=== PATIENT | male | born 1935 ===

== ENCOUNTER 2017-02-15 13:06 | Observation (INO) | payer MEDICARE ==
[2017-02-15 13:06] VITALS: BMI 29.0
[2017-02-15 14:29] LABS: BASO % 0.4 % (0.0-2.0); EOS # 0.1 K/uL (0.0-0.7); EOS % 2.2 % (0.0-4.0); HEMATOCRIT 45.7 % (35.0-51.0); LYMPH % 18.3 % (20.0-40.0); MEAN CELL VOLUME 88.8 fL (80.0-94.0); MEAN CORPUSCULAR HEMOGLOBIN 29.4 pg (27.0-31.0); MEAN CORPUSCULAR HGB CONC 33.2 g/dL (33.0-37.0); MEAN PLATELET VOLUME 8.6 fL (7.2-11.7); MONO # 0.5 K/uL (0.0-0.8); MONO % 8.5 % (0.0-10.0); NRBC % 0.1 % (0.0-2.0); RED CELL DISTRIBUTION WIDTH 14.6 % (11.5-14.5); WHITE BLOOD COUNT 5.7 K/uL (4.8-10.8)
[2017-02-15 14:33] LABS: INR 2.3
[2017-02-15 14:38] LABS: ALB/GLOB RATIO 1.5 (1.0-2.1); ALKALINE PHOSPHATASE 57 U/L (38-126); ALT/SGPT 34 U/L (21-72); AST/SGOT 26 U/L (17-59); BLOOD UREA NITROGEN 21 mg/dL (9-20); CALCIUM 8.6 mg/dl (8.6-10.4); CARBON DIOXIDE 25 mmol/L (22-30); CHLORIDE 105 mmol/L (98-107); GFR AFRICAN-AMERICAN > 60; GLUCOSE,RANDOM 101 mg/dL (75-110); POTASSIUM 4.6 mmol/L (3.6-5.2); SODIUM 138 mmol/L (132-148); TOTAL PROTEIN 7.1 g/dL (6.3-8.3)
--- NOTE | 2017-02-15 15:09 | RAD ---
PROCEDURE: CHEST RADIOGRAPH, 1 VIEW HISTORY: SOB COMPARISON: CT scan of the head chest, abdomen and pelvis dated 09/09/2015 FINDINGS: LUNGS: Clear. PLEURA: No pneumothorax or pleural fluid seen. CARDIOVASCULAR: Atherosclerotic aortic calcifications. OSSEOUS STRUCTURES: Unchanged. VISUALIZED UPPER ABDOMEN: Normal. OTHER FINDINGS: None. IMPRESSION: No active disease.
--- NOTE | 2017-02-15 15:20 | RAD ---
PROCEDURE: Radiographs of the right calcaneus/hindfoot. HISTORY: right heel pain after injury COMPARISON: None available. TECHNIQUE: Frontal and lateral radiographs of the calcaneus. FINDINGS: No fracture or joint dislocation. No focal lesion. There is a small plantar calcaneal spur. IMPRESSION: No acute fracture. Plantar calcaneal spur noted.
--- NOTE | 2017-02-15 16:55 | C.PDOC ---
History Of Present Illness 81 y/o male presents to ED with c/o right lower leg and heel pain for 9 days. Patient reports history of DVT and notes compliance with Coumadin. Patient states heel pain started on gi after the area was struck by a door. Patient also c/o intermittent chest pain since yeseterday, non-radiating, associated with exertional SOB. Denies fever, abdominal pain, nausea, vomiting, or diarrhea. Time Seen by Provider: 02/15/17 13:21 Chief Complaint (Nursing): Lower Extremity Problem/Injury History Per: Patient History/Exam Limitations: no limitations Onset/Duration Of Symptoms: Days Current Symptoms Are (Timing): Still Present Recent travel outside of the [place]: No Past Medical History Reviewed: Historical Data, Nursing Documentation, Vital Signs Vital Signs: Last Vital Signs Temp 98.2 F 02/15/17 17:14 Pulse 61 02/15/17 17:14 Resp 18 02/15/17 17:14 BP 127/53 L 02/15/17 17:14 Pulse Ox 98 02/15/17 17:14 - Medical History PMH: Arthritis, Deep Vein Thrombosis, Gall Bladder Disease, HTN, Hypercholesterolemia, Peripheral Edema Surgical History: Cholecystectomy, Endoscopy - [facility] Procedures DILATION OF INFERIOR VENA CAVA, PERCUTANEOUS APPROACH (09/08/15) DILATION OF LEFT COMMON ILIAC VEIN, PERCUTANEOUS APPROACH (09/08/15) FLUOROSCOPY BI LOW EXTREM VEIN W OTH CONTRAST, GUIDANCE (09/08/15) INTRODUCE OTH THROMBOLYTIC IN PERIPH VEIN, PERC (09/08/15) REMOVAL OF INFUSION DEVICE FROM LOWER VEIN, PERC APPROACH (09/08/15) ULTRASONOGRAPHY OF BI LOW EXTREM VEIN, INTRAVASC (09/08/15) Family History: States: Unknown Family Hx - Social History Hx Alcohol Use: Yes (SOCIALLY) Hx Substance Use: No - Immunization History Hx Tetanus Toxoid Vaccination: No Hx Influenza Vaccination: Yes Hx Pneumococcal Vaccination: Yes Review Of Systems Except As Marked, All Systems Reviewed And Found Negative. Constitutional: Negative for: Fever, Chills Cardiovascular: Positive for: Chest Pain Respiratory: Positive for: SOB with Excertion. Negative for: Cough Gastrointestinal: Negative for: Nausea, Vomiting, Abdominal Pain Musculoskeletal: Positive for: Foot Pain (R heel, R lower leg) Skin: Negative for: Rash Neurological: Negative for: Weakness, Numbness, Headache, Dizziness Physical Exam - Physical Exam Appears: Non-toxic, Other (comfortable, exertional dyspnea - sob when speaking) Skin: Normal Color, Warm, Dry Head: Atraumatic, Normacephalic Oral Mucosa: Moist Chest: Symmetrical Cardiovascular: Rhythm Regular, No Murmur Respiratory: No Accessory Muscle Use, Rales (faint), No Wheezing Gastrointestinal/Abdominal: Soft, No Tenderness Extremity: Tenderness (R heel tenderness w/o obvious swelling or deformity), Calf Tenderness (R), Capillary Refill (< 2 sec.), Other (chronic skin changes bilateral lower extremities) Extremity: Bilateral: Normal Color And Temperature Pulses: Left Dorsalis Pedis: Normal, Right Dorsalis Pedis: Normal Neurological/Psych: Oriented x3, Normal Speech, Normal Cognition ED Course And Treatment - Laboratory Results Result Diagrams: 02/15/17 14:17 02/15/17 14:17 ECG: Interpreted By Me ECG Rhythm: Sinus Rhythm Interpretation Of ECG: normal axis, Right BBB, no acute ST/T wave changes Rate From EC (bpm) O2 Sat by Pulse Oximetry: 98 (RA) Pulse Ox Interpretation: Normal - Radiology CXR: Read By Radiologist CXR Interpretation: Yes: No Acute Disease - Other Rad Right Heel XR X-Ray: Viewed By Me, Read By Radiologist Interpretation: FINDINGS: No fracture or joint dislocation. No focal lesion. There is a small plantar calcaneal spur. IMPRESSION: No acute fracture. Plantar calcaneal spur noted. Progress Note: EKG, CXR, bloodwork, venous duplex scan lower extremity, R heel x -ray ordered and reviewed. Aspirin 324mg PO given. As per vascular neurologist, chronic DVT R side. - Physician Consult Information Physician Contacted: Raman Stringer Outcome Of Conversation: Spoke with radiologist because CTA chest report not crossing over. As per him, suboptimal study, no central PE, (+) IVC filter, unable to evaluate peripheral pulm arteries. Disposition - Disposition Forms: [employer] (Pashto)
[2017-02-15] MEDS ORDERED: Iodixanol 320 MG/ML 100 ML BOTTLE IV ONE (17:49)
--- NOTE | 2017-02-15 20:12 | CT ---
PROCEDURE: CT Chest with contrast (Pulmonary Angiogram) HISTORY: DVT, R/O PE COMPARISON: None available. TECHNIQUE: Axial computed tomography images were obtained of the chest in the pulmonary arterial phase of enhancement. Coronal and sagittal reformatted images were created and reviewed. Intravenous contrast dose: Visipaque 320, 100 cc Radiation dose: Total exam DLP = 656.51 mGy-cm. This CT exam was performed using one or more of the following dose reduction techniques: Automated exposure control, adjustment of the mA and/or kV according to patient size, and/or use of iterative reconstruction technique. FINDINGS: PULMONARY ARTERIES: Intravenous contrast opacification is quite limited in this patient, in part due to what apparently is of very slow circulation time in this patient. No large pulmonary embolus is identified within the main pulmonary artery or the main right or left branches however secondary tertiary branches cannot be effectively evaluated for thrombosis unfortunately. AORTA: No thoracic aortic aneurysm appreciable. LUNGS: Linear atelectasis or fibrosis in the bilateral lower lobe somewhat. Restrained motion degrades quality examination. No central airway or parenchymal pulmonary mass is appreciated. PLEURAL SPACES: Unremarkable. No effusion or pneuomothorax. HEART: Unremarkable. No cardiomegaly. No significant pericardial effusion. LYMPH NODES: No lymphadenopathy. BONES, CHEST WALL: Unremarkable. No fracture or destructive lesion. 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 OTHER FINDINGS: Prior cholecystectomy. Inferior vena cava filter placement noted as well. IMPRESSION: Supple CT examination with no definite pattern of embolus within the main pulmonary artery or its left or right main branches. At branching distal to these central pulmonary arteries cannot be evaluated due to poor contrast opacification. No definite infiltrate pneumothorax pleural or pericardial effusion. Linear atelectasis or fibrosis in the bilateral lower lobes with no definitive mass evident. Prior cholecystectomy and inferior vena cava filter placement incidentally noted. Also, potential ankylosing spondylosis.
--- NOTE | 2017-02-15 21:50 | CP.PCM.HP ---
<StephenieEsme - Last Filed: 02/16/17 00:06> History of Present Illness - History of Present Illness History of Present Illness: History and Physical for Dr. Garcia 81M presents for shortness of breath. Patient states the shortness of breath has occurred for the last three weeks. Patient states he can't walk for more than 2 blocks because of his lower back, but is able to walk up stairs without difficulty. Patient lives in a one story home. Patient states he's never had this before. Patient states he has lower back pain, which is painful when he walks more than two blocks. 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 Patient states his most recent cath was negative one year ago. Patient denies fever, chills, nausea, vomiting, chest pain at the moment. PMH: recurrent DVTs with IVC filter 2015, HTN, Hypertension, peripheral vascular disease/insufficiency, kyphosis, ankylosing spondylitis PSH: cholecystectomy, IVC filter 2012, IVC filter 2015 Social history: former smoker 4 cig/day for twenty years. Patient quit "many years ago." Patient Denies ETOH and illicit drug use. Meds: none Famhx: denies Present on Admission - Present on Admission Any Indicators Present on Admission: Yes History of DVT/PE: Yes History of Uncontrolled Diabetes: No Urinary Catheter: No Decubitus Ulcer Present: No Past Patient History - Infectious Disease Hx of Infectious Diseases: None - Past Medical History & Family History Past Medical History?: Yes - Past Social History Smoking Status: Never Smoked - CARDIAC Hx Hypercholesterolemia: Yes Hx Hypertension: Yes Hx Peripheral Edema: Yes - MUSCULOSKELETAL/RHEUMATOLOGICAL Hx Arthritis: Yes - GASTROINTESTINAL Hx Gall Bladder Disease: Yes - GENITOURINARY/GYNECOLOGICAL Hx Genitourinary Disorders: Yes Hx Urinary Tract Infection: Yes - PSYCHIATRIC Hx Substance Use: No - SURGICAL HISTORY Hx Cholecystectomy: Yes - ANESTHESIA Hx Anesthesia: Yes Hx Anesthesia Reactions: No Hx Malignant Hyperthermia: No Meds Allergies/Adverse Reactions: Allergies Allergy/AdvReac Type Severity Reaction Status Date / Time No Known Allergies Allergy Verified 01/08/16 14:20 Physical Exam - Constitutional Appears: Non-toxic - Head Exam Head Exam: NORMAL INSPECTION - Eye Exam Eye Exam: EOMI, Normal appearance - ENT Exam ENT Exam: Mucous Membranes Moist - Respiratory Exam Respiratory Exam: NORMAL BREATHING PATTERN. absent: Accessory Muscle Use, Respiratory Distress - Cardiovascular Exam Cardiovascular Exam: REGULAR RHYTHM, +S1, +S2. absent: Bradycardia, Tachycardia - GI/Abdominal Exam GI & Abdominal Exam: Soft. absent: Tenderness - Extremities Exam Extremities exam: Positive for: full ROM, pedal edema Additional comments: 2+ pitting edema of lower extremities peripheral vascular insufficiency noted bilaterally lower extremities mottled in appearance below the knee capillary refill <2seconds bilaterally DP, PT, and AT pulses palpated bilaterally with the right pulses weaker than left - Back Exam Additional comments: patient has kyphosis, but has good rotational motion - Neurological Exam Neurological exam: Alert, Oriented x3 - Psychiatric Exam Psychiatric exam: Normal Affect, Normal Mood - Skin Skin Exam: Dry, Warm Results - Vital Signs Recent Vital Signs: Last Vital Signs Temp 98.1 F 02/15/17 21:26 Pulse 57 L 02/15/17 21:26 Resp 20 02/15/17 21:26 BP 160/69 H 02/15/17 21:26 Pulse Ox 96 02/15/17 21:26 - Labs Result Diagrams: 02/15/17 14:17 02/15/17 14:17 Labs: Laboratory Results - last 24 hr 02/15/17 02/15/17 02/15/17 14:17 14:17 14:17 WBC 5.7 RBC 5.14 Hgb 15.1 Hct 45.7 MCV 88.8 D MCH 29.4 MCHC 33.2 RDW 14.6 H Plt Count 185 MPV 8.6 Neut % (Auto) 70.6 Lymph % (Auto) 18.3 L Harris % (Auto) 8.5 Eos % (Auto) 2.2 Baso % (Auto) 0.4 Neut # 4.0 Lymph # 1.0 Harris # 0.5 Eos # 0.1 Baso # 0.0 PT 26.1 H INR 2.3 APTT 42 H Sodium 138 Potassium 4.6 Chloride 105 Carbon Dioxide 25 Anion Gap 13 BUN 21 H Creatinine 1.1 Est GFR ( Amer) > 60 Est GFR (Non-Af Amer) > 60 Random Glucose 101 Calcium 8.6 Total Bilirubin 1.0 AST 26 ALT 34 Alkaline Phosphatase 57 Total Creatine Kinase 205 H CK-MB (Mass) 1.31 Troponin I < 0.0120 NT-Pro-B Natriuret Pep 266 Total Protein 7.1 Albumin 4.3 Globulin 2.9 Albumin/Globulin Ratio 1.5 Assessment & Plan - Assessment and Plan (Free Text) Assessment: SOB with exertion for past month, with anginal symptoms f/u 02/17 ECHO outpatient stress test Ativan 2mg POQHS HTN history home medication Norvasc 5mg POQD hydralazine PRN, hold systolic BP<140 IVC filter hx DVT Warfarin 5mg POQD coag panel daily Prophylaxis: DVT: patient is on warfarin GI: Protonix fever and pain: tylenol 650mg POQ6H Diet: Heart Healthy diet discussed with Dr. Jose Casiano DO PGY1 - Date & Time Date: 02/16/17 Time: 00:03 <Chao Garcia - Last Filed: 02/16/17 00:47> Results - Vital Signs Recent Vital Signs: Last Vital Signs Temp 98.0 F 02/15/17 22:59 Pulse 55 L 02/15/17 22:59 Resp 16 02/15/17 22:59 BP 180/66 H 02/15/17 22:59 Pulse Ox 95 02/15/17 22:59 - Labs Result Diagrams: 02/15/17 14:17 02/15/17 14:17 Labs: Laboratory Results - last 24 hr 02/15/17 02/15/17 02/15/17 14:17 14:17 14:17 WBC 5.7 RBC 5.14 Hgb 15.1 Hct 45.7 MCV 88.8 D MCH 29.4 MCHC 33.2 RDW 14.6 H Plt Count 185 MPV 8.6 Neut % (Auto) 70.6 Lymph % (Auto) 18.3 L Harris % (Auto) 8.5 Eos % (Auto) 2.2 Baso % (Auto) 0.4 Neut # 4.0 Lymph # 1.0 Harris # 0.5 Eos # 0.1 Baso # 0.0 PT 26.1 H INR 2.3 APTT 42 H Sodium 138 Potassium 4.6 Chloride 105 Carbon Dioxide 25 Anion Gap 13 BUN 21 H Creatinine 1.1 Est GFR ( Amer) > 60 Est GFR (Non-Af Amer) > 60 Random Glucose 101 Calcium 8.6 Total Bilirubin 1.0 AST 26 ALT 34 Alkaline Phosphatase 57 Total Creatine Kinase 205 H CK-MB (Mass) 1.31 Troponin I < 0.0120 NT-Pro-B Natriuret Pep 266 Total Protein 7.1 Albumin 4.3 Globulin 2.9 Albumin/Globulin Ratio 1.5 Attending/Attestation - Attestation I have personally seen and examined this patient.: Yes I have fully participated in the care of the patient.: Yes I have reviewed all pertinent clinical information: Yes Notes (Text): Assessment * SOB for 1 month with house hold work, walking limited by back pain, not progressive and not symptomatic at time of exam, h/o pe, therapeutic anticoagulation, negative proximal PE on CTA, 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
[2017-02-16 08:14] LABS: BASO % 0.5 % (0.0-2.0); EOS # 0.2 K/uL (0.0-0.7); EOS % 4.3 % (0.0-4.0); HEMATOCRIT 44.6 % (35.0-51.0); LYMPH # 0.9 K/uL (1.0-4.3); MEAN CELL VOLUME 87.9 fL (80.0-94.0); MEAN CORPUSCULAR HEMOGLOBIN 29.6 pg (27.0-31.0); MEAN CORPUSCULAR HGB CONC 33.7 g/dL (33.0-37.0); MEAN PLATELET VOLUME 8.2 fL (7.2-11.7); MONO # 0.5 K/uL (0.0-0.8); MONO % 10.9 % (0.0-10.0); NRBC % 0.2 % (0.0-2.0); RED CELL DISTRIBUTION WIDTH 14.7 % (11.5-14.5); WHITE BLOOD COUNT 4.7 K/uL (4.8-10.8)
[2017-02-16 08:56] LABS: ALB/GLOB RATIO 1.5 (1.0-2.1); ALKALINE PHOSPHATASE 58 U/L (38-126); ALT/SGPT 35 U/L (21-72); AST/SGOT 21 U/L (17-59); BILIRUBIN,TOTAL 1.1 mg/dL (0.2-1.3); BLOOD UREA NITROGEN 16 mg/dL (9-20); CALCIUM 8.5 mg/dl (8.6-10.4); CARBON DIOXIDE 26 mmol/L (22-30); CHLORIDE 105 mmol/L (98-107); CHOLESTEROL 202 mg/dL (0-199); GFR AFRICAN-AMERICAN > 60; GLUCOSE,RANDOM 113 mg/dL (75-110); SODIUM 138 mmol/L (132-148); TOTAL PROTEIN 6.5 g/dL (6.3-8.3)
--- NOTE | 2017-02-16 09:49 | CARD ---
APPROVED REPORT EXAM: Two-dimensional and M-mode echocardiogram with Doppler and color Doppler. Other Information Quality : AverageRhythm : NSR INDICATION Dyspnea Chest Pain M-Mode DIMENSIONS RVDd1.02 (2.1-3.2cm)Left Atrium (MM)4.84 (2.5-4.0cm) IVSd0.78 (0.7-1.1cm)Aortic Root3.51 (2.2-3.7cm) LVDd6.72 (4.0-5.6cm)Aortic Cusp Exc.1.95 (1.5-2.0cm) PWd0.78 (0.7-1.1cm)FS (%) 30 % LVDs4.69 (2.0-3.8cm)LVEF (%)56 (>50%) Aortic Valve AoV Peak Rrssimqb572.0cm/Maria Eugenia Peak GR.9mmHg Mitral Valve MV E Ykfhkbpa83.3cm/sMV A Rcxtrino44.4cm/sE/A ratio0.8 TDI E/Lateral E'0.0E/Medial E'0.0 Tricuspid Valve TR Peak Klmgbepp542cy/sTR Peak Gr.[id number] LEFT VENTRICLE The left ventricle is normal size. There is normal left ventricular wall thickness. The left ventricular function is normal. The left ventricular ejection fraction is within the normal range. There is normal LV segmental wall motion. Transmitral Doppler flow pattern is Grade I-abnormal relaxation pattern. RIGHT VENTRICLE The right ventricle is normal size. There is normal right ventricular wall thickness. The right ventricular systolic function is normal. ATRIA The left atrium is mildly dilated. The right atrium size is normal. AORTIC VALVE The aortic valve is normal in structure. There is trace aortic regurgitation. There is no aortic valvular stenosis. MITRAL VALVE The mitral valve is normal in structure. There is no evidence of mitral valve prolapse. TRICUSPID VALVE The tricuspid valve is normal in structure. GREAT VESSELS The aortic root is normal in size. The IVC was not visualized. PERICARDIAL EFFUSION There is a trace loculated anterior pericardial effusion. <Conclusion> The left ventricle is normal size. There is normal left ventricular wall thickness. The left ventricular function is normal. The left ventricular ejection fraction is within the normal range. There is normal LV segmental wall motion. Transmitral Doppler flow pattern is Grade I-abnormal relaxation pattern.
--- NOTE | 2017-02-16 13:49 | CP.PCM.PN ---
<ChaySandra - Last Filed: 02/16/17 14:45> Subjective - Date & Time of Evaluation Date of Evaluation: 02/16/17 Time of Evaluation: 13:49 - Subjective Subjective: Medicine Progress Note Patient seen and examined. Patient states that he feels better today and is no longer experiencing shortness of breath. However, the patient complains that when he ambulates he experiences cramping in his legs. Patient also states that his right leg feels cold and that this is a new symptom. Per patient, he has not seen a tail board man since his last hospital visit one year ago. He states that at that time he had a cardiac cath and was told that his heart was healthy so he did not think he needed to follow up after discharge. Patient currently denies chest pain, palpitations, cough, dyspnea, abdominal pain, and urinary symptoms. Objective - Vital Signs/Intake and Output Vital Signs (last 24 hours): Temp Pulse Resp BP Pulse Ox 97.3 F L 54 L 18 148/67 96 02/16/17 07:20 02/16/17 07:30 02/16/17 07:20 02/16/17 07:20 02/16/17 07:20 - Medications Medications: Current Medications Acetaminophen (Tylenol 325mg Tab) 650 mg PO Q6 PRN PRN Reason: Fever >100.4 F Last Admin: 02/15/17 23:14 Dose: 650 mg Amlodipine Besylate (Norvasc) 5 mg PO DAILY [facility] Last Admin: 02/16/17 09:09 Dose: 5 mg Lorazepam (Ativan) 2 mg PO HS [facility] Pantoprazole Sodium (Protonix Inj) 40 mg IVP DAILY [facility] Last Admin: 02/16/17 09:09 Dose: 40 mg Warfarin Sodium (Coumadin) 5 mg PO DAILY [facility] - Labs Labs: 02/16/17 08:05 02/16/17 08:05 PT 26.1 SECONDS (9.7-12.2) H 02/15/17 14:17 INR 2.3 02/15/17 14:17 APTT 42 SECONDS (21-34) H 02/15/17 14:17 - Constitutional Appears: Non-toxic, No Acute Distress - Head Exam Head Exam: ATRAUMATIC, NORMOCEPHALIC - Eye Exam Eye Exam: EOMI, Normal appearance - ENT Exam ENT Exam: Mucous Membranes Moist, Normal Exam - Respiratory Exam Respiratory Exam: Clear to Ausculation Bilateral, NORMAL BREATHING PATTERN. absent: Rhonchi, Wheezes, Respiratory Distress - Cardiovascular Exam Cardiovascular Exam: REGULAR RHYTHM, +S1, +S2 - GI/Abdominal Exam GI & Abdominal Exam: Soft, Normal Bowel Sounds - Extremities Exam Additional comments: Left: 1+ pitting edema of LE, skin mottled, non-blanching, warm Right: foot cool to touch, pulses not palpable, skin mottled, non-blanching - Back Exam Additional comments: thoracic kyphosis - Neurological Exam Neurological Exam: Alert, Awake, Normal Gait, Oriented x3 - Psychiatric Exam Psychiatric exam: Normal Affect, Normal Mood - Skin Skin Exam: Dry, Intact Assessment and Plan - Assessment and Plan (Free Text) Assessment: Dyspnea SpO2 98% on room air CXR- no active disease CT chest- Supple CT examination with no definite pattern of embolus within the main pulmonary artery or its left or right main branches. No definite infiltrate pneumothorax pleural or pericardial effusion. Linear atelectasis or fibrosis in the bilateral lower lobes with no definitive mass evident. Prior cholecystectomy and inferior vena cava filter placement incidentally noted. Also , potential ankylosing spondylosis. 02/17/17 ECHO- LV EF normal Consulted Pre Fabricator Dr Matos to assess if patient should have inpatient stress test. Rule out cardiac cause of SOB. May be secondary to severe thoracic kyphosis causing stress on lungs HTN Well controlled on home medication Norvasc 5mg PO QD hydralazine PRN, hold systolic BP<140 hx DVT IVC in place as seen on CT scan Warfarin 5mg PO QD Check coag panel daily Right LE doppler + DVT femoral and popliteal arteries f/u Left LE doppler Peripheral Arterial Disease f/u arterial dopplers of lower extremities pain: tylenol 650mg POQ6H Insomnia Ativan 2mg PO QHS Prophylaxis DVT: patient is on warfarin GI: Protonix SCD contraindicated due to DVT Diet: Heart Healthy diet <Chavo Domingo - Last Filed: 02/16/17 19:44> Objective - Vital Signs/Intake and Output Vital Signs (last 24 hours): Temp Pulse Resp BP Pulse Ox 98.1 F 56 L 18 142/62 96 02/16/17 17:39 02/16/17 17:39 02/16/17 17:39 02/16/17 17:39 12/02/17 17:39 - Medications Medications: Current Medications Acetaminophen (Tylenol 325mg Tab) 650 mg PO Q6 PRN PRN Reason: Fever >100.4 F Last Admin: 02/15/17 23:14 Dose: 650 mg Amlodipine Besylate (Norvasc) 5 mg PO DAILY [facility] Last Admin: 02/16/17 09:09 Dose: 5 mg Famotidine (Pepcid) 20 mg PO BID [facility] Last Admin: 02/16/17 17:23 Dose: 20 mg Lorazepam (Ativan) 2 mg PO HS MARIA LUZ Rosuvastatin Calcium (Crestor) 5 mg PO HS MARIA LUZ Warfarin Sodium (Coumadin) 5 mg PO ONCE ONE Stop: 02/17/17 18:52 - Labs Labs: 02/16/17 08:05 02/16/17 08:05 PT 26.1 SECONDS (9.7-12.2) H 02/15/17 14:17 INR 2.3 02/15/17 14:17 APTT 42 SECONDS (21-34) H 02/15/17 14:17 Attending/Attestation - Attestation I have personally seen and examined this patient.: Yes I have fully participated in the care of the patient.: Yes I have reviewed all pertinent clinical information, including history, physical exam and plan: Yes Notes (Text): 02/16/17 19:33 Patient was seen and examined at 5:15 PM 02/16/17 [id number]. Exam, assessment and plan were thoroughly gone over with the patient Assessments: 1). SOB Secondary to Kyphosis? Secondary to worsening CAD? Does he did inpatient vs outpatient persantine stress test? F/U further recommendations from Pre Fabricator Dr. Matos. Chest X Ray: no active disease CT Chest Angio: linear atelectasis/fibrosis in the bilateral lower lobes with NO definite mass evident. 2). Hx CAD S/P Cardiac Catheterization January 2016 at [facility]: LAD 40% stenosis proximal segment. Left Circumflex 30% stenosis of mid vessel and 60% stenosis of 1st obtuse marginal artery Medical management. Patient never followed up with Cardiology 3). Hx HTN Norvasc 5 mg PO 1x/day 4). Hx Recurrent DVTs IVC Filter 2015 Warfarin 5 mg PO 1x/day 5). Hx HLD Crestor 5 mg PO 1x/day 6). PVD? F/U Arterial Dopplers 7) Ankylosing Spondylitis/Kyphosis As per CT Chest Angio. 8). Prophylaxis Pepcid 20 mg PO 2x/day Patient is on Warfarin Chavo Domingo D.O.
[2017-02-17 00:30] LABS: INR 1.8
[2017-02-17 01:10] VITALS: RESP 20
--- NOTE | 2017-02-17 03:45 | CON ---
DATE: CARDIOLOGY CONSULTATION REASON FOR CONSULTATION: Chest pain, history of DVT, and IVC filter placement in the past. HISTORY OF PRESENT ILLNESS: The patient is an 81-year-old male who is a former smoker. Patient presented to the emergency room because of intermittent chest pain, nonradiating, associated with shortness of breath. The patient did report right lower leg and heel pain. Patient denies any associated diaphoresis, dizziness, or syncope. The patient underwent cardiac catheterization in January of last year, which revealed 40% stenosis of the proximal LAD, 30% stenosis of the mid circumflex artery, and 60% stenosis of the first obtuse marginal branch. SOCIAL HISTORY: The patient is a former smoker. MEDICATIONS: Ativan 2 mg at bedtime, Coumadin 5 mg daily, Crestor 5 mg once a day, Norvasc 5 mg once a day. REVIEW OF SYSTEMS: No nausea or vomiting. No fever or chills. No productive cough. PHYSICAL EXAMINATION: GENERAL: The patient is an elderly male, who does not appear to be in any acute distress. VITAL SIGNS: Blood pressure 148/67, heart rate 53, temperature 97.3, respirations 18. HEENT: Normocephalic. CHEST: Clear. HEART: S1, S2 regular. ABDOMEN: Soft. EXTREMITIES: No edema. LABORATORY DATA: SMA-7 is within normal limits except for glucose of 115. One set of troponin is negative. Total cholesterol is elevated to 102, LDL cholesterol is elevated at 132. PTT 42, INR is 2.3. Hemoglobin and hematocrit 15 and 44.6, white count 4.7, platelet count 183,000. Echocardiogram revealed normal left ventricular size, wall thickness, and ejection fraction with grade 1 abnormal relaxation pattern. EKG revealed sinus rhythm, right bundle-branch block. CT angio of the chest, no definite embolus within the main pulmonary artery or its left or right main branches. At the branching distal to the central pulmonary arteries, cannot be elevated due to poor contrast opacification. Linear atelectasis or fibrosis in the bilateral lower lobes with no definite mass. ASSESSMENT: 1. Atypical chest pain, rule out myocardial infarction. 2. Moderate disease of the first obtuse margin branch on a cardiac catheterization done last year. 3. Hyperlipidemia. 4. History of deep vein thrombosis, status post inferior vena cava filter placement. RECOMMENDATIONS: Continue Coumadin 5 mg once a day, Crestor 5 mg once a day, Norvasc 5 mg once a day. Obtain one more 12-lead EKG and repeat troponin and if both are unremarkable, the patient can be discharged to the [facility] by his primary [place] guide, Dr. Hardy, as well as Dr. Jackeline Reno. Yogi Matos MD
[2017-02-17 08:31] LABS: INR 1.7
[2017-02-17 08:40] LABS: BASO % 0.4 % (0.0-2.0); EOS # 0.1 K/uL (0.0-0.7); EOS % 2.2 % (0.0-4.0); HEMATOCRIT 46.5 % (35.0-51.0); LYMPH # 1.7 K/uL (1.0-4.3); LYMPH % 27.4 % (20.0-40.0); MEAN CELL VOLUME 88.5 fL (80.0-94.0); MEAN CORPUSCULAR HEMOGLOBIN 29.8 pg (27.0-31.0); MEAN CORPUSCULAR HGB CONC 33.7 g/dL (33.0-37.0); MEAN PLATELET VOLUME 8.2 fL (7.2-11.7); MONO # 0.5 K/uL (0.0-0.8); MONO % 8.9 % (0.0-10.0); RED CELL DISTRIBUTION WIDTH 14.8 % (11.5-14.5); WHITE BLOOD COUNT 6.1 K/uL (4.8-10.8)
[2017-02-17 09:10] LABS: ALB/GLOB RATIO 1.5 (1.0-2.1); ALKALINE PHOSPHATASE 60 U/L (38-126); ALT/SGPT 30 U/L (21-72); AST/SGOT 41 U/L (17-59); BILIRUBIN,TOTAL 1.1 mg/dL (0.2-1.3); BLOOD UREA NITROGEN 20 mg/dL (9-20); CALCIUM 8.4 mg/dl (8.6-10.4); CARBON DIOXIDE 27 mmol/L (22-30); CHLORIDE 105 mmol/L (98-107); GFR AFRICAN-AMERICAN > 60; GLUCOSE,RANDOM 124 mg/dL (75-110); POTASSIUM 4.2 mmol/L (3.6-5.2); SODIUM 140 mmol/L (132-148); TOTAL PROTEIN 6.8 g/dL (6.3-8.3)
--- NOTE | 2017-02-17 11:31 | CP.PCM.PN ---
<Madhuri Lobo - Last Filed: 02/17/17 13:40> Subjective - Date & Time of Evaluation Date of Evaluation: 02/17/17 Time of Evaluation: 08:40 - Subjective Subjective: Medicine Note (PGY-1)----> Dr. Funmilayo Domingo's service Patient was seen and examined at bedside. Patient states that he is doing well. Patient denies chest pain, SOB, palpitations, headache, dizziness. Per patient, he is tolerating diet and able to ambulate. Patient did admit to constipation and right abdominal pain. Objective - Vital Signs/Intake and Output Vital Signs (last 24 hours): Temp Pulse Resp BP Pulse Ox 97.2 F L 56 L 20 156/67 H 97 02/16/17 23:10 02/17/17 07:28 02/16/17 23:10 02/16/17 23:10 02/16/17 23:10 Intake and Output: 02/17/17 02/17/17 06:59 18:59 Intake Total 120 Balance 120 - Medications Medications: Current Medications Acetaminophen (Tylenol 325mg Tab) 650 mg PO Q6 PRN PRN Reason: Fever >100.4 F Last Admin: 02/17/17 09:11 Dose: 650 mg Amlodipine Besylate (Norvasc) 5 mg PO DAILY [facility] Last Admin: 02/17/17 09:08 Dose: 5 mg Famotidine (Pepcid) 20 mg PO BID [facility] Last Admin: 02/17/17 09:08 Dose: 20 mg Lorazepam (Ativan) [address] [facility] Last Admin: 02/16/17 21:54 Dose: 2 mg Rosuvastatin Calcium (Crestor) 5 mg PO HS [facility] Last Admin: 02/16/17 21:54 Dose: 5 mg Warfarin Sodium (Coumadin) 5 mg PO ONCE ONE Stop: 02/17/17 18:52 - Labs Labs: 02/17/17 08:20 02/17/17 08:20 PT 19.6 SECONDS (9.7-12.2) H 02/17/17 08:20 INR 1.7 02/17/17 08:20 APTT 42 SECONDS (21-34) H 02/15/17 14:17 - Constitutional Appears: No Acute Distress - Head Exam Head Exam: ATRAUMATIC, NORMAL INSPECTION - Eye Exam Eye Exam: EOMI - ENT Exam ENT Exam: Mucous Membranes Moist - Respiratory Exam Respiratory Exam: Clear to Ausculation Bilateral, NORMAL BREATHING PATTERN - Cardiovascular Exam Cardiovascular Exam: REGULAR RHYTHM, +S1, +S2 - GI/Abdominal Exam GI & Abdominal Exam: Soft, Tenderness, Normal Bowel Sounds Additional comments: Mid Right sided abdominal tenderness - Extremities Exam Extremities Exam: absent: Calf Tenderness, Pedal Edema Additional comments: Bilateral dryness with healed wounds. - Neurological Exam Neurological Exam: Alert, Awake, Oriented x3 - Psychiatric Exam Psychiatric exam: Normal Affect - Skin Skin Exam: Normal Color Assessment and Plan (1) Dyspnea Assessment & Plan: Possibly secondary to severe thoracic kyphosis Central Service Tech, Dr. Matos on board----> Help appreciated * Management as per recommendation SPO2 (97-95% on room air) Imaging: Chest X-ray (02/15/17): No active disease. Chest CT (02/15/17): No definite pattern of embolus within the main pulmonary artery or its left or right main branches. No definite infiltrate pneumothorax pleural or pericardial effusion. Linear atelectasis or fibrosis in the bilateral lower lobes with no definitive mass evident. Echocardiogram (02/16/17): LV is normal size. Normal LV wall thickness. LV function is normal. EF is within normal range. Normal LV segment wall motion. Grade I abnormal relaxation pattern Status: Acute (2) Hypertension Assessment & Plan: Controlled Medication: * Norvasc 5mg po daily Status: Acute (3) History of DVT (deep vein thrombosis) Assessment & Plan: 09/13/16: vemogram/ removal of ekos catheters. balloon venoplasty ot cava below filter and left iliac Medication/Management: * Warfarin 5mg PO QD * Daily coag panel check Right LE doppler + DVT femoral and popliteal arteries F/u Left LE doppler Status: Acute (4) History of coronary artery disease Assessment & Plan: (Cardai catherization 02/02/16, [facility]): Moderate single vessel branch CAD. Normal Left ventricular function. LAD 40% stenosis proximal segment. Left Circumflex 30% stenosis of mid vessel and 60% stenosis of 1st obtuse marginal artery Recommendation: * Aggressive medical therapy Status: Acute (5) History of hypertension Assessment & Plan: Stable * Norvasc 5mg PO daily Status: Acute (6) History of hyperlipidemia Assessment & Plan: Crestor 5mg PO HS Status: Acute (7) Peripheral arterial disease Assessment & Plan: f/u arterial dopplers of lower extremities pain: tylenol 650mg POQ6H Status: Acute (8) Hx of ankylosing spondylitis Assessment & Plan: As per Chest CT: Kyphoscoliotic cervicothoracic spine deformity with diffuse spondylosis identified suspicious for possible ankylosing spondylosis. Status: Acute (9) Insomnia Status: Acute (10) Prophylactic measure Assessment & Plan: GI: Pepcid 20mg PO BID DVT: SCD contraindicated due to RLE DVT and awaiting LLE venous doppler result. Coumadin 5mg PO daily Status: Acute <Chavo Domingo - Last Filed: 02/17/17 16:36> Objective - Vital Signs/Intake and Output Vital Signs (last 24 hours): Temp Pulse Resp BP Pulse Ox 98.1 F 56 L 20 102/58 L 95 02/17/17 07:00 02/17/17 07:28 02/17/17 07:00 02/17/17 07:00 02/17/17 07:00 Intake and Output: 02/17/17 02/17/17 06:59 18:59 Intake Total 120 Balance 120 - Medications Medications: Current Medications Acetaminophen (Tylenol 325mg Tab) 650 mg PO Q6 PRN PRN Reason: Fever >100.4 F Last Admin: 02/17/17 09:11 Dose: 650 mg Amlodipine Besylate (Norvasc) 5 mg PO DAILY [facility] Last Admin: 02/17/17 09:08 Dose: 5 mg Docusate Sodium (Colace) 100 mg PO BID [facility] Famotidine (Pepcid) 20 mg PO BID [facility] Last Admin: 02/17/17 09:08 Dose: 20 mg Lorazepam (Ativan) 2 mg PO HS [facility] Last Admin: 02/16/17 21:54 Dose: 2 mg Rosuvastatin Calcium (Crestor) 5 mg PO HS [facility] Last Admin: 02/16/17 21:54 Dose: 5 mg Sennosides (Senokot Tab) 8.6 mg PO DAILY [facility] Last Admin: 02/17/17 15:55 Dose: 8.6 mg Warfarin Sodium (Coumadin) 5 mg PO ONCE ONE Stop: 02/17/17 18:52 - Labs Labs: 02/17/17 08:20 02/17/17 08:20 PT 19.6 SECONDS (9.7-12.2) H 02/17/17 08:20 INR 1.7 02/17/17 08:20 APTT 42 SECONDS (21-34) H 02/15/17 14:17 Attending/Attestation - Attestation I have personally seen and examined this patient.: Yes I have fully participated in the care of the patient.: Yes I have reviewed all pertinent clinical information, including history, physical exam and plan: Yes Notes (Text): 02/17/17 16:18 Patient was seen and examined at 4:00 PM 02/17/17 [id number]. Exam, assessment and plan were thoroughly gone over with the patient Also on ROS: NO longer with SOB NO chest Pain NO wheezing NO abdominal pain NO n/v/d/c NO burning/pain with urination Still with some bilateral LE pain after ambulation (he has been getting up every few hours and walking the rounds on 6tower) NO other complaints upon FULL ROS Also please note on Exam: Extremities: Bilateral Lower Legs with chronic venous insufficiency skin changes. NO ulcers noted. Bilateral UE pulses are strong and equal. Bilateral LE pulses are equal but less than UE. Some mild pitting edema from ankles to mid tibia. Assessments: 1). SOB Secondary to Kyphosis? Secondary to worsening CAD? I spoke with Central Service Tech Dr. Matos (who has reviewed his EKGs, and Echo) and he is cleared from his standpoint to follow up with as an outpatient with Central Service Tech Dr. Reno (who performed Cardiac Cath in January 2016 but with whom the patient never followed up with) for further management Secondary to undiagnosed COPD as patient has a history of smoking? Started patient on Spiriva 2 PO inhalations of 1 capsule (18 mcg) once a day via [employer] inhalation device. 2D Echocardiogram shows normal LV size, normal left ventricular wall thickness, EF is estimated to be normal, Grade I abnormal relaxation pattern. Chest X Ray: no active disease CT Chest Angio: linear atelectasis/fibrosis in the bilateral lower lobes with NO definite mass evident. 2). Hx CAD S/P Cardiac Catheterization January 2016 at [facility]: LAD 40% stenosis proximal segment. Left Circumflex 30% stenosis of mid vessel and 60% stenosis of 1st obtuse marginal artery 2D Echocardiogram 02/16/17 shows normal LV size, normal left ventricular wall thickness, EF is estimated to be normal, Grade I abnormal relaxation pattern. Medical management. Patient never followed up with Cardiology Dr. Reno after Cardiac Catheterization. He was instructed to do so 3). Hx HTN Norvasc 5 mg PO 1x/day 4). Hx Recurrent DVTs IVC Filter 2016 Warfarin 5 mg PO 1x/day Venous Doppler 02/15/17 confirms DVT on Right Femoral/Popliteal 5). Hx HLD Crestor 5 mg PO 1x/day 6). PVD? F/U Arterial Dopplers which were ordered 02/16/17 but still not done as of my exam 7) Ankylosing Spondylitis/Kyphosis As per CT Chest Angio. Will need follow up with Rheumatology as an outpatient 8). Prophylaxis Pepcid 20 mg PO 2x/day Patient is on Warfarin Medicine Team: patient may be discharged on 02/18/17 after performance and report of Arterial Dopplers He will need to follow up with his PMD Dr. Fitzpatrick and through his office obtain the following: Referral for Cardiology Dr. Reno for further management/evaluation of his CAD Referral for Mortgage Advisor Dr. Galaviz for further management/evaluation of possible COPD Referral for Facilities Engineer Dr. Jett Fan for management/evaluation of Akylosing Spondylitis Chavo Domingo D.O. 02/17/17 16:33
--- NOTE | 2017-02-17 17:58 | PN ---
DATE: SUBJECTIVE: The patient denies any chest pain or shortness of breath. PHYSICAL EXAMINATION: VITAL SIGNS: Blood pressure 102/58, heart rate 61, temperature 98.1, respirations 20. HEENT: Normocephalic. CHEST: Clear. HEART: S1, S2 regular. ABDOMEN: Soft. EXTREMITIES: No edema. LABORATORY DATA: Today's SMA-7 is within normal limits except for glucose of 124. Two sets of troponins are negative. Hemoglobin, hematocrit, white count, and platelet count are within normal limits. Repeat EKG revealed sinus rhythm with right bundle branch block. No acute ischemic changes. ASSESSMENT: 1. Atypical chest pain, myocardial infarction was ruled out. 2. Consider underlying chronic obstructive lung disease. 3. Moderate coronary artery disease with 60% first obtuse marginal branch disease on a cardiac catheterization done in 01/2016. 4. History of deep venous thrombosis and inferior vena cava filter placement. 5. Hyperlipidemia. RECOMMENDATIONS: Case was discussed with Dr. Chavo Domingo. The patient can be maintained on all of his current medications including Coumadin, Crestor, Norvasc, and Pepcid. The patient can be discharged to follow up with his cartridge filler, both Dr. Hardy and Dr. Jackeline Reno. Yogi Matos MD
[2017-02-18 06:39] LABS: EOS # 0.2 K/uL (0.0-0.7); RED CELL DISTRIBUTION WIDTH 14.6 % (11.5-14.5)
[2017-02-18 06:40] LABS: INR 1.8
[2017-02-18 06:49] LABS: ALB/GLOB RATIO 1.1 (1.0-2.1); ALKALINE PHOSPHATASE 51 U/L (38-126); ALT/SGPT 34 U/L (21-72); AST/SGOT 22 U/L (17-59); BILIRUBIN,TOTAL 0.5 mg/dL (0.2-1.3); BLOOD UREA NITROGEN 23 mg/dL (9-20); CALCIUM 7.9 mg/dl (8.6-10.4); CARBON DIOXIDE 25 mmol/L (22-30); CHLORIDE 106 mmol/L (98-107); GFR AFRICAN-AMERICAN > 60; GLUCOSE,RANDOM 113 mg/dL (75-110); SODIUM 140 mmol/L (132-148); TOTAL PROTEIN 6.5 g/dL (6.3-8.3)
[2017-02-18 06:51] LABS: BASO % 0.4 % (0.0-2.0); EOS % 3.8 % (0.0-4.0); HEMATOCRIT 41.4 % (35.0-51.0); LYMPH # 1.3 K/uL (1.0-4.3); LYMPH % 26.9 % (20.0-40.0); MEAN CELL VOLUME 87.8 fL (80.0-94.0); MEAN CORPUSCULAR HEMOGLOBIN 29.7 pg (27.0-31.0); MEAN CORPUSCULAR HGB CONC 33.8 g/dL (33.0-37.0); MEAN PLATELET VOLUME 8.5 fL (7.2-11.7); MONO # 0.6 K/uL (0.0-0.8); MONO % 12.9 % (0.0-10.0); WHITE BLOOD COUNT 4.8 K/uL (4.8-10.8)
--- NOTE | 2017-02-18 07:50 | CP.PCM.PN ---
Subjective - Date & Time of Evaluation Date of Evaluation: 02/18/17 Time of Evaluation: 07:48 - Subjective Subjective: Progress Note for Dr. Elias Patient seen and examined at bedside, no acute events overnight. Patient denies fever, chills, shortness of breath, leg pain, foot pain. Patient admits to constipation. Objective - Vital Signs/Intake and Output Vital Signs (last 24 hours): Temp Pulse Resp BP Pulse Ox 97.3 F L 56 L 20 135/64 95 02/17/17 23:15 02/17/17 23:15 02/17/17 23:15 02/17/17 23:15 02/17/17 23:15 Intake and Output: 02/18/17 02/18/17 06:59 18:59 Intake Total 240 Balance 240 - Medications Medications: Current Medications Acetaminophen (Tylenol 325mg Tab) 650 mg PO Q6 PRN PRN Reason: Fever >100.4 F Last Admin: 02/17/17 09:11 Dose: 650 mg Amlodipine Besylate (Norvasc) 5 mg PO DAILY [facility] Last Admin: 02/17/17 09:08 Dose: 5 mg Docusate Sodium (Colace) 100 mg PO BID [facility] Last Admin: 02/17/17 18:00 Dose: 100 mg Famotidine (Pepcid) 20 mg PO BID [facility] Last Admin: 02/17/17 18:00 Dose: 20 mg Lorazepam (Ativan) 2 mg PO HS [facility] Last Admin: 02/17/17 21:28 Dose: 2 mg Rosuvastatin Calcium (Crestor) 5 mg PO HS [facility] Last Admin: 02/17/17 21:27 Dose: 5 mg Sennosides (Senokot Tab) 8.6 mg PO DAILY [facility] Last Admin: 02/17/17 15:55 Dose: 8.6 mg Tiotropium [place] (Spiriva) 18 mcg INH RQ24 [facility] - Labs Labs: 02/18/17 06:24 02/18/17 06:24 PT 21.1 SECONDS (9.7-12.2) H 02/18/17 06:24 INR 1.8 02/18/17 06:24 APTT 42 SECONDS (21-34) H 02/15/17 14:17 - Constitutional Appears: Non-toxic - Head Exam Head Exam: NORMAL INSPECTION - Eye Exam Eye Exam: EOMI, Normal appearance - ENT Exam ENT Exam: Mucous Membranes Moist - Respiratory Exam Respiratory Exam: Chest Wall Tenderness, NORMAL BREATHING PATTERN - Cardiovascular Exam Cardiovascular Exam: REGULAR RHYTHM, +S1, +S2 - GI/Abdominal Exam GI & Abdominal Exam: Soft, Normal Bowel Sounds - Extremities Exam Extremities Exam: Full ROM - Back Exam Back Exam: Full ROM - Neurological Exam Neurological Exam: Alert, Awake - Skin Skin Exam: Warm Additional comments: lower extremity edema with peripheral vascular insufficiency. 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 Matos * Management as per recommendation SPO2 (97-95% on room air) Imaging: Chest X-ray (02/15/17): No active disease. Chest CT (02/15/17): No definite pattern of embolus within the main pulmonary artery or its left or right main branches. No definite infiltrate pneumothorax pleural or pericardial effusion. Linear atelectasis or fibrosis in the bilateral lower lobes with no definitive mass evident. Echocardiogram (02/16/17): LV is normal size. Normal LV wall thickness. LV function is normal. EF is within normal range. Normal LV segment wall motion. Grade I abnormal relaxation pattern Status: Acute (2) Hypertension Assessment & Plan: Controlled Medication: * Norvasc 5mg po daily Status: Acute (3) History of DVT (deep vein thrombosis) Assessment & Plan: 09/13/16: vemogram/ removal of ekos catheters. balloon venoplasty ot cava below filter and left iliac Medication/Management: * Warfarin 5mg PO QD * Daily coag panel check Right LE doppler + DVT femoral and popliteal arteries F/u arterial doppler of lower extremities Status: Acute (4) History of coronary artery disease Assessment & Plan: (Cardaic catherization 02/02/16, [facility]): Moderate single vessel branch CAD. Normal Left ventricular function. LAD 40% stenosis proximal segment. Left Circumflex 30% stenosis of mid vessel and 60% stenosis of 1st obtuse marginal artery Recommendation: * Aggressive medical therapy Status: Acute (5) History of hypertension Assessment & Plan: Stable * Norvasc 5mg PO daily Status: Acute (6) History of hyperlipidemia Assessment & Plan: Crestor 5mg PO HS Status: Acute (7) Peripheral arterial disease Assessment & Plan: f/u arterial dopplers of lower extremities pain: tylenol 650mg POQ6H Status: Acute (8) Hx of ankylosing spondylitis Assessment & Plan: As per Chest CT: Kyphoscoliotic cervicothoracic spine deformity with diffuse spondylosis identified suspicious for possible ankylosing spondylosis. Status: Acute (9) Insomnia Status: Acute 10) constipation colace 100mg increased to TID dulcolax 5mg once (11) Prophylaxis Assessment & Plan: GI: Pepcid 20mg PO BID DVT: SCD contraindicated due to RLE DVT and awaiting LLE venous doppler result. Coumadin 5mg PO daily Status: Acute
[2017-02-18] MEDS ORDERED: Tiotropium 18 mcg Cap For Inhalation INH SCH (08:00)
[2017-02-18 08:14] VITALS: BP 122/62; TEMP 98.3; O2SAT 97
[2017-02-18] MEDS ORDERED: Bisacodyl 5mg EC Tab PO ONE (08:45)
[2017-02-18 09:19] VITALS: PULSE 51
--- NOTE | 2017-02-18 13:03 | VASCLAB ---
PROCEDURE: Right Lower Extremity Venous Duplex Exam. HISTORY: RIGHT LEG PAIN R/O DVT PRIORS: None. TECHNIQUE: Right common femoral, femoral, popliteal and posterior tibial, peroneal and great saphenous veins were evaluated. Flow was assessed with color Doppler, compressibility, assessment of phasic flow and augmentation response. Report prepared by PAT López, RVT FINDINGS: RIGHT: 1. Common Femoral Vein: 1.1. Compressibility - Fully compressible: Thrombus - None: Flow - Phasic: Augmentation -Normal: Reflux - None. 2. Femoral Vein: 2.1. Compressibility - Partial: Thrombus - Chronic: Flow - Absent : Augmentation -None: Reflux - None. 3. Popliteal Vein: 3.1. Compressibility - Partial: Thrombus - Chronic: Flow - Absent : Augmentation -None: Reflux - None. 4. Posterior Tibial Vein: 4.1. Compressibility - Fully compressible: Thrombus - None: Flow - Phasic: Augmentation -Normal: Reflux - None. 5. Peroneal Vein: 5.1. Compressibility - Fully compressible: Thrombus - None: Flow - Phasic: Augmentation -Normal: Reflux - None. 6. Great Saphenous Vein: 6.1. Compressibility - Fully compressible: Thrombus -None: Flow - Phasic: Augmentation - Normal: Reflux - None. OTHER FINDINGS: Dr. Otto notified about the findings. 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 Normal venous flow noted in the left common femoral vein.
--- NOTE | 2017-02-18 13:09 | VASCLAB ---
PROCEDURE: Left Lower Extremity Venous Duplex Exam. HISTORY: swelling, Hx DVT PRIORS: None. TECHNIQUE: Left common femoral, femoral, popliteal and posterior tibial, peroneal and great saphenous veins were evaluated. Flow was assessed with color Doppler, compressibility, assessment of phasic flow and augmentation response. Report prepared by PAT López, RVT FINDINGS: LEFT: 1. Common Femoral Vein: 1.1. Compressibility - Fully compressible: Thrombus - None : Flow - Phasic: Augmentation -Normal: Reflux - None. 2. Femoral Vein: 2.1. Compressibility - Fully compressible: Thrombus - None: Flow - Phasic: Augmentation -Normal: Reflux - Severe. 3. Popliteal Vein: 3.1. Compressibility - Partial: Thrombus - Chronic: Flow - Reduced : Augmentation -Reduced: Reflux - None. 4. Posterior Tibial Vein: 4.1. Compressibility - Fully compressible: Thrombus - None: Flow - Phasic: Augmentation -Normal: Reflux - Severe. 5. Peroneal Vein: 5.1. Compressibility - Fully compressible: Thrombus - None: Flow - Phasic: Augmentation -Normal: Reflux - Severe. 6. Great Saphenous Vein: 6.1. Compressibility - Fully compressible: Thrombus - None: Flow - Phasic: Augmentation - Normal: Reflux - None. OTHER FINDINGS: Intima wall thickening of the left femoral vein. 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 Severe valvular incompetence of the left femoral, posterior tibial and peroneal veins. Normal venous flow noted in the right common femoral vein.
--- NOTE | 2017-02-18 13:10 | VASCLAB ---
STUDY DESCRIPTION: HISTORY: cold extremities, assess for PAD PRIORS: None. TECHNIQUE: Pulse volume recording waveforms and segmental pressures of bilateral lower extremities at multiple levels were obtained. Ankle Brachial Indices (ABIs) were calculated. Report prepared by PAT López, RVT RIGHT LOWER EXTREMITY: * Brachial artery: Pressure - 143 mmHg. * High thigh: Pressure - mmHg: Ratio - : PVR waveform - Pulsatile * Low thigh: Pressure - mmHg: Ratio - PVR waveform: Pulsatile * Calf: Pressure - mmHg: Ratio - PVR waveform: Pulsatile * Posterior tibial Artery: Pressure - 180 mmHg: Ratio - 1.22 PVR waveform: Pulsatile * Dorsalis pedis Artery: Pressure - 193 mmHg: Ratio - 1.31 PVR waveform: Pulsatile * Great toe: Pressure - mmHg: Ratio - PVR waveform: Ankle brachial index (JANICE): 1.31 LEFT LOWER EXTREMITY: * Brachial artery: Pressure - 147 mmHg. * High thigh: Pressure - mmHg: Ratio - : PVR waveform - Pulsatile * Low thigh: Pressure - mmHg: Ratio - PVR waveform: Pulsatile * Calf: Pressure - mmHg: Ratio - PVR waveform: Pulsatile * Posterior tibial Artery: Pressure - 220 mmHg: Ratio - NC PVR waveform: Pulsatile * Dorsalis pedis Artery: Pressure - 220 mmHg: Ratio - NC PVR waveform: Pulsatile * Great toe: Pressure - mmHg: Ratio - PVR waveform: Ankle brachial index (JANICE): NC OTHER FINDINGS: Right: Left: IMPRESSION: Right: The ankle pressure index of the right lower extremity is non-diagnostic due to possible arterial wall calcifications. Waveforms are pulsatile. Left: The ankle pressure index of the left lower extremity is non-diagnostic due to possible arterial wall calcifications. Waveforms are pulsatile. Recommend CT angiogram.
--- NOTE | 2017-02-18 14:20 | CP.PCM.DIS ---
<Esme Casiano - Last Filed: 02/18/17 19:06> Provider - Provider Date of Admission: 02/15/17 19:48 Attending physician: Kirstin Elias DO Consults: Cardiology Consult: Dr. Matos Time Spent in preparation of Discharge (in minutes): 35 Hospital Course - Lab Results Lab Results: Most Recent Lab Values WBC 4.8 K/uL (4.8-10.8) 02/18/17 06:24 RBC 4.71 Mil/uL (4.40-5.90) 02/18/17 06:24 Hgb 14.0 g/dL (12.0-18.0) 02/18/17 06:24 Hct 41.4 % (35.0-51.0) 02/18/17 06:24 MCV 87.8 fL (80.0-94.0) 02/18/17 06:24 MCH 29.7 pg (27.0-31.0) 02/18/17 06:24 MCHC 33.8 g/dL (33.0-37.0) 02/18/17 06:24 RDW 14.6 % (11.5-14.5) H 02/18/17 06:24 Plt Count 185 K/uL (130-400) 02/18/17 06:24 MPV 8.5 fL (7.2-11.7) 02/18/17 06:24 Neut % (Auto) 56.0 % (50.0-75.0) 02/18/17 06:24 Lymph % (Auto) 26.9 % (20.0-40.0) 02/18/17 06:24 [place] % (Auto) 12.9 % (0.0-10.0) H 02/18/17 06:24 Eos % (Auto) 3.8 % (0.0-4.0) 02/18/17 06:24 Baso % (Auto) 0.4 % (0.0-2.0) 02/18/17 06:24 Neut # 2.7 K/uL (1.8-7.0) 02/18/17 06:24 Lymph # 1.3 K/uL (1.0-4.3) 02/18/17 06:24 [place] # 0.6 K/uL (0.0-0.8) 02/18/17 06:24 Eos # 0.2 K/uL (0.0-0.7) 02/18/17 06:24 Baso # 0.0 K/uL (0.0-0.2) 02/18/17 06:24 PT 21.1 SECONDS (9.7-12.2) H 02/18/17 06:24 INR 1.8 02/18/17 06:24 APTT 42 SECONDS (21-34) H 02/15/17 14:17 Sodium 140 mmol/L (132-148) 02/18/17 06:24 Potassium 4.0 mmol/L (3.6-5.2) 02/18/17 06:24 Chloride 106 mmol/L (98-107) 02/18/17 06:24 Carbon Dioxide 25 mmol/L (22-30) 02/18/17 06:24 Anion Gap 13 (10-20) 02/18/17 06:24 BUN 23 mg/dL (9-20) H 02/18/17 06:24 Creatinine 1.1 mg/dL (0.8-1.5) 02/18/17 06:24 Est GFR ( Amer) > 60 02/18/17 06:24 Est GFR (Non-Af Amer) > 60 02/18/17 06:24 Random Glucose 113 mg/dL (75-110) H 02/18/17 06:24 Calcium 7.9 mg/dl (8.6-10.4) L 02/18/17 06:24 Total Bilirubin 0.5 mg/dL (0.2-1.3) 02/18/17 06:24 AST 22 U/L (17-59) 02/18/17 06:24 ALT 34 U/L (21-72) 02/18/17 06:24 Alkaline Phosphatase 51 U/L (38-126) 02/18/17 06:24 Ammonia 21 umol/L (9-33) 02/16/17 11:52 Total Creatine Kinase 205 U/L (55-170) H 02/15/17 14:17 CK-MB (Mass) 1.31 ng/mL (0.0-3.38) 02/15/17 14:17 Troponin I < 0.0120 ng/mL (0.00-0.120) 02/16/17 16:49 NT-Pro-B Natriuret Pep 266 pg/mL (0-900) 02/15/17 14:17 Total Protein 6.5 g/dL (6.3-8.3) 02/18/17 06:24 Albumin 3.4 g/dL (3.5-5.0) L 02/18/17 06:24 Globulin 3.1 gm/dL (2.2-3.9) 02/18/17 06:24 Albumin/Globulin Ratio 1.1 (1.0-2.1) 02/18/17 06:24 Triglycerides 112 mg/dL (0-149) 02/16/17 08:05 Cholesterol 202 mg/dL (0-199) H 02/16/17 08:05 LDL Cholesterol Direct 132 mg/dL (0-129) H 02/16/17 08:05 HDL Cholesterol 40 mg/dL (30-70) 02/16/17 08:05 Vancomycin Trough < 5.0 ug/mL (5.0-10.0) L 02/16/17 11:52 - Hospital Course Hospital Course: HPI 81M presents for shortness of breath. Patient states the shortness of breath has occurred for the last three weeks. Patient states he can't walk for more than 2 blocks because of his lower back, but is able to walk up stairs without difficulty. Patient lives in a one story home. Patient states he's never had this before. Patient states he has lower back pain, which is painful when he walks more than two blocks. 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 Patient states his most recent cath was negative one year ago. Patient denies fever, chills, nausea, vomiting, chest pain at the moment. Hospital Course Patient admitted and In the emergency room, patient had a chest xray which showed no acute disease. EKG normal sinus rhythm at 62bpm with right bundle branch block. 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 normal venous flow noted in left common femoral vein. Heel xray showed no acute fracture. noted to have plantar calcaneal spur Due to history of shortness of breath and right DVT in lower extremity, patient had a chest CT done which showed no evidence of PE in main pulmonary artery or left or right main branches. No pericardial effusion or infiltrate pneumothorax. potential ankylosing spondylosis BNP was ordered in Emergency room showing 266. Due to leg swelling and shortness of breath, patient had an echo ordered to evaluate leg edema and shortness of breath: Grade I abnormal relaxation pattern for transmitral doppler flow. Left ventricle is normal, normal left ventricular wall thickness. Patient also had a lower extremity arterial duplex showing right ankle pressure index of right lower extremity: non-diagnostic due to possible arterial wall calcifications. Left ankle pressure index is non-diagnostic due to possible arterial wall calcifications. CTA angiogram recommended Dr. Matos Cardiology Consult saw patient and said there was moderate disease of first obtuse margin branch on a cardiac catheterization done last year (Moderate single vessel branch CAD. Normal Left ventricular function. LAD 40% stenosis proximal segment. Left Circumflex 30% stenosis of mid vessel and 60 % stenosis of 1st obtuse marginal artery). Recommendations are to continue coumadin 5mg POQD, crestor 5mg POQD, Norvasc 5mg POQD. Patient can be discharged to follow up with primary machine zipper trimmer DR. Hardy and Dr. Jackeline Reno with one more 12 lead EKG and repeat troponin. 02/16 EKG normal sinus rhythm at 62bpm with right bundle branch block, EF 56% Troponin ordered was negative. Patient is to be discharged to follow up with Dr. Fitzpatrick as well as Deputy Assessor for stress test and cardiology follow up, rheumatology to work up ankylosing spondlyosis, and lathe mechanic to reassess pulmonary function. Discharge Orders Coumadin 5mg POQD crestor 5mg POQD Norvasc 5mg POQD ASA 81mg POQD #30 Crestor 5mg POQHS#14 Albuterol HFA IH Q6H PRN #1 puff PRN shortness of breath Tiotropium 18mcg IH daily #30 cap Tiotropium [place] inhaler 1 inhaler INH Daily Discharge Medications: Discharge Orders: follow up with Dr. Fitzpatrick for HLD management (high cholesterol found on admission), and referrals: Referral for Cardiology Dr. Reno for further management/evaluation of his CAD Referral for Cigarette Stamper Dr. Galaviz for further management/evaluation of possible COPD Referral for Agricultural Equipment Operator Dr. Jett Fan for management/evaluation of Akylosing Spondylitis - Date & Time of H&P Date of H&P: 02/18/17 Time of H&P: 14:20 Discharge Exam - Head Exam Head Exam: NORMAL INSPECTION - Eye Exam Eye Exam: EOMI, Normal appearance - ENT Exam ENT Exam: Mucous Membranes Moist - Neck Exam Additional comments: patient has kyphosis. decreased range of motion - Respiratory Exam Respiratory Exam: NORMAL BREATHING PATTERN. absent: Respiratory Distress - Cardiovascular Exam Cardiovascular Exam: REGULAR RHYTHM, +S1, +S2 - GI/Abdominal Exam GI & Abdominal Exam: Soft. absent: Tenderness - Extremities Exam Extremities exam: full ROM, pedal edema Additional comments: DP, PT, AT pulses palpable bilaterally - Neurological Exam Neurological exam: Alert, Oriented x3 - Psychiatric Exam Psychiatric exam: Normal Affect, Normal Mood - Skin Skin Exam: Dry, Intact Discharge Plan - Discharge Medications Prescriptions: RX: Albuterol HFA [Ventolin HFA 90 mcg/actuation (8 g)] 1 puff IH Q6 PRN #1 puff PRN Reason: Shortness Of Breath RX: Aspirin 81 mg PO DAILY #30 tab.chew RX: Rosuvastatin Calcium [Crestor] 5 mg PO HS #14 tab Tiotropium [Spiriva] 18 mcg IH DAILY #30 cap Tiotropium [place] Inhaler [Spiriva Inhalation Handihaler Device] 1 inhaler INH DAILY #1 inhaler - Follow Up Plan Condition: FAIR Disposition: HOME/ ROUTINE Instructions: Albuterol (By breathing), Warfarin (By mouth), Aspirin (By mouth) , Rosuvastatin (By mouth), Tiotropium (By breathing), Chest Pain (DC), Heart Healthy Diet (DC), Deep Venous Thrombosis (DC) Additional Instructions: He will need to follow up with his PMD Dr. Fitzpatrick and through his office obtain the following: Referral for Cardiology Dr. Reno for further management/evaluation of his CAD Referral for Cigarette Stamper Dr. Galaviz for further management/evaluation of possible COPD Referral for Agricultural Equipment Operator Dr. Jett Fan for management/evaluation of Akylosing Spondylitis Referral for Vascular Surgery Dr. Parker for CTangiogram abdomen for ileofemoral runoff to evaluate blood flow of lower extremities. 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 Discharge medications Coumadin 5mg POQD crestor 5mg POQD Norvasc 5mg POQD ASA 81mg POQD #30 Crestor 5mg POQHS#14 Albuterol HFA IH Q6H PRN #1 puff PRN shortness of breath Tiotropium 18mcg IH daily #30 cap Tiotropium [place] inhaler 1 inhaler INH Daily Referrals: aSlty Galaviz MD [Staff Provider] - Mohit Parker Jr., MD [Staff Provider] - Maximino Fitzpatrick MD [Staff Provider] - Jackeline Reno MD [Staff Provider] - <Kirstin Elias V - Last Filed: 02/18/17 20:06> Provider - Provider Date of Admission: 02/15/17 19:48 Attending physician: Kirstin Elias, Hospital Course - Lab Results Lab Results: Most Recent Lab Values WBC 4.8 K/uL (4.8-10.8) 02/18/17 06:24 RBC 4.71 Mil/uL (4.40-5.90) 02/18/17 06:24 Hgb 14.0 g/dL (12.0-18.0) 02/18/17 06:24 Hct 41.4 % (35.0-51.0) 02/18/17 06:24 MCV 87.8 fL (80.0-94.0) 02/18/17 06:24 MCH 29.7 pg (27.0-31.0) 02/18/17 06:24 MCHC 33.8 g/dL (33.0-37.0) 02/18/17 06:24 RDW 14.6 % (11.5-14.5) H 02/18/17 06:24 Plt Count 185 K/uL (130-400) 02/18/17 06:24 MPV 8.5 fL (7.2-11.7) 02/18/17 06:24 Neut % (Auto) 56.0 % (50.0-75.0) 02/18/17 06:24 Lymph % (Auto) 26.9 % (20.0-40.0) 02/18/17 06:24 [place] % (Auto) 12.9 % (0.0-10.0) H 02/18/17 06:24 Eos % (Auto) 3.8 % (0.0-4.0) 02/18/17 06:24 Baso % (Auto) 0.4 % (0.0-2.0) 02/18/17 06:24 Neut # 2.7 K/uL (1.8-7.0) 02/18/17 06:24 Lymph # 1.3 K/uL (1.0-4.3) 02/18/17 06:24 [place] # 0.6 K/uL (0.0-0.8) 02/18/17 06:24 Eos # 0.2 K/uL (0.0-0.7) 02/18/17 06:24 Baso # 0.0 K/uL (0.0-0.2) 02/18/17 06:24 PT 21.1 SECONDS (9.7-12.2) H 02/18/17 06:24 INR 1.8 02/18/17 06:24 APTT 42 SECONDS (21-34) H 02/15/17 14:17 Sodium 140 mmol/L (132-148) 02/18/17 06:24 Potassium 4.0 mmol/L (3.6-5.2) 02/18/17 06:24 Chloride 106 mmol/L (98-107) 02/18/17 06:24 Carbon Dioxide 25 mmol/L (22-30) 02/18/17 06:24 Anion Gap 13 (10-20) 02/18/17 06:24 BUN 23 mg/dL (9-20) H 02/18/17 06:24 Creatinine 1.1 mg/dL (0.8-1.5) 02/18/17 06:24 Est GFR ( Amer) > 60 02/18/17 06:24 Est GFR (Non-Af Amer) > 60 02/18/17 06:24 Random Glucose 113 mg/dL (75-110) H 02/18/17 06:24 Calcium 7.9 mg/dl (8.6-10.4) L 02/18/17 06:24 Total Bilirubin 0.5 mg/dL (0.2-1.3) 02/18/17 06:24 AST 22 U/L (17-59) 02/18/17 06:24 ALT 34 U/L (21-72) 02/18/17 06:24 Alkaline Phosphatase 51 U/L (38-126) 02/18/17 06:24 Ammonia 21 umol/L (9-33) 02/16/17 11:52 Total Creatine Kinase 205 U/L (55-170) H 02/15/17 14:17 CK-MB (Mass) 1.31 ng/mL (0.0-3.38) 02/15/17 14:17 Troponin I < 0.0120 ng/mL (0.00-0.120) 02/16/17 16:49 NT-Pro-B Natriuret Pep 266 pg/mL (0-900) 02/15/17 14:17 Total Protein 6.5 g/dL (6.3-8.3) 02/18/17 06:24 Albumin 3.4 g/dL (3.5-5.0) L 02/18/17 06:24 Globulin 3.1 gm/dL (2.2-3.9) 02/18/17 06:24 Albumin/Globulin Ratio 1.1 (1.0-2.1) 02/18/17 06:24 Triglycerides 112 mg/dL (0-149) 02/16/17 08:05 Cholesterol 202 mg/dL (0-199) H 02/16/17 08:05 LDL Cholesterol Direct 132 mg/dL (0-129) H 02/16/17 08:05 HDL Cholesterol 40 mg/dL (30-70) 02/16/17 08:05 Vancomycin Trough < 5.0 ug/mL (5.0-10.0) L 02/16/17 11:52 Attending/Attestation - Attestation I have personally seen and examined this patient.: Yes I have fully participated in the care of the patient.: Yes I have reviewed all pertinent clinical information, including history, physical exam and plan: Yes Notes (Text): Patient seen, examined, and case discussed with day-time resident. Patient seen this afternoon. Patient denies acute complaints. Patient is a former smoker. Patient has chronic history of bilateral DVTS, on Coumadin and s/ p IVC filter. Patient understands he will need to follow-up with Dr. Reno, since last visit was one year ago. Per cardiology seasonal customer service associate, patient stable per cardio standpoint to follow-up. Patient is not in acute exacerbation. Patient is articulate, speaking full sentences has no accessory muscle use, no in distress. Patient saturating oxygen at 95-97% on room air. Patient recommended to follow-up with his PMD, Dr Fitzpatrick and will need referrals for cardiology, pulmonary, vascular surgery and rheumatology for his chronic conditions. New prescriptions: 1) Aspirin 81mg PO daily 2) Spiriva 18mcg inhaled q daily with handinhaler Discontinued Ativan on discharge. Unable to start beta sari secondary to bradycardia. Blood pressure controlled on Norvasc. Patient is on statin. This is a summary of patient's hospitalization. Please see EMR for further details. Discharge Diagnoses: 1). Shortness of Breathe-Chronic * Secondary to worsening CAD? My Colleague spoke with Deputy Assessor Dr. Matos (who has reviewed his EKGs, and Echo) and he is cleared from his standpoint to follow up with as an outpatient with Deputy Assessor Dr. Reno ( who performed Cardiac Cath in January 2016 but with whom the patient never followed up with) for further management. Patient affirms he needs to follow-up with Dr. Reno. * Secondary to undiagnosed COPD as patient has a history of smoking. Patient does not appear in acute exacerbation. In Hospital, patient started patient on Spiriva 2 PO inhalations of 1 capsule (18 mcg) once a day via HandiHaler inhalation device. Patient does not smoke currently, but is a former smoker. * 2D Echocardiogram shows normal LV size, normal left ventricular wall thickness , EF is estimated to be normal, Grade I abnormal relaxation pattern. * Chest X Ray: no active disease * CT Chest Angio: linear atelectasis/fibrosis in the bilateral lower lobes with NO definite mass evident. * Recommended to follow-up with cardiology and lathe mechanic as outpatient * Patient is articulate, speaking full sentences has no accessory muscle use, no in distress. Patient saturating oxygen at 95-97% on room air. 2). Hx CAD * S/P Cardiac Catheterization January 2016 at [facility]: LAD 40% stenosis proximal segment. Left Circumflex 30% stenosis of mid vessel and 60% stenosis of 1st obtuse marginal artery * 2D Echocardiogram 02/16/17 shows normal LV size, normal left ventricular wall thickness, EF is estimated to be normal, Grade I abnormal relaxation pattern. * My Colleague spoke with Deputy Assessor Dr. Matos (who has reviewed his EKGs , and Echo) and he is cleared from his standpoint to follow up with as an outpatient with Deputy Assessor Dr. Reno (who performed Cardiac Cath in January 2016 but with whom the patient never followed up with) for further management. Patient affirms he needs to follow-up with Dr. Reno. * Patient never followed up with Cardiology Dr. Reno after Cardiac Catheterization. He was instructed to do so 3). Hx HTN * Norvasc 5 mg PO 1x/day 4). Hx Recurrent DVTs * IVC Filter 2015 * Warfarin 5 mg PO 1x/day * Venous Doppler 02/15/17 confirms DVT on Righ Femoral/Popliteal * Venous doppler: Left lower extremity DVT+ 5). Hx HLD * Crestor 5 mg PO 1x/day 6). PVD * Arterial dopplers completed; Noncompressible. Patient also has noted DVTs b/l * Will need to follow-up with vascular surgery or cardiology for further workup * Patient recommended to take Aspirin and continue his Coumadin 7) Ankylosing Spondylitis/Kyphosis * As per CT Chest Angio. * Recommended Rheumatology as an outpatient 8). Prophylaxis * Pepcid 20 mg PO 2x/day * Patient is on Warfarin * s/p IVC filter
--- NOTE | 2017-02-18 17:58 | CARD ---
APPROVED REPORT EKG Measurement Heart [id number] [id number] <Conclusion> Normal sinus rhythm Right bundle branch block Abnormal ECG
--- NOTE | 2017-02-18 20:07 | PN ---
SUBJECTIVE: The patient denies any chest pain. PHYSICAL EXAMINATION: VITAL SIGNS: Blood pressure 122/62, heart rate 80, earlier was 66, temperature 98.3, respiration 20. HEENT: Normocephalic. CHEST: Clear. HEART: S1, S2, regular. ABDOMEN: Soft. EXTREMITIES: No edema. LABORATORY DATA: Today INR is 1.8. Hemoglobin, hematocrit, white count and platelet count are within normal limits. Today's SMA-7 is within normal limits except for glucose of 113 and BUN of 23. ASSESSMENT: 1. Chest pain, myocardial infarction is ruled out. 2. Moderate branch coronary artery disease with 60% stenosis of the first obtuse marginal branch. 3. Chronic deep venous thrombosis over the left popliteal vein with mild reduction in venous return. Severe valvular incompetence of the left femoral, posterior tibial and peroneal vein. RECOMMENDATIONS: Continue current Coumadin 5 mg daily, Crestor 5 mg once a day, amlodipine at 5 mg once a day, Spiriva 18 mcg inhalation daily. Yogi Matos MD
--- NOTE | 2017-02-18 23:21 | CARD ---
APPROVED REPORT EKG Measurement Heart [id number] <Conclusion> Normal sinus rhythm Right bundle branch block Abnormal ECG
== END 2017-02-18 16:45 | disposition home or self-care (01) ==
LOC: C.ER 13:06 → C.9E 19:48 → C.6T 21:20
PROVIDERS: ADMIT Hospitalist; ATTEND Hospitalist
DX: R06.02 Shortness of breath (principal); R07.89 Other chest pain; I25.10 Atherosclerotic heart disease of native coronary artery without angina pectoris; I82.532 Chronic embolism and thrombosis of left popliteal vein; Z79.01 Long term (current) use of anticoagulants; M45.9 Ankylosing spondylitis of unspecified sites in spine; M40.209 Unspecified kyphosis, site unspecified; R60.0 Localized edema; Z87.891 Personal history of nicotine dependence; Z86.711 Personal history of pulmonary embolism; E78.5 Hyperlipidemia, unspecified; K59.00 Constipation, unspecified; R10.9 Unspecified abdominal pain; M79.671 Pain in right foot
CPT/HCPCS: 36415; 71010; 71275; 73650; 80053; 80061; 80202; 82140; 82550; 82553; 83880; 84484; 85025; 85610; 85730; 93005; 93306; 93923; 93971; 94640; 96374; 97116; 97161; 99285; C9113; G0378; G8978; G8979; G8980; J0360; Q9967

== ENCOUNTER 2017-03-28 09:07 | Emergency (ER) | payer MEDICARE ==
[2017-03-28 09:07] VITALS: BMI 29.0
--- NOTE | 2017-03-28 09:29 | C.PDOC ---
History Of Present Illness FEVER, R UPPER BACK PAIN, NVD X SEV WEEKS. DC 02/2017, NEG HOLGUIN FOR PE. 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 EKG normal sinus rhythm at 62bpm with right bundle branch block. 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 normal venous flow noted in left common femoral vein. chest CT done which showed no evidence of PE in main pulmonary artery or left or right main branches. No pericardial effusion or infiltrate pneumothorax. potential ankylosing spondylosis echo ordered to evaluate leg edema and shortness of breath: Grade I abnormal relaxation pattern for transmitral doppler flow. Left ventricle is normal, normal left ventricular wall thickness. Patient also had a lower extremity arterial duplex showing right ankle pressure index of right lower extremity: non -diagnostic due to possible arterial wall calcifications. Left ankle pressure index is non-diagnostic due to possible arterial wall calcifications. Dr. Matos Cardiology Consult saw patient and said there was moderate disease of first obtuse margin branch on a cardiac catheterization done last year (Moderate single vessel branch CAD. Normal Left ventricular function. LAD 40% stenosis proximal segment. Left Circumflex 30% stenosis of mid vessel and 60 % stenosis of 1st obtuse marginal artery). Recommendations are to continue coumadin 5mg POQD, crestor 5mg POQD, Norvasc 5mg POQD. primary family law specialist DR. Hardy and Dr. Jackeline Fitzpatrick as well as Circular Clerk for stress test and cardiology follow up, rheumatology to work up ankylosing spondlyosis, and corporate driver to reassess pulmonary function. Chief Complaint (Nursing): Shortness Of Breath History Per: Patient History/Exam Limitations: no limitations Onset/Duration Of Symptoms: Hrs Current Symptoms Are (Timing): Still Present Associated Symptoms: Fever, Nausea, Vomiting, Diarrhea. denies: Cough Severity: Moderate Past Medical History Reviewed: Historical Data, Nursing Documentation, Vital Signs Vital Signs: Last Vital Signs Temp 99.3 F 03/28/17 13:34 Pulse 57 L 03/28/17 13:34 Resp 16 03/28/17 13:34 BP 104/58 L 03/28/17 13:34 Pulse Ox 97 03/28/17 13:34 - Medical History PMH: Arthritis, Deep Vein Thrombosis, Gall Bladder Disease, HTN, Hypercholesterolemia, Peripheral Edema Surgical History: Cholecystectomy, Endoscopy - [facility] Procedures DILATION OF INFERIOR VENA CAVA, PERCUTANEOUS APPROACH (09/08/15) DILATION OF LEFT COMMON ILIAC VEIN, PERCUTANEOUS APPROACH (09/08/15) FLUOROSCOPY BI LOW EXTREM VEIN W OTH CONTRAST, GUIDANCE (09/08/15) INTRODUCE OTH THROMBOLYTIC IN PERIPH VEIN, PERC (09/08/15) REMOVAL OF INFUSION DEVICE FROM LOWER VEIN, PERC APPROACH (09/08/15) ULTRASONOGRAPHY OF BI LOW EXTREM VEIN, INTRAVASC (09/08/15) Family History: States: No Known Family Hx - Social History Hx Alcohol Use: Yes (SOCIALLY) Hx Substance Use: No - Immunization History Hx Tetanus Toxoid Vaccination: No Hx Influenza Vaccination: Yes Hx Pneumococcal Vaccination: Yes Review Of Systems Except As Marked, All Systems Reviewed And Found Negative. Constitutional: Positive for: Fever. Negative for: Chills Respiratory: Negative for: Cough Gastrointestinal: Positive for: Nausea, Vomiting, Diarrhea. Negative for: Abdominal Pain Musculoskeletal: Positive for: Back Pain Physical Exam - Physical Exam Appears: Non-toxic, Other (mild distress) Skin: Normal Color, Warm Head: Atraumatic, Normacephalic Eye(s): bilateral: Normal Inspection, PERRL Cardiovascular: Rhythm Regular (regular rate and rhythm) Respiratory: Normal Breath Sounds, No Accessory Muscle Use, No Rales, No Rhonchi , No Wheezing, Other (No tachypnea, no retraction) Gastrointestinal/Abdominal: Normal Exam, Soft, Tenderness (B/L LQ Tenderness), No Guarding, No Rebound, Other (no edema) Neurological/Psych: Oriented x3, Normal Speech, Normal Cognition, Normal Motor, Normal Sensation ED Course And Treatment - Laboratory Results Result Diagrams: 03/28/17 10:31 03/28/17 10:31 ECG: Interpreted By Me, Viewed By Me, Discussed With Circular Clerk ECG Rhythm: Sinus Rhythm Rate From EC O2 Sat by Pulse Oximetry: 95 (RA") Pulse Ox Interpretation: Normal Progress - Re-Evaluation Re-evaluation Note: 03/28/17 13:51 APPEARS COMFORTABLE NAD. PAIN RESOLVED. VSS. - Data Reviewed Data Reviewed: Lab, Diagnostic imaging, EKG, Old records Medical Decision Making Medical Decision Making: Plan: --CXR --ECG --Labs Disposition Counseled Patient/Family Regarding: Studies Performed, Diagnosis, Need For Followup, Rx Given - Disposition Referrals: YOUR,PMD [Other] Disposition: HOME/ ROUTINE Disposition Time: 13:51 Condition: IMPROVED Prescriptions: Azithromycin 1 tab PO DAILY #4 tab Benzonatate [Tessalon Perles] 200 mg PO TID PRN #15 sgl PRN Reason: Cough Ibuprofen [Motrin] 400 mg PO QID #30 tab Oseltamivir [Tamiflu] 75 mg PO BID #10 cap Instructions: Influenza (ED), Upper Respiratory Infection (ED) Forms: [facility] (French) - Clinical Impression Clinical Impression: Influenza-like illness, Upper respiratory infection - Scribe Statement The provider has reviewed the documentation as recorded by the Radha Roblero Provider Attestation: All medical record entries made by the Ikeribedison were at my direction and personally dictated by me. I have reviewed the chart and agree that the record accurately reflects my personal performance of the history, physical exam, medical decision making, and the department course for this patient. I have also personally directed, reviewed, and agree with the discharge instructions and disposition.
[2017-03-28 10:35] LABS: BASO % 0.4 % (0.0-2.0); EOS % 0.4 % (0.0-4.0); HEMOGLOBIN 14.3 g/dL (12.0-18.0); LYMPH # 0.8 K/uL (1.0-4.3); LYMPH % 8.8 % (20.0-40.0); MEAN CELL VOLUME 87.5 fL (80.0-94.0); MEAN CORPUSCULAR HEMOGLOBIN 29.1 pg (27.0-31.0); MEAN CORPUSCULAR HGB CONC 33.3 g/dL (33.0-37.0); MEAN PLATELET VOLUME 7.9 fL (7.2-11.7); MONO # 0.6 K/uL (0.0-0.8); MONO % 6.6 % (0.0-10.0); NEUT # 7.9 K/uL (1.8-7.0); NEUT % 83.8 % (50.0-75.0); PLATELET COUNT 150 K/uL (130-400); RED CELL DISTRIBUTION WIDTH 14.7 % (11.5-14.5); WHITE BLOOD COUNT 9.4 K/uL (4.8-10.8)
[2017-03-28 10:43] LABS: INR 2.7
--- NOTE | 2017-03-28 10:43 | RAD ---
HISTORY: Sepsis Patient COMPARISON: Chest x-ray performed 02/15/17 TECHNIQUE: Chest, one view. FINDINGS: LUNGS: No focal consolidation. Please note that chest x-ray has limited sensitivity for the detection of pulmonary masses. PLEURA: No significant pleural effusion identified. No definite pneumothorax . CARDIOVASCULAR: Cardiomegaly. Atherosclerotic calcifications of the aorta. OSSEOUS STRUCTURES: Degenerative changes. VISUALIZED UPPER ABDOMEN: Unremarkable. OTHER FINDINGS: None. IMPRESSION: No acute findings. See above.
[2017-03-28 10:49] LABS: ALB/GLOB RATIO 1.2 (1.0-2.1); ALBUMIN 3.9 g/dL (3.5-5.0); CALCIUM 7.9 mg/dl (8.6-10.4); MAGNESIUM 1.5 mg/dL (1.6-2.3)
[2017-03-28 10:50] LABS: PROTHROMBIN TIME 32.1 SECONDS (9.7-12.2)
[2017-03-28 11:04] LABS: BANDS 1 % (0-2); LYMPHOCYTE 3 % (20-40); MONOCYTE 5 % (0-10); NEUTROPHIL 91 % (50-75); TOTAL CELLS COUNTED 100
[2017-03-28 11:05] LABS: PLATELET ESTIMATE NORMAL (NORMAL)
[2017-03-28 11:11] LABS: VENOUS BLOOD GAS BASE EXCESS -2.7 mmol/L (0.0-2.0); VENOUS BLOOD GAS PCO2 31 mmHg (40-60); VENOUS BLOOD GAS PO2 60 mm/Hg (30-55); VENOUS BLOOD PH 7.43 (7.32-7.43)
[2017-03-28 11:42] LABS: URINE BILIRUBIN NEGATIVE (NEGATIVE); URINE BLOOD 1+ (NEGATIVE); URINE CLARITY Clear (Clear); URINE COLOR Yellow (YELLOW); URINE GLUCOSE (UA) NORMAL (Normal); URINE LEUKOCYTE ESTERASE NEG Leu/uL (Negative); URINE NITRATE NEGATIVE (NEGATIVE); URINE PROTEIN 1+ mg/dL (NEGATIVE); URINE UROBILINOGEN NORMAL mg/dL (0.2-1.0)
[2017-03-28 13:35] VITALS: RESP 16; TEMP 99.3
[2017-03-28 14:13] VITALS: BP 103/48; PULSE 70; O2SAT 96
== END 2017-03-28 14:20 | disposition home or self-care (01) ==
LOC: C.ER 09:07
DX: J11.1 Influenza due to unidentified influenza virus with other respiratory manifestations (principal)

== ENCOUNTER 2017-09-23 13:46 | Emergency (ER) | payer MEDICARE, OTHER ==
[2017-09-23 13:46] VITALS: BMI 29.0
[2017-09-23 14:20] VITALS: TEMP 98.2; O2SAT 96
[2017-09-23] MEDS ORDERED: Sodium Chloride 0.9% 500 ML IV ONE (15:48)
[2017-09-23 16:01] LABS: BASO % 0.5 % (0.0-2.0); EOS # 0.2 K/uL (0.0-0.7); EOS % 3.6 % (0.0-4.0); HEMOGLOBIN 14.6 g/dL (12.0-18.0); LYMPH # 1.2 K/uL (1.0-4.3); LYMPH % 23.7 % (20.0-40.0); MEAN CELL VOLUME 87.9 fL (80.0-94.0); MEAN CORPUSCULAR HEMOGLOBIN 29.7 pg (27.0-31.0); MEAN CORPUSCULAR HGB CONC 33.8 g/dL (33.0-37.0); MEAN PLATELET VOLUME 8.3 fL (7.2-11.7); MONO # 0.6 K/uL (0.0-0.8); MONO % 11.2 % (0.0-10.0); NEUT # 3.2 K/uL (1.8-7.0); RBC 4.91 Mil/uL (4.40-5.90); RED CELL DISTRIBUTION WIDTH 14.8 % (11.5-14.5); WHITE BLOOD COUNT 5.2 K/uL (4.8-10.8)
[2017-09-23] MEDS ORDERED: Sodium Chloride 0.9% 1,000 ML ONE (16:02)
[2017-09-23 16:17] LABS: ALB/GLOB RATIO 1.7 (1.0-2.1); ALBUMIN 4.3 g/dL (3.5-5.0); ALT/SGPT 18 U/L (21-72); AST/SGOT 21 U/L (17-59); BLOOD UREA NITROGEN 23 mg/dL (9-20); CALCIUM 9.2 mg/dl (8.6-10.4); GFR AFRICAN-AMERICAN > 60; GFR NON-AFRICAN AMERICAN > 60; LIPASE 84 U/L (23-300)
[2017-09-23 16:18] LABS: URINE BACTERIA RARE (<OCC); URINE BILIRUBIN NEGATIVE (NEGATIVE); URINE BLOOD 1+ (NEGATIVE); URINE CLARITY Clear (Clear); URINE COLOR Yellow (YELLOW); URINE GLUCOSE (UA) 1+ mg/dL (Normal); URINE LEUKOCYTE ESTERASE NEG Leu/uL (Negative); URINE PROTEIN NEGATIVE (NEGATIVE)
[2017-09-23 16:19] LABS: INR 3.4
[2017-09-23 16:28] LABS: PROTHROMBIN TIME 36.9 SECONDS (9.7-12.2)
--- NOTE | 2017-09-23 16:38 | C.PDOC ---
History Of Present Illness 81 y/o male presents to the ER complaining of abdominal pain which has been present for the past 5 days. Patient states that the pain is worse in the epigastric region and he has "too much acid." Patient reports that he saw his PMD and he took Omeprazole without relief. Denies having fever, chills, and other complaints at this time. Of note, patient has remote history of cholecystectomy. Time Seen by Provider: 09/23/17 15:36 Chief Complaint (Nursing): Abdominal Pain History Per: Patient History/Exam Limitations: no limitations Onset/Duration Of Symptoms: Days Current Symptoms Are (Timing): Still Present Severity: Moderate Past Medical History Reviewed: Historical Data, Nursing Documentation, Vital Signs Vital Signs: Last Vital Signs Temp 98.2 F 09/23/17 18:36 Pulse 86 09/23/17 18:36 Resp 18 09/23/17 18:36 BP 139/69 09/23/17 18:36 Pulse Ox 96 09/23/17 18:53 - Medical History PMH: Arthritis, Deep Vein Thrombosis, Gall Bladder Disease, HTN, Hypercholesterolemia, Peripheral Edema Surgical History: Cholecystectomy, Endoscopy - [facility] Procedures DILATION OF INFERIOR VENA CAVA, PERCUTANEOUS APPROACH (09/08/15) DILATION OF LEFT COMMON ILIAC VEIN, PERCUTANEOUS APPROACH (09/08/15) FLUOROSCOPY BI LOW EXTREM VEIN W OTH CONTRAST, GUIDANCE (09/08/15) INTRODUCE OTH THROMBOLYTIC IN PERIPH VEIN, PERC (09/08/15) REMOVAL OF INFUSION DEVICE FROM LOWER VEIN, PERC APPROACH (09/08/15) ULTRASONOGRAPHY OF BI LOW EXTREM VEIN, INTRAVASC (09/08/15) Family History: States: No Known Family Hx - Social History Hx Alcohol Use: Yes (SOCIALLY) Hx Substance Use: No - Immunization History Hx Tetanus Toxoid Vaccination: No Hx Influenza Vaccination: Yes Hx Pneumococcal Vaccination: Yes Review Of Systems Except As Marked, All Systems Reviewed And Found Negative. Constitutional: Negative for: Fever, Chills Gastrointestinal: Positive for: Abdominal Pain. Negative for: Nausea, Vomiting , Diarrhea Physical Exam - Physical Exam Appears: Non-toxic, No Acute Distress Skin: Normal Color, Warm, Dry Head: Atraumatic, Normacephalic Eye(s): bilateral: Normal Inspection Nose: Normal Oral Mucosa: Moist Neck: Supple Chest: Symmetrical Cardiovascular: Rhythm Regular Respiratory: Normal Breath Sounds, No Rales, No Rhonchi, No Wheezing Gastrointestinal/Abdominal: Soft, Tenderness (epigastric tenderness), No Guarding, No Rebound Neurological/Psych: Oriented x3, Normal Speech ED Course And Treatment - Laboratory Results Result Diagrams: 09/23/17 15:55 09/23/17 15:55 O2 Sat by Pulse Oximetry: 96 (RA) Pulse Ox Interpretation: Normal - CT Scan/US CT- Abd & Pelv. Other Rad Studies (CT/US): Read By Radiologist, Radiology Report Reviewed CT/US Interpretation: Date of service: 09/23/2017. PROCEDURE: CT Abdomen and Pelvis with contrast. HISTORY: Upper abdominal pain. COMPARISON: None. TECHNIQUE: Contrast dose: 100 cc Visipaque 320. Radiation dose: Total exam DLP = 732.61 mGy-cm. This CT exam was performed using one or more of the following dose reduction techniques: Automated exposure control, adjustment of the mA and/or kV according to patient size, and/or use of iterative reconstruction technique. FINDINGS: LOWER THORAX: Unremarkable. LIVER: Unremarkable. No gross lesion or ductal dilatation. GALLBLADDER AND BILE DUCTS : Status post cholecystectomy. No abnormality is seen in the gallbladder fossa. PANCREAS: Unremarkable. No gross lesion or ductal dilatation. SPLEEN: Unremarkable. ADRENALS: Unremarkable. No mass. KIDNEYS AND URETERS: Unremarkable. No hydronephrosis. No solid mass. VASCULATURE: Unremarkable. No aortic aneurysm. IVC filter identified. BOWEL: The stomach is collapsed accentuating mucosal fold thickness. The findings are nonspecific but can be seen in diffuse gastritis. No focal gastric abnormalities identified. She. APPENDIX: Normal appendix. PERITONEUM: Unremarkable. No free fluid. No free air. LYMPH NODES: Unremarkable. No enlarged lymph nodes. BLADDER: Unremarkable. REPRODUCTIVE: Enlarged prostate, variable attenuation features which are nonspecific, can be seen with intra prostatic hemorrhage. Surgical clips interposed between the prostate and anterior wall of the rectum including at least 1 clip in the rectum likely from prior biopsy. BONES: No acute fracture. Non marginal osteophyte formation and findings in the sacroiliac joints consistent with ankylosing spondylitis. Grade 1 anterolisthesis L5-S1 with associated pars defects. Canal stenosis also identified at this level. OTHER FINDINGS: None. IMPRESSION: Gastric wall thickening most likely due to nondistended gastric state. However gastritis can assume this appearance. There are no focal gastric abnormalities. The small and large bowel are unremarkable. Additional benign and/or incidental findings described above. Medical Decision Making Medical Decision Making: suspect gastritis vs pancreatits vs pud. Plan: --Labs --UA --CT - Abd & Pelv. --Protonix IV --Zofran IV --IV Fluids labs neg. ct neg. pain resolved. advise output fu. notified of inr with section housekeeper advise to hold one dose and discuss with pmd. Disposition - Disposition Disposition: HOME/ ROUTINE Disposition Time: 06:00 Condition: STABLE Additional Instructions: please follow up with your doctor. return to er with worsening symptoms or concerns. Prescriptions: Famotidine [Pepcid] 20 mg PO DAILY #20 tab Instructions: Acute Abdomen (Belly Pain) Forms: [employer] (Finnish) - Clinical Impression Clinical Impression: Abdominal pain, Supratherapeutic INR - Scribe Statement The provider has reviewed the documentation as recorded by the Radha Roblero Provider Attestation: All medical record entries made by the Ikeribedison were at my direction and personally dictated by me. I have reviewed the chart and agree that the record accurately reflects my personal performance of the history, physical exam, medical decision making, and the department course for this patient. I have also personally directed, reviewed, and agree with the discharge instructions and disposition.
[2017-09-23] MEDS ORDERED: Iodixanol 320 MG/ML 100 ML BOTTLE IV ONE (16:51)
--- NOTE | 2017-09-23 17:34 | CT ---
Date of service: 09/23/2017 PROCEDURE: CT Abdomen and Pelvis with contrast HISTORY: Upper abdominal pain. COMPARISON: None. TECHNIQUE: Contrast dose: 100 cc Visipaque 320. Radiation dose: Total exam DLP = 732.61 mGy-cm. This CT exam was performed using one or more of the following dose reduction techniques: Automated exposure control, adjustment of the mA and/or kV according to patient size, and/or use of iterative reconstruction technique. FINDINGS: LOWER THORAX: Unremarkable. LIVER: Unremarkable. No gross lesion or ductal dilatation. GALLBLADDER AND BILE DUCTS: Status post cholecystectomy. No abnormality is seen in the gallbladder fossa. PANCREAS: Unremarkable. No gross lesion or ductal dilatation. SPLEEN: Unremarkable. ADRENALS: Unremarkable. No mass. KIDNEYS AND URETERS: Unremarkable. No hydronephrosis. No solid mass. VASCULATURE: Unremarkable. No aortic aneurysm. IVC filter identified. BOWEL: The stomach is collapsed accentuating mucosal fold thickness. The findings are nonspecific but can be seen in diffuse gastritis. No focal gastric abnormalities identified. She APPENDIX: Normal appendix. PERITONEUM: Unremarkable. No free fluid. No free air. LYMPH NODES: Unremarkable. No enlarged lymph nodes. BLADDER: Unremarkable. REPRODUCTIVE: Enlarged prostate, variable attenuation features which are nonspecific, can be seen with intra prostatic hemorrhage. Surgical clips interposed between the prostate and anterior wall of the rectum including at least 1 clip in the rectum likely from prior biopsy. BONES: No acute fracture. Non marginal osteophyte formation and findings in the sacroiliac joints consistent with ankylosing spondylitis. Grade 1 anterolisthesis L5-S1 with associated pars defects. Canal stenosis also identified at this level. OTHER FINDINGS: None. IMPRESSION: Gastric wall thickening most likely due to nondistended gastric state. However gastritis can assume this appearance. There are no focal gastric abnormalities. The small and large bowel are unremarkable. Additional benign and/or incidental findings described above.
[2017-09-23 18:41] VITALS: BP 139/69; PULSE 86; RESP 18
== END 2017-09-23 18:41 | disposition home or self-care (01) ==
LOC: C.ER 13:46
DX: R10.9 Unspecified abdominal pain (principal); R79.1 Abnormal coagulation profile; I10 Essential (primary) hypertension; E78.00 Pure hypercholesterolemia, unspecified; Z86.718 Personal history of other venous thrombosis and embolism
CPT/HCPCS: 74177; 80053; 81001; 83690; 84484; 85025; 85610; 85730; 96374; 96375; 99284; C9113; J2405; J7040; Q9967

== ENCOUNTER 2017-11-13 11:51 | Emergency (ER) | payer MEDICARE, OTHER ==
[2017-11-13 11:51] VITALS: BMI 29.0
[2017-11-13 12:03] VITALS: O2SAT 97
--- NOTE | 2017-11-13 12:31 | C.PDOC ---
History Of Present Illness 82 year old male presents to the ED complaining of right lower extremity pain and swelling. Patient states he was his PMD Dr. Fitzpatrick for similar complaint, who did nothing. Swelling has been present for 3 weeks, and the pain developed this week. Otherwise he denies any chest pain, SOB, fevers, or chills. Time Seen by Provider: 11/13/17 11:57 Chief Complaint (Nursing): Lower Extremity Problem/Injury History Per: Patient History/Exam Limitations: no limitations Onset/Duration Of Symptoms: Days Current Symptoms Are (Timing): Still Present Past Medical History Reviewed: Historical Data, Nursing Documentation, Vital Signs Vital Signs: Last Vital Signs Temp 98.8 F 11/13/17 14:18 Pulse 64 11/13/17 14:18 Resp 16 11/13/17 14:18 BP 116/58 L 11/13/17 14:18 Pulse Ox 97 11/13/17 14:18 - Medical History PMH: Arthritis, Deep Vein Thrombosis, Gall Bladder Disease, HTN, Hypercholesterolemia, Peripheral Edema Surgical History: Cholecystectomy, Endoscopy - [facility] Procedures DILATION OF INFERIOR VENA CAVA, PERCUTANEOUS APPROACH (09/08/15) DILATION OF LEFT COMMON ILIAC VEIN, PERCUTANEOUS APPROACH (09/08/15) FLUOROSCOPY BI LOW EXTREM VEIN W OTH CONTRAST, GUIDANCE (09/08/15) INTRODUCE OTH THROMBOLYTIC IN PERIPH VEIN, PERC (09/08/15) REMOVAL OF INFUSION DEVICE FROM LOWER VEIN, PERC APPROACH (09/08/15) ULTRASONOGRAPHY OF BI LOW EXTREM VEIN, INTRAVASC (09/08/15) Family History: States: Unknown Family Hx - Social History Hx Alcohol Use: Yes (SOCIALLY) Hx Substance Use: No - Immunization History Hx Tetanus Toxoid Vaccination: No Hx Influenza Vaccination: Yes Hx Pneumococcal Vaccination: Yes Review Of Systems Except As Marked, All Systems Reviewed And Found Negative. Constitutional: Negative for: Fever, Chills Cardiovascular: Negative for: Chest Pain Respiratory: Negative for: Shortness of Breath Musculoskeletal: Positive for: Leg Pain (and swelling) Neurological: Negative for: Weakness, Numbness, Incoordination Physical Exam - Physical Exam Appears: Non-toxic, No Acute Distress Skin: Warm, Dry Head: Atraumatic, Normacephalic Eye(s): bilateral: Normal Inspection, PERRL, EOMI Nose: Normal Oral Mucosa: Moist Neck: Supple Chest: Symmetrical Cardiovascular: Rhythm Regular, No Murmur Respiratory: Normal Breath Sounds, No Rales, No Rhonchi, No Wheezing Gastrointestinal/Abdominal: Soft, No Tenderness, No Distention Extremity: Normal ROM, Capillary Refill (less than 2 sec), Swelling (Slight edema to bilateral lower legs, right > left), Other (Venous stasis dermatitis to bilateral lower extremities) Pulses: Left Dorsalis Pedis: Normal, Right Dorsalis Pedis: Normal Neurological/Psych: Oriented x3, Normal Speech, Normal Motor, Normal Sensation ED Course And Treatment - Laboratory Results Result Diagrams: 11/13/17 13:19 11/13/17 13:19 O2 Sat by Pulse Oximetry: 97 (RA) Pulse Ox Interpretation: Normal Medical Decision Making Medical Decision Making: Impression: Bilateral LE swelling Initial Plan: --Blood work --Doppler US of bilateral lower extremity veins Labs reviewed. Doppler ultrasound reviewed, negative for DVT bilaterally. Disposition Counseled Patient/Family Regarding: Studies Performed, Diagnosis, Need For Followup - Disposition Referrals: Maximino Fitzpatrick MD [Staff Provider] - Disposition: HOME/ ROUTINE Disposition Time: 15:00 Condition: STABLE Additional Instructions: Follow up with PMD for further evaluation Instructions: Nocturnal (Nighttime) Leg Cramps Forms: [employer] (Dominican) Print Language: TAJIK - POA Present On Arrival: None - Clinical Impression Clinical Impression: History of DVT (deep vein thrombosis) - PA / HISTORIC SITE ADMINISTRATOR / Resident Statement MD/DO has reviewed & agrees with the documentation as recorded. - Scribe Statement The provider has reviewed the documentation as recorded by the Scribe (Rose Isaac) All medical record entries made by the Scribe were at my direction and personally dictated by me. I have reviewed the chart and agree that the record accurately reflects my personal performance of the history, physical exam, medical decision making, and the department course for this patient. I have also personally directed, reviewed, and agree with the discharge instructions and disposition.
[2017-11-13 13:41] LABS: BASO % 0.6 % (0.0-2.0); EOS % 0.1 % (0.0-4.0); LYMPH # 0.6 K/uL (1.0-4.3); LYMPH % 21.5 % (20.0-40.0); MEAN CORPUSCULAR HEMOGLOBIN 28.7 pg (27.0-31.0); MEAN CORPUSCULAR HGB CONC 33.6 g/dL (33.0-37.0); MEAN PLATELET VOLUME 8.2 fL (7.2-11.7); MONO # 0.3 K/uL (0.0-0.8); MONO % 11.8 % (0.0-10.0); NEUT # 1.8 K/uL (1.8-7.0); NRBC % 0.2 % (0.0-2.0); RBC 4.87 Mil/uL (4.40-5.90); RED CELL DISTRIBUTION WIDTH 14.9 % (11.5-14.5)
[2017-11-13 13:43] LABS: WHITE BLOOD COUNT 2.8 K/uL (4.8-10.8)
[2017-11-13 13:44] LABS: ALB/GLOB RATIO 1.3 (1.0-2.1); ALBUMIN 3.8 g/dL (3.5-5.0); ALT/SGPT 36 U/L (21-72); AST/SGOT 50 U/L (17-59); BLOOD UREA NITROGEN 21 mg/dL (9-20); CALCIUM 8.6 mg/dl (8.6-10.4); GFR NON-AFRICAN AMERICAN 53; MEAN CELL VOLUME 85.5 fL (80.0-94.0)
[2017-11-13 14:18] VITALS: BP 116/58; PULSE 64; RESP 16; TEMP 98.8
--- NOTE | 2017-11-13 14:36 | VASCLAB ---
Date of service: 11/13/2017 PROCEDURE: Lower Extremity Venous Duplex Exam. HISTORY: Edema PRIORS: 02/16/2017. TECHNIQUE: Bilateral common femoral, femoral, popliteal and posterior tibial, peroneal and great saphenous veins were evaluated. Flow was assessed with color Doppler, compressibility, assessment of phasic flow and augmentation response. Report prepared by MANUELA Castro FINDINGS: RIGHT: 1. Common Femoral Vein: 1.1. Compressibility - Fully compressible: Thrombus - None : Flow - Phasic: Augmentation -Normal: Reflux - None. 2. Femoral Vein: 2.1. Compressibility - Partial: Thrombus - Chronic : Flow - Reduced : Augmentation -Normal: Reflux - None. 3. Popliteal Vein: 3.1. Compressibility - Partial: Thrombus - Chronic : Flow - Phasic: Augmentation -Normal: Reflux - Moderate >3.60s 4. Posterior Tibial Vein: 4.1. Compressibility - Fully compressible: Thrombus - None: Flow - Phasic: Augmentation -Normal: Reflux - None. 5. Peroneal Vein: 5.1. Compressibility - Fully compressible: Thrombus - None: Flow - Phasic: Augmentation -Normal: Reflux - None. 6. Great Saphenous Vein: 6.1. Compressibility - Fully compressible: Thrombus - None: Flow - Phasic: Augmentation - Normal: Reflux - Mild 1.90s LEFT: 1. Common Femoral Vein: 1.1. Compressibility - Fully compressible: Thrombus - None: Flow - Phasic: Augmentation -Normal: Reflux - None. 2. Femoral Vein: 2.1. Compressibility - Fully compressible: Thrombus - None: Flow - Phasic: Augmentation -Normal: Reflux - Moderate 3.45s 3. Popliteal Vein: 3.1. Compressibility - Partial: Thrombus - Chronic : Flow - Phasic: Augmentation -Normal: Reflux - Moderate 3.42s 4. Posterior Tibial Vein: 4.1. Compressibility - Fully compressible: Thrombus - None: Flow - Phasic: Augmentation -Normal: Reflux - Severe >4.04s 5. Peroneal Vein: 5.1. Compressibility - Fully compressible: Thrombus - None: Flow - Phasic: Augmentation -Normal: Reflux - Severe. 6. Great Saphenous Vein: 6.1. Compressibility - Fully compressible: Thrombus - None: Flow - Phasic: Augmentation - Normal: Reflux - Mild 1.30s OTHER FINDINGS: Incidental findings: Distal posterior tibial, peroneal, anterior tibial and dorsalis pedis arteries, appeared patent bilaterally. IMPRESSION: Right: Partial chronic thrombus formation noted in the right femoral and popliteal veins. 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 Left: Wall thickening noted of the left femoral vein. Partial chronic thrombus formation noted of the left popliteal vein. Valvular incompetence noted of the left femoral, popliteal, posterior tibial, peroneal and great saphenous veins.
== END 2017-11-13 15:25 | disposition home or self-care (01) ==
LOC: C.ER 11:51
DX: I82.401 Acute embolism and thrombosis of unspecified deep veins of right lower extremity (principal)

== ENCOUNTER 2018-06-20 15:27 | Emergency (ER) | payer MEDICARE, OTHER ==
[2018-06-20 15:28] VITALS: BMI 29.0
[2018-06-20 17:19] LABS: BASO # 0.1 K/uL (0.0-0.2); BASO % 0.9 % (0.0-2.0); EOS # 0.2 K/uL (0.0-0.7); EOS % 3.3 % (0.0-4.0); HEMOGLOBIN 14.6 g/dL (12.0-18.0); LYMPH # 1.5 K/uL (1.0-4.3); LYMPH % 24.5 % (20.0-40.0); MEAN CORPUSCULAR HEMOGLOBIN 29.5 pg (27.0-31.0); MEAN CORPUSCULAR HGB CONC 32.8 g/dL (33.0-37.0); MEAN PLATELET VOLUME 8.2 fL (7.2-11.7); MONO # 0.5 K/uL (0.0-0.8); MONO % 7.9 % (0.0-10.0); NEUT # 3.9 K/uL (1.8-7.0); NEUT % 63.4 % (50.0-75.0); NRBC % 0.1 % (0.0-2.0); RBC 4.94 Mil/uL (4.40-5.90); RED CELL DISTRIBUTION WIDTH 15.5 % (11.5-14.5); WHITE BLOOD COUNT 6.2 K/uL (4.8-10.8)
[2018-06-20 17:21] LABS: MEAN CELL VOLUME 89.8 fL (80.0-94.0)
[2018-06-20 17:25] LABS: SQUAMOUS EPITHIAL < 1 /hpf (0-5); URINE BILIRUBIN NEGATIVE (NEGATIVE); URINE BLOOD 2+ (NEGATIVE); URINE CLARITY Hazy (Clear); URINE COLOR Yellow (YELLOW); URINE GLUCOSE (UA) NORMAL (Normal); URINE LEUKOCYTE ESTERASE NEG Leu/uL (Negative); URINE PROTEIN 2+ mg/dL (NEGATIVE); URINE UROBILINOGEN NORMAL mg/dL (0.2-1.0)
[2018-06-20 17:37] LABS: ALB/GLOB RATIO 1.6 (1.0-2.1); ALBUMIN 4.1 g/dL (3.5-5.0); ALT/SGPT 16 U/L (21-72); AST/SGOT 24 U/L (17-59); BLOOD UREA NITROGEN 15 mg/dL (9-20); CALCIUM 8.8 mg/dl (8.6-10.4); GFR NON-AFRICAN AMERICAN > 60; LIPASE 42 U/L (23-300)
[2018-06-20] MEDS ORDERED: Iohexol 240 (50 ml) PO STA (17:49)
[2018-06-20] MEDS ORDERED: Iohexol 240 (50 ml) ONE (18:10)
--- NOTE | 2018-06-20 18:26 | C.PDOC ---
History Of Present Illness 82 year old male presents to the ED for evauation of abdominal pain which began approx 6 days ago. Patient reports experiencing some constipation initially. He states he then took some "stomach pills," and began experiencing diarrhea yesterday and today. Patient describes his pain as constant, diffuse and non- radiating. Patient denies similar symptoms in the past. Patient reports surgical history of cholecystectomy and hernia repair (umbilical vs ventral?). He denies fever, chills, nausea, vomiting, chest pain, SOB, dysuria. Time Seen by Provider: 06/20/18 16:26 Chief Complaint (Nursing): Abdominal Pain History Per: Patient History/Exam Limitations: no limitations Onset/Duration Of Symptoms: Days (6) Current Symptoms Are (Timing): Better Severity: Mild Location Of Pain/Discomfort: Diffuse Radiation Of Pain To:: None Quality Of Discomfort: "Pain" Associated Symptoms: Diarrhea, Constipation. denies: Fever, Chills, Nausea, Vomiting Last Bowel Movement: Today Additional History Per: Patient Past Medical History Reviewed: Historical Data, Nursing Documentation, Vital Signs Vital Signs: Last Vital Signs Temp 98.2 F 06/20/18 15:35 Pulse 57 L 06/20/18 15:35 Resp 17 06/20/18 15:35 BP 171/79 H 06/20/18 15:35 Pulse Ox 98 06/20/18 15:35 - Medical History PMH: Arthritis, Deep Vein Thrombosis, Gall Bladder Disease, HTN, Hypercholesterolemia, Peripheral Edema Surgical History: Cholecystectomy, Endoscopy - [facility] Procedures DILATION OF INFERIOR VENA CAVA, PERCUTANEOUS APPROACH (09/08/15) DILATION OF LEFT COMMON ILIAC VEIN, PERCUTANEOUS APPROACH (09/08/15) FLUOROSCOPY BI LOW EXTREM VEIN W OTH CONTRAST, GUIDANCE (09/08/15) INTRODUCE OTH THROMBOLYTIC IN PERIPH VEIN, PERC (09/08/15) REMOVAL OF INFUSION DEVICE FROM LOWER VEIN, PERC APPROACH (09/08/15) ULTRASONOGRAPHY OF BI LOW EXTREM VEIN, INTRAVASC (09/08/15) Family History: States: No Known Family Hx - Social History Hx Alcohol Use: No Hx Substance Use: No - Immunization History Hx Tetanus Toxoid Vaccination: Yes Hx Influenza Vaccination: Yes Hx Pneumococcal Vaccination: Yes Review Of Systems Constitutional: Negative for: Fever, Chills Cardiovascular: Negative for: Chest Pain, Palpitations Respiratory: Negative for: Cough, Shortness of Breath Gastrointestinal: Positive for: Abdominal Pain, Diarrhea, Constipation (initially ). Negative for: Nausea, Vomiting Genitourinary: Negative for: Dysuria, Hematuria Skin: Negative for: Rash Neurological: Negative for: Headache, Dizziness Physical Exam - Physical Exam Appears: Well, Non-toxic, No Acute Distress Skin: Normal Color, Warm, Dry, No Rash Head: Atraumatic, Normacephalic Eye(s): bilateral: Normal Inspection Oral Mucosa: Moist Neck: Supple Cardiovascular: Rhythm Regular Respiratory: Normal Breath Sounds, No Rales, No Rhonchi, No Wheezing Gastrointestinal/Abdominal: Soft, Tenderness (mild, diffuse ), Distention (mild), No Guarding, No Rebound, Other (well-healed surgical scars to right upper quadrant and umbilical areas) Back: No CVA Tenderness Extremity: Normal ROM Neurological/Psych: Oriented x3 ED Course And Treatment - Laboratory Results Result Diagrams: 06/20/18 17:13 06/20/18 17:13 Lab Results: Total Bilirubin 0.6 mg/dL (0.2-1.3) 06/20/18 17:13 AST 24 U/L (17-59) 06/20/18 17:13 ALT 16 U/L (21-72) L D 06/20/18 17:13 Alkaline Phosphatase 67 U/L (38-126) 06/20/18 17:13 Total Protein 6.8 g/dL (6.3-8.3) 06/20/18 17:13 Albumin 4.1 g/dL (3.5-5.0) 06/20/18 17:13 Globulin 2.6 gm/dL (2.2-3.9) 06/20/18 17:13 Albumin/Globulin Ratio 1.6 (1.0-2.1) 06/20/18 17:13 Lipase 42 U/L (23-300) 06/20/18 17:13 Urine Color Yellow (YELLOW) 06/20/18 17:13 Urine Clarity Hazy (Clear) 06/20/18 17:13 Urine pH 5.0 (5.0-8.0) 06/20/18 17:13 Ur Specific [place] 1.018 (1.003-1.030) 06/20/18 17:13 Urine Protein 2+ mg/dL (NEGATIVE) H 06/20/18 17:13 Urine Glucose (UA) Normal mg/dL (Normal) 06/20/18 17:13 Urine Ketones Negative mg/dL (NEGATIVE) 06/20/18 17:13 Urine Blood 2+ (NEGATIVE) H 06/20/18 17:13 Urine Nitrate Negative (NEGATIVE) 06/20/18 17:13 Urine Bilirubin Negative (NEGATIVE) 06/20/18 17:13 Urine Urobilinogen Normal mg/dL (0.2-1.0) 06/20/18 17:13 Ur Leukocyte Esterase Neg Bruce/uL (Negative) 06/20/18 17:13 Urine WBC (Auto) 3 /hpf (0-5) 06/20/18 17:13 Urine RBC (Auto) 1 /hpf (0-3) 06/20/18 17:13 Ur Squamous Epith Cells < 1 /hpf (0-5) 06/20/18 17:13 Hyaline Casts 11-20 /lpf (0-2) H 06/20/18 17:13 O2 Sat by Pulse Oximetry: 98 (on RA) Pulse Ox Interpretation: Normal Progress Note: Blood work, UA, CT scan abd/pelvis ordered and reviewed. Disposition - Disposition Disposition Time: 19:00 Condition: STABLE Forms: [employer] (Estonian) - Clinical Impression Clinical Impression: Abdominal pain - Scribe Statement The provider has reviewed the documentation as recorded by the Scribe (Moraima Domingo) Provider Attestation: All medical record entries made by the Scribe were at my direction and personally dictated by me. I have reviewed the chart and agree that the record accurately reflects my personal performance of the history, physical exam, medical decision making, and the department course for this patient. I have also personally directed, reviewed, and agree with the discharge instructions and disposition. Physician Patient Turnover Patient Signed Over To: Nam Pedersen Handoff Comments: pending CT abd/pelvis
[2018-06-20 19:51] VITALS: TEMP 97.9
[2018-06-20] MEDS ORDERED: Iodixanol 320 MG/ML 100 ML BOTTLE IV ONE (20:27)
[2018-06-20 22:20] VITALS: BP 191/75; PULSE 84; RESP 16; O2SAT 100
--- NOTE | 2018-06-20 23:29 | CT ---
Date of service: 06/20/2018 PROCEDURE: CT Abdomen and Pelvis with contrast HISTORY: ABDOMINAL PAIN, CONSTIPATION, S/P TANJA COMPARISON: Comparison is made with 09/23/2017 TECHNIQUE: Contrast dose: 100 mL of Visipaque 320 intravenously. Radiation dose: Total exam DLP = 1110.33 mGy-cm. This CT exam was performed using one or more of the following dose reduction techniques: Automated exposure control, adjustment of the mA and/or kV according to patient size, and/or use of iterative reconstruction technique. FINDINGS: LOWER THORAX: No evidence of acute pathology LIVER: Hepatic steatosis is again noted. Mild central intrahepatic biliary ductal dilatation is again noted. GALLBLADDER AND BILE DUCTS: Status post cholecystectomy. The common bile duct is slightly prominent. PANCREAS: Unremarkable. No gross lesion or ductal dilatation. SPLEEN: Unremarkable. ADRENALS: Unremarkable. No mass. KIDNEYS AND URETERS: Unremarkable. No hydronephrosis. No solid mass. VASCULATURE: Unremarkable. No aortic aneurysm. Diffuse atherosclerotic calcification is noted. There is IVC filter in place. BOWEL: Diffuse thickening of the stomach and duodenum is noted suggestive of gastroduodenitis. No evidence of high-grade bowel obstruction. Colonic diverticulosis seen without evidence of diverticulitis. APPENDIX: No evidence of appendicitis. PERITONEUM: Unremarkable. No free fluid. No free air. LYMPH NODES: Unremarkable. No enlarged lymph nodes. BLADDER: Diffuse urinary bladder wall thickening is noted. REPRODUCTIVE: Moderately to markedly enlarged prostate is again noted. BONES: Again noted is sclerotic bony changes in the left posterior iliac bone adjacent to the sacroiliac joint. There is severe degenerative changes and grade 1 anterior spondylolisthesis of L5 relative to S1 again noted. OTHER FINDINGS: None. IMPRESSION: Gastric and duodenal wall thickening suspicious for gastroenteritis. Otherwise no significant interval changes noted compared to the prior study dated 09/23/2017 Preliminary report was submitted by [facility] contains concordant findings.
== END 2018-06-20 23:10 | disposition home or self-care (01) ==
LOC: C.ER 15:27
DX: K29.80 Duodenitis without bleeding (principal)
CPT/HCPCS: 74177; 80053; 81001; 83690; 85025; 99284; Q9966; Q9967

== ENCOUNTER 2018-06-21 10:49 | Emergency (ER) | payer MEDICARE ==
[2018-06-21 10:50] VITALS: BMI 29.0
== END 2018-06-21 11:05 | disposition left against medical advice (07) ==
LOC: C.ER 10:49
DX: Z02.89 Encounter for other administrative examinations (principal)

== ENCOUNTER 2018-06-30 12:39 | Observation (INO) | payer MEDICARE ==
[2018-06-30 12:39] VITALS: BMI 29.0
--- NOTE | 2018-06-30 13:41 | C.PDOC ---
History Of Present Illness Patient is an 82 year old male with pmhx of HTN, DM2 to presents to ED with complaints of abdominal pain and 3-4 episodes of loose watery stools daily for 10+ days. Patient reports he initially presented to the ED with similar comp laints on 06/20(dx with gastroenteritis on CT) and was discharged home with antibiotics with which he reports compliance. Patient reports abdominal discomfort, distension and diarrhea have not improved since his initial visit. Patient followed up with his PMD who instructed he return to ED. Patient reports dizziness from excessive fluid loss, worsening RLE edema/pain~2 months, nausea and failure to pass flatus; denies syncopal episode, cough, vomiting, hematochezia/melena, urinary changes. <Salena Barker - Last Filed: 06/30/18 16:51> <Zakia Vega - Last Filed: 06/30/18 16:20> History Per: Patient History/Exam Limitations: no limitations Onset/Duration Of Symptoms: Days Current Symptoms Are (Timing): Still Present Seizure Or Post-ictal Symptoms: None Possible Causative Factor(s): Other (frequent watery BMs) Fall Associated With With Symptoms: No - Symptoms Of CVA Current Coumadin Use?: Yes <Salena Barker - Last Filed: 06/30/18 16:51> Chief Complaint (Nursing): Dizziness/Lightheaded Past Medical History Vital Signs: Last Vital Signs Temp 98.2 F 06/30/18 13:01 Pulse 78 06/30/18 13:01 Resp 17 06/30/18 13:01 BP 168/70 H 06/30/18 13:01 Pulse Ox 98 06/30/18 13:54 - [facility] Procedures DILATION OF INFERIOR VENA CAVA, PERCUTANEOUS APPROACH (09/08/15) DILATION OF LEFT COMMON ILIAC VEIN, PERCUTANEOUS APPROACH (09/08/15) FLUOROSCOPY BI LOW EXTREM VEIN W OTH CONTRAST, GUIDANCE (09/08/15) INTRODUCE OTH THROMBOLYTIC IN PERIPH VEIN, PERC (09/08/15) REMOVAL OF INFUSION DEVICE FROM LOWER VEIN, PERC APPROACH (09/08/15) ULTRASONOGRAPHY OF BI LOW EXTREM VEIN, INTRAVASC (09/08/15) <Zakia Vega - Last Filed: 06/30/18 16:20> Reviewed: Historical Data, Nursing Documentation, Vital Signs Vital Signs: Last Vital Signs Temp 98.2 F 06/30/18 13:01 Pulse 78 06/30/18 13:01 Resp 17 06/30/18 13:01 BP 168/70 H 06/30/18 13:01 Pulse Ox 98 06/30/18 13:01 - Medical History PMH: Arthritis, Deep Vein Thrombosis, Gall Bladder Disease, HTN, Hypercholesterolemia, Peripheral Edema Surgical History: Cholecystectomy, Endoscopy - [facility] Procedures DILATION OF INFERIOR VENA CAVA, PERCUTANEOUS APPROACH (09/08/15) DILATION OF LEFT COMMON ILIAC VEIN, PERCUTANEOUS APPROACH (09/08/15) FLUOROSCOPY BI LOW EXTREM VEIN W OTH CONTRAST, GUIDANCE (09/08/15) INTRODUCE OTH THROMBOLYTIC IN PERIPH VEIN, PERC (09/08/15) REMOVAL OF INFUSION DEVICE FROM LOWER VEIN, PERC APPROACH (09/08/15) ULTRASONOGRAPHY OF BI LOW EXTREM VEIN, INTRAVASC (09/08/15) Family History: States: Unknown Family Hx - Social History Hx Tobacco Use: Yes (former) Hx Alcohol Use: No Hx Substance Use: No - Immunization History Hx Tetanus Toxoid Vaccination: Yes Hx Influenza Vaccination: Yes (2019) Hx Pneumococcal Vaccination: Yes <Salena Barker - Last Filed: 06/30/18 16:51> Review Of Systems Constitutional: Positive for: Sweats Eyes: Negative for: Vision Change Cardiovascular: Negative for: Chest Pain Respiratory: Negative for: Cough, Shortness of Breath Gastrointestinal: Positive for: Nausea, Abdominal Pain, Diarrhea. Negative for: Vomiting, Melena, Hematochezia Genitourinary: Negative for: Dysuria Musculoskeletal: Positive for: Leg Pain (right) <Salena Barker - Last Filed: 06/30/18 16:51> Physical Exam - Physical Exam Appears: Non-toxic, No Acute Distress Skin: Warm, Dry Head: Atraumatic, Normacephalic Eye(s): bilateral: Normal Inspection, EOMI Oral Mucosa: Moist Neck: Normal Cardiovascular: Rhythm Regular, No Murmur Respiratory: Normal Breath Sounds, No Rales, No Rhonchi Gastrointestinal/Abdominal: Normal Exam, Bowel Sounds, Soft, No Tenderness, No Mass, Distention, No Rebound Extremity: Tenderness (right lateral malleolus), No Calf Tenderness, Swelling (3+), Other (stasis dermatitis) Pulses: Left Dorsalis Pedis: Normal, Right Dorsalis Pedis: Normal Neurological/Psych: Oriented x3 <Salena Barker - Last Filed: 06/30/18 16:51> ED Course And Treatment - Laboratory Results Result Diagrams: 06/30/18 14:43 06/30/18 14:43 <Zakia Vega - Last Filed: 06/30/18 16:20> - Laboratory Results Result Diagrams: 06/30/18 14:43 06/30/18 14:43 Lab Interpretation: No Changes Compared To Prior Results O2 Sat by Pulse Oximetry: 98 Pulse Ox Interpretation: Normal <Salena Barker - Last Filed: 06/30/18 16:51> Supervising Attending Note - Supervising Attending Note Comment: RESIDENT - Attestation: I have personally seen and examined this patient.: Yes I have fully participated in the care of the patient.: Yes I have reviewed all pertinent clinical information, including history, physical exam and plan: Yes - Notes: Notes:: PERSIST WATERY DIARRHEA X 10 DAYS. SEEN 4/5 FOR SAME, CT AND LABS REVIEWED. NO IMPROVE CIPRO FLAGYL. NEW ONSET ASSOC LIGHTHEADED WORSE W DIARRHEA. ALSO CO LEG EDEMA R X 2-3MONTHS. STATES HO CHRONIC B/L LEG EDEMA. PT POOR HISTORIAN DOESNT KNOW CHRONIC MEDS. HO DVT ON COUMADIN AND +IVC. NO SOB/CP. STATES SAW PMD FOR SAME, CURRENTLY USING COMPRESSION STOCKINGS. PAIN WORSE X 1 MO. NO TRAUMA. <Zakia Vega - Last Filed: 06/30/18 16:20> Progress - Re-Evaluation Re-evaluation Note: 06/30/18 16:20 D/W DR BEGUM ACCEPT FOR ADMISISON. REQUESTING CT A/P W PO AND IVC, TROPONIN. AW ARE OF RECENT CT REPORT, NO CO CP. WILL FU RESULTS - Data Reviewed Data Reviewed: Lab, Diagnostic imaging, EKG, Old records <Zakia Vega - Last Filed: 06/30/18 16:20> Medical Decision Making Medical Decision Makin82 year old male, pmhx of DVT, presenting w diarrhea refractory to outpatient an tibiotic tx CBC CMP PT/INR RLE duplex Orthostatics positive CT A/P w/ PO contrast requested <Salena Barker - Last Filed: 06/30/18 16:51> Disposition <Zakia Vega - Last Filed: 06/30/18 16:20> Discussed With DrCarmelita: Mahamed Concepcion Comment: Discussed with Dr. Concepcion who accepts pt to service Doctor Will See Patient In The: ED Counseled Patient/Family Regarding: Studies Performed, Diagnosis, Need For Followup - Disposition Disposition Time: 16:10 - POA Present On Arrival: Deep Vein Thrombosis / PE <Salena Barker - Last Filed: 06/30/18 16:51> - Disposition Disposition: HOSPITALIZED Condition: STABLE - Clinical Impression Clinical Impression: Gastroenteritis, History of DVT (deep vein thrombosis), Hypertension
[2018-06-30 14:49] LABS: BASO % 0.3 % (0.0-2.0); EOS # 0.2 K/uL (0.0-0.7); EOS % 2.3 % (0.0-4.0); HEMOGLOBIN 13.8 g/dL (12.0-18.0); LYMPH # 1.3 K/uL (1.0-4.3); LYMPH % 17.6 % (20.0-40.0); MEAN CELL VOLUME 88.6 fL (80.0-94.0); MEAN CORPUSCULAR HEMOGLOBIN 30.1 pg (27.0-31.0); MEAN PLATELET VOLUME 8.2 fL (7.2-11.7); MONO # 0.6 K/uL (0.0-0.8); MONO % 8.8 % (0.0-10.0); NEUT # 5.1 K/uL (1.8-7.0); RBC 4.59 Mil/uL (4.40-5.90); RED CELL DISTRIBUTION WIDTH 15.6 % (11.5-14.5); WHITE BLOOD COUNT 7.2 K/uL (4.8-10.8)
[2018-06-30 15:08] LABS: INR 4.3; PROTHROMBIN TIME 47.5 SECONDS (9.7-12.2)
[2018-06-30 15:14] LABS: ALB/GLOB RATIO 1.6 (1.0-2.1); ALBUMIN 3.9 g/dL (3.5-5.0); ALT/SGPT 18 U/L (21-72); AST/SGOT 24 U/L (17-59); BLOOD UREA NITROGEN 17 mg/dL (9-20); CALCIUM 8.8 mg/dl (8.6-10.4); GFR NON-AFRICAN AMERICAN 58
[2018-06-30] MEDS ORDERED: Iohexol 240 (50 ml) PO ONE (16:22)
[2018-06-30] MEDS ORDERED: Iohexol 240 (50 ml) ONE (16:41)
--- NOTE | 2018-06-30 16:56 | CP.PCM.HP ---
<Mahesh Murphy - Last Filed: 06/30/18 18:05> History of Present Illness - History of Present Illness History of Present Illness: H&P for hospitalist Dr. Concepcion Patient is poor historian. 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 Patient was seen in in ED approximately 9 days prior and was given abx for possible gastroenteritis. Patient states he took the anti biotics but has persistently had loose stools/ diarrhea (approximately 3-4 per day). Additionally patient reports abdominal pain over the umbilical area that is non radiating, 5/10, intermittent pain, described as crampy. Patient has associated chills and nausea, but no fevers, vomiting blood in stool. Patient also reports having b/l LE edema & back pain for several years. Denies recent travel and sick contacts. ROS: Denies headaches, chest pain, SOB, fevers; Reports intermittent dizziness after he walks for several blocks PMD: Nanette PMHx: recurrent DVTs with IVC filter 2016, HTN, HLD, peripheral vascular disease/insufficiency, kyphosis, ankylosing spondylitis PSHx: cholecystectomy, IVC filter 2012, IVC filter 2015, cardiac cath (obtuse marginal 60%, LAD 40%, left circumflex 30%) Meds: none Allergies: NKDA Famhx: denies Social history: former smoker 4 cig/day for twenty years. Patient quit "many years ago." Drinks socially, denies drug use, lives with at home. Present on Admission - Present on Admission Any Indicators Present on Admission: No History of DVT/PE: No History of Uncontrolled Diabetes: No Urinary Catheter: No Decubitus Ulcer Present: No Review of Systems - Constitutional Constitutional: Chills. absent: Daytime Sleepiness, Headache - EENT Eyes: absent: Blurred Vision, Change in Vision Ears: absent: Decreased Hearing Nose/Mouth/Throat: absent: Nasal Congestion - Cardiovascular Cardiovascular: absent: Chest Pain, Chest Pain at Rest, Dyspnea - Respiratory Respiratory: absent: Cough, Dyspnea, Hemoptysis - Gastrointestinal Gastrointestinal: Abdominal Pain, Diarrhea, Loose Stools, Nausea. absent: Change in Stool Character, Hematemesis - Genitourinary Genitourinary: absent: Change in Urinary Stream, Difficulty Urinating - Musculoskeletal Musculoskeletal: Back Pain. absent: Abnormal Gait - Integumentary Integumentary: absent: Bleeding Lesions - Neurological Neurological: absent: Abnormal Gait, Abnormal Hearing - Psychiatric Psychiatric: absent: Behavioral Changes - Endocrine Endocrine: absent: Change in Body Appearance - Hematologic/Lymphatic Hematologic: absent: Easy Bleeding, Easy Bruising Past Patient History - Infectious Disease Hx of Infectious Diseases: None - Past Medical History & Family History Past Medical History?: Yes - Past Social History Smoking Status: Former Smoker - CARDIAC Hx Hypercholesterolemia: Yes Hx Hypertension: Yes Hx Peripheral Edema: Yes - PULMONARY Hx Respiratory Disorders: No - NEUROLOGICAL Hx Neurological Disorder: No - HEENT Hx HEENT Problems: No - ENDOCRINE/METABOLIC Hx Endocrine Disorders: No - HEMATOLOGICAL/ONCOLOGICAL Hx Blood Disorders: No - INTEGUMENTARY Hx Dermatological Problems: No - MUSCULOSKELETAL/RHEUMATOLOGICAL Hx Arthritis: Yes - GASTROINTESTINAL Hx Gall Bladder Disease: Yes - GENITOURINARY/GYNECOLOGICAL Hx Genitourinary Disorders: Yes Hx Urinary Tract Infection: Yes - PSYCHIATRIC Hx Substance Use: No - SURGICAL HISTORY Hx Cholecystectomy: Yes - ANESTHESIA Hx Anesthesia: Yes Hx Anesthesia Reactions: No Hx Malignant Hyperthermia: No Meds Allergies/Adverse Reactions: Allergies Allergy/AdvReac Type Severity Reaction Status Date / Time No Known Allergies Allergy Verified 06/30/18 12:58 Physical Exam - Constitutional Appears: Non-toxic, No Acute Distress - Head Exam Head Exam: ATRAUMATIC, NORMAL INSPECTION, NORMOCEPHALIC - Eye Exam Eye Exam: Normal appearance Pupil Exam: NORMAL ACCOMODATION - ENT Exam ENT Exam: Mucous Membranes Moist Additional comments: unable to visual tympanic membrane due to ear canal curvature - Neck Exam Neck exam: Negative for: Thyromegaly Additional comments: inability to rotate head w/o pain - Respiratory Exam Respiratory Exam: Clear to Auscultation Bilateral, NORMAL BREATHING PATTERN. absent: Rales, Rhonchi, Wheezes - Cardiovascular Exam Cardiovascular Exam: +S1, +S2. absent: Systolic Murmur - GI/Abdominal Exam GI & Abdominal Exam: Distended, Hyperactive Bowel Sounds, Soft. absent: Firm, Guarding, Rigid Additional comments: tenderness on deep palpation over umbilical area - Extremities Exam Extremities exam: Positive for: calf tenderness, pedal edema Additional comments: 1+ pitting edema peripheral vascular changes to b/l extremities including hyperpigmentation of skin no open lesions, no rashes - Back Exam Back exam: NORMAL INSPECTION. absent: CVA tenderness (L), CVA tenderness (R), paraspinal tenderness - Neurological Exam Neurological exam: Alert, CN II-XII Intact, Oriented x3 - Psychiatric Exam Psychiatric exam: Normal Affect, Normal Mood - Skin Skin Exam: Dry, Intact, Normal Color, Warm Results - Vital Signs Recent Vital Signs: Last Vital Signs Temp 98.2 F 06/30/18 13:01 Pulse 50 L 06/30/18 15:44 Resp 17 06/30/18 13:01 BP 148/63 06/30/18 15:44 Pulse Ox 98 06/30/18 16:51 - Labs Result Diagrams: 06/30/18 14:43 06/30/18 14:43 Labs: Laboratory Results - last 24 hr 06/30/18 06/30/18 06/30/18 14:05 14:43 14:43 WBC 7.2 RBC 4.59 Hgb 13.8 Hct 40.7 MCV 88.6 MCH 30.1 MCHC 34.0 RDW 15.6 H Plt Count 179 MPV 8.2 Neut % (Auto) 71.0 Lymph % (Auto) 17.6 L Grainger % (Auto) 8.8 Eos % (Auto) 2.3 Baso % (Auto) 0.3 Neut # (Auto) 5.1 Lymph # (Auto) 1.3 Grainger # (Auto) 0.6 Eos # (Auto) 0.2 Baso # (Auto) 0.0 PT 47.5 H INR 4.3 H* APTT 49 H Sodium Potassium Chloride Carbon Dioxide Anion Gap BUN Creatinine Est GFR ( Amer) Est GFR (Non-Af Amer) POC Glucose (mg/dL) 115 H Random Glucose Calcium Total Bilirubin AST ALT Alkaline Phosphatase Troponin I Total Protein Albumin Globulin Albumin/Globulin Ratio 06/30/18 06/30/18 14:43 16:23 WBC RBC Hgb Hct MCV MCH MCHC RDW Plt Count MPV Neut % (Auto) Lymph % (Auto) Grainger % (Auto) Eos % (Auto) Baso % (Auto) Neut # (Auto) Lymph # (Auto) Grainger # (Auto) Eos # (Auto) Baso # (Auto) PT INR APTT Sodium 138 Potassium 3.8 Chloride 106 Carbon Dioxide 24 Anion Gap 12 BUN 17 Creatinine 1.2 Est GFR ( Amer) > 60 Est GFR (Non-Af Amer) 58 POC Glucose (mg/dL) Random Glucose 109 Calcium 8.8 Total Bilirubin 0.4 AST 24 ALT 18 L Alkaline Phosphatase 51 Troponin I < 0.0120 Total Protein 6.3 Albumin 3.9 Globulin 2.4 Albumin/Globulin Ratio 1.6 Assessment & Plan - Assessment and Plan (Free Text) Assessment: 82 year old male w/ PMHx of chronic DVTs, HTN, ankylosing sponylitis, BPH, presents to ED for persistent diarrhea/loose stools/abdominal pain Plan: Abdominal pain Loose stools/diarrhea - WBC wnl, no left shift, afebrile - consider etiologies including partial SBO to infectious etiologies - F/u CT abd/pelvis - F/u stool, ova studies, stool occul - F/u GI consult, Dr. Cope - Zofran 4mg Q6H - NS 100 mls/hr - NPO except meds - consider surgery consult pending CT results Supratheraputic INR History of DVTs - has IVC filter in place - F/u repeat dopplers - hold coumadin for now - will repeat INR in AM Dizziness - orthostatics BP stable sitting/standing, increase HR by 20 from sitting to standing - troponin x 1 negative - denies chest pain - etiologies include, but not limited to Dehydration, PE, intracranial lesion - due to denial of recent trauma, and surpratheraputic PE, likely dehydration - NS @ 100 cc/hr - will monitor for improvement History of BPH - on flomax 0.4 mg daily (last taken in May, unknown reason) - will wait for CT - if distended bladder, insert villeda, result flomax History of diabetes - Hold home medication metformin 500 ER i evenimg, januvia 100 mg daily - ISS Q6H - Accuchecks Q6H - Hypoglycemia protocol History of ankylosing spondylitis - chronic History of hyperlipidia - at home crestor 5 mg daily - will wait until CT abd/pelv before resumption of medication History of anxiety - uses ativan 1mg at night time - will monitor, give 0.25 mg IVP Q12H PRN Ppx - DVT: Heparin contraindicated 2/2 supratheraputic INR - GI: not indicated <Mahamed Concepcion - Last Filed: 07/01/18 07:23> Results - Vital Signs Recent Vital Signs: Last Vital Signs Temp 97.4 F L 06/30/18 21:27 Pulse 55 L 06/30/18 21:27 Resp 20 06/30/18 21:27 BP 151/78 H 06/30/18 22:00 Pulse Ox 97 06/30/18 21:27 - Labs Result Diagrams: 07/01/18 06:17 06/30/18 14:43 Labs: Laboratory Results - last 24 hr 06/30/18 06/30/18 06/30/18 14:05 14:43 14:43 WBC 7.2 RBC 4.59 Hgb 13.8 Hct 40.7 MCV 88.6 MCH 30.1 MCHC 34.0 RDW 15.6 H Plt Count 179 MPV 8.2 Neut % (Auto) 71.0 Lymph % (Auto) 17.6 L Grainger % (Auto) 8.8 Eos % (Auto) 2.3 Baso % (Auto) 0.3 Neut # (Auto) 5.1 Lymph # (Auto) 1.3 Grainger # (Auto) 0.6 Eos # (Auto) 0.2 Baso # (Auto) 0.0 PT 47.5 H INR 4.3 H* APTT 49 H Sodium Potassium Chloride Carbon Dioxide Anion Gap BUN Creatinine Est GFR ( Amer) Est GFR (Non-Af Amer) POC Glucose (mg/dL) 115 H Random Glucose Calcium Total Bilirubin AST ALT Alkaline Phosphatase Troponin I Total Protein Albumin Globulin Albumin/Globulin Ratio Urine Color Urine Clarity Urine pH Ur Specific [place] Urine Protein Urine Glucose (UA) Urine Ketones Urine Blood Urine Nitrate Urine Bilirubin Urine Urobilinogen Ur Leukocyte Esterase Urine WBC (Auto) Urine RBC (Auto) 06/30/18 06/30/18 06/30/18 14:43 16:23 16:34 WBC RBC Hgb Hct MCV MCH MCHC RDW Plt Count MPV Neut % (Auto) Lymph % (Auto) Grainger % (Auto) Eos % (Auto) Baso % (Auto) Neut # (Auto) Lymph # (Auto) Grainger # (Auto) Eos # (Auto) Baso # (Auto) PT INR APTT Sodium 138 Potassium 3.8 Chloride 106 Carbon Dioxide 24 Anion Gap 12 BUN 17 Creatinine 1.2 Est GFR ( Amer) > 60 Est GFR (Non-Af Amer) 58 POC Glucose (mg/dL) Random Glucose 109 Calcium 8.8 Total Bilirubin 0.4 AST 24 ALT 18 L Alkaline Phosphatase 51 Troponin I < 0.0120 Total Protein 6.3 Albumin 3.9 Globulin 2.4 Albumin/Globulin Ratio 1.6 Urine Color Yellow Urine Clarity Clear Urine pH 6.0 Ur Specific [place] >= 1.030 Urine Protein Negative Urine Glucose (UA) Negative Urine Ketones Negative Urine Blood Small Urine Nitrate Negative Urine Bilirubin Negative Urine Urobilinogen 0.2 Ur Leukocyte Esterase Negative Urine WBC (Auto) < 1 Urine RBC (Auto) 2 06/30/18 06/30/18 07/01/18 18:20 21:22 00:13 WBC RBC Hgb Hct MCV MCH MCHC RDW Plt Count MPV Neut % (Auto) Lymph % (Auto) Grainger % (Auto) Eos % (Auto) Baso % (Auto) Neut # (Auto) Lymph # (Auto) Grainger # (Auto) Eos # (Auto) Baso # (Auto) PT INR APTT Sodium Potassium Chloride Carbon Dioxide Anion Gap BUN Creatinine Est GFR ( Amer) Est GFR (Non-Af Amer) POC Glucose (mg/dL) 102 121 H 99 Random Glucose Calcium Total Bilirubin AST ALT Alkaline Phosphatase Troponin I Total Protein Albumin Globulin Albumin/Globulin Ratio Urine Color Urine Clarity Urine pH Ur Specific [place] Urine Protein Urine Glucose (UA) Urine Ketones Urine Blood Urine Nitrate Urine Bilirubin Urine Urobilinogen Ur Leukocyte Esterase Urine WBC (Auto) Urine RBC (Auto) 07/01/18 07/01/18 07/01/18 06:09 06:17 06:17 WBC 5.1 RBC 4.41 Hgb 13.2 Hct 39.2 MCV 88.8 MCH 29.9 MCHC 33.7 RDW 15.6 H Plt Count 155 MPV 8.1 Neut % (Auto) Lymph % (Auto) Grainger % (Auto) Eos % (Auto) Baso % (Auto) Neut # (Auto) Lymph # (Auto) Grainger # (Auto) Eos # (Auto) Baso # (Auto) PT INR APTT 43 H D Sodium Potassium Chloride Carbon Dioxide Anion Gap BUN Creatinine Est GFR ( Amer) Est GFR (Non-Af Amer) POC Glucose (mg/dL) 94 Random Glucose Calcium Total Bilirubin AST ALT Alkaline Phosphatase Troponin I Total Protein Albumin Globulin Albumin/Globulin Ratio Urine Color Urine Clarity Urine pH Ur Specific [place] Urine Protein Urine Glucose (UA) Urine Ketones Urine Blood Urine Nitrate Urine Bilirubin Urine Urobilinogen Ur Leukocyte Esterase Urine WBC (Auto) Urine RBC (Auto) Attending/Attestation - Attestation I have personally seen and examined this patient.: Yes I have fully participated in the care of the patient.: Yes I have reviewed all pertinent clinical information: Yes Notes (Text): 07/01/18 07:17 Medical attending: Patient was seen and examined by me with the medical doctor nuclear medicine last night in the ER. Reviewed the above note and agree with the above The patient was previously here on 06/20 with similar situation and sent home with PO abx. At that time it was thought he maybe having gastroenteritis. He had a CT done at that time and also he did not have a WBC or fever at that time. He now returns to the hospital after still having the diarrhea. There is some concern for orthostasis however in the ER his BPs were ok when they checked orthostatics - he is however tacycardic. He was observed walking to and from the bathroom because of the ongoing diarrhea. He still does not have a WBC count and there is no left shift and no fever. It is not clear if he has had a colonoscopy before to check for a malignancy. Because it has been 10 days since he was last seen we did a repeat CT abdomen and pelvis which suggest some wall thickening that they say could be colitis. For the time being will do Cipro and Flagyl IV, however we should check also for CDIff, stool studies, as well as get a GI evaluation. Mahamed Concepcion
[2018-06-30 17:02] LABS: URINE BILIRUBIN NEGATIVE (NEGATIVE); URINE CLARITY Clear (Clear); URINE COLOR YELLOW (YELLOW); URINE GLUCOSE (UA) NEGATIVE (Normal)
[2018-06-30 17:03] LABS: URINE BLOOD SMALL (NEGATIVE)
[2018-06-30 17:04] LABS: URINE LEUKOCYTE ESTERASE NEGATIVE Leu/uL (Negative); URINE PROTEIN NEGATIVE (NEGATIVE); URINE UROBILINOGEN 0.2 mg/dL (0.2-1.0)
[2018-06-30] MEDS ORDERED: Dextrose 50% SYRINGE Inj (50 ml) IV PRN (17:31)
[2018-06-30] MEDS ORDERED: Glucagon Recombinant 1 mg Inj IM PRN (17:31)
[2018-06-30] MEDS ORDERED: Iodixanol 320 MG/ML 100 ML BOTTLE IV ONE (18:09)
[2018-06-30] MEDS: (Novolog) Insulin Aspart, Recombinant 100 u/ml 10 ml vial SC SCH (18:24)
[2018-06-30] MEDS ORDERED: Sodium Chloride 0.9% 1,000 ML ONE (18:29)
[2018-06-30] MEDS: Sodium Chloride 0.9% 1,000 ML IV SCH (18:30)
[2018-06-30 21:28] VITALS: RESP 20
[2018-07-01] MEDS: (Novolog) Insulin Aspart, Recombinant 100 u/ml 10 ml vial SC SCH ×5 (00:15→21:25)
[2018-07-01] MEDS: Sodium Chloride 0.9% 1,000 ML IV SCH ×2 (03:30→06:28)
[2018-07-01 06:38] LABS: HEMOGLOBIN 13.2 g/dL (12.0-18.0); MEAN CELL VOLUME 88.8 fL (80.0-94.0); MEAN CORPUSCULAR HEMOGLOBIN 29.9 pg (27.0-31.0); MEAN CORPUSCULAR HGB CONC 33.7 g/dL (33.0-37.0); MEAN PLATELET VOLUME 8.1 fL (7.2-11.7); RBC 4.41 Mil/uL (4.40-5.90); RED CELL DISTRIBUTION WIDTH 15.6 % (11.5-14.5); WHITE BLOOD COUNT 5.1 K/uL (4.8-10.8)
--- NOTE | 2018-07-01 06:43 | CP.PCM.PN ---
<Mahesh Murphy - Last Filed: 07/01/18 11:08> Subjective - Date & Time of Evaluation Date of Evaluation: 07/01/18 Time of Evaluation: 07:50 - Subjective Subjective: Medicine progress note for hospitalist Dr. Concepcion. Patient seen and examined at bedside. Patient reports 2 episodes of diarrhea since this morning, most recent one being much less than previous episodes. Denies blood in stool. Patient still reports some abdominal pain but reports it as less than yesterday. Denies headaches, vision changes, chest pain, fevers, constipation. Patient reports colonoscopy performed 4-5 years prior and it was normal. Patient unsure of physician. Objective - Vital Signs/Intake and Output Vital Signs (last 24 hours): Temp Pulse Resp BP Pulse Ox 97.4 F L 55 L 20 151/78 H 97 06/30/18 21:27 06/30/18 21:27 06/30/18 21:27 06/30/18 22:00 06/30/18 21:27 - Medications Medications: Current Medications Dextrose (Dextrose 50% Inj) 0 ml IV STAT PRN; Protocol PRN Reason: Hypoglycemia Protocol Dextrose (Glutose 15) 0 gm PO ONCE PRN; Protocol PRN Reason: Hypoglycemia Protocol Glucagon (Glucagen Diagnostic Kit) 0 mg IM STAT PRN; Protocol PRN Reason: Hypoglycemia Protocol Sodium Chloride (Sodium Chloride 0.9%) 1,000 mls @ 100 mls/hr IV .Q10H [facility] Last Admin: 07/01/18 06:28 Dose: 100 mls/hr Dextrose (Dextrose 5% In Water 1000 Ml) 1,000 mls @ 0 mls/hr IV .Q0M PRN; Protocol PRN Reason: Hypoglycemia Protocol Insulin Aspart (Novolog) 0 unit SC Q6H [facility]; Protocol Last Admin: 07/01/18 06:30 Dose: Not Given Lorazepam (Ativan) 0.25 mg IVP Q12H PRN PRN Reason: Anxiety Ondansetron HCl (Zofran Inj) 4 mg IVP Q6H PRN PRN Reason: Nausea/Vomiting - Labs Labs: 06/30/18 14:43 06/30/18 14:43 PT 47.5 SECONDS (9.7-12.2) H 06/30/18 14:43 INR 4.3 H* 06/30/18 14:43 APTT 49 SECONDS (21-34) H 06/30/18 14:43 - Constitutional Appears: Non-toxic, No Acute Distress - Head Exam Head Exam: NORMAL INSPECTION - Eye Exam Eye Exam: Normal appearance - ENT Exam ENT Exam: Mucous Membranes Moist - Respiratory Exam Respiratory Exam: Clear to Ausculation Bilateral, NORMAL BREATHING PATTERN. absent: Rales, Rhonchi, Wheezes - Cardiovascular Exam Cardiovascular Exam: +S1, +S2 - GI/Abdominal Exam GI & Abdominal Exam: Distended, Soft, Normal Bowel Sounds. absent: Firm, Guarding, Rigid Additional comments: periumbilical to RLQ pain, negative mcburney point, negative rebound tenderness - Back Exam Back Exam: absent: CVA tenderness (L), CVA tenderness (R) - Neurological Exam Neurological Exam: Alert, Awake, Oriented x3 - Psychiatric Exam Psychiatric exam: Normal Affect, Normal Mood - Skin Skin Exam: Dry, Intact, Normal Color, Warm Assessment and Plan - Assessment and Plan (Free Text) Assessment: 82 year old male w/ PMHx of chronic DVTs, HTN, ankylosing sponylitis, BPH, presents to ED for persistent diarrhea/loose stools/abdominal pain Plan: Abdominal pain Loose stools/diarrhea Colitis - WBC wnl, no left shift, afebrile - CT abd/pelvis initial read: colitis of descending, sigmoid, rectosigmoid - F/u CT abd/pelvis offical read - stool occult positive - H/H stable wnl - F/u stool, ova studies - F/u GI consult, Dr. Cope - [facility] liquid diet - Zofran 4mg Q6H - 1/2 NS 100 mls/hr - ciprofloxacin 400 mg IVPB Q12, flaggyl 500 mg IVPB Q8H Supratheraputic INR History of DVTs - initial INR 4.3; repeat 3.5 - has IVC filter in place - F/u repeat dopplers - hold coumadin for now - will repeat INR in AM Dizziness - orthostatics BP stable sitting/standing, increase HR by 20 from sitting to standing - troponin x 1 negative - denies chest pain - etiologies include, but not limited to Dehydration, PE, intracranial lesion - due to denial of recent trauma, and surpratheraputic PE, likely dehydration - 1/2 NS @ 100 cc/hr - will monitor for improvement History of BPH - per prelim CT abd/pelvsis, enlarged prostate, no distended bladder - pt reports no issues urinating, will continue to monitor - taken flomax in May History of diabetes - Hold home medication metformin 500 ER i evenimg, januvia 100 mg daily - ISS ACHS - Accuchecks ACHS - Hypoglycemia protocol History of ankylosing spondylitis - chronic History of hyperlipidia - at home crestor 5 mg daily - will wait until CT abd/pelv before resumption of medication History of anxiety - uses ativan 1mg at night time - will monitor, give 0.25 mg IVP Q12H PRN Ppx - DVT: Heparin contraindicated 2/2 supratheraputic INR - GI: not indicated <CarlenePeter H - Last Filed: 07/01/18 13:59> Objective - Vital Signs/Intake and Output Vital Signs (last 24 hours): Temp Pulse Resp BP Pulse Ox 97.6 F 51 L 20 156/62 H 98 07/01/18 08:30 07/01/18 12:30 07/01/18 12:30 07/01/18 12:30 07/01/18 12:30 Intake and Output: 07/01/18 07/01/18 06:59 18:59 Intake Total 800 Balance 800 - Medications Medications: Current Medications Carvedilol (Coreg) 6.25 mg PO BID [facility] Last Admin: 07/01/18 10:36 Dose: Not Given Dextrose (Dextrose 50% Inj) 0 ml IV STAT PRN; Protocol PRN Reason: Hypoglycemia Protocol Dextrose (Glutose 15) 0 gm PO ONCE PRN; Protocol PRN Reason: Hypoglycemia Protocol Famotidine (Pepcid) 20 mg PO DAILY [facility] Last Admin: 07/01/18 10:33 Dose: 20 mg Glucagon (Glucagen Diagnostic Kit) 0 mg IM STAT PRN; Protocol PRN Reason: Hypoglycemia Protocol Dextrose (Dextrose 5% In Water 1000 Ml) 1,000 mls @ 0 mls/hr IV .Q0M PRN; Protocol PRN Reason: Hypoglycemia Protocol Ciprofloxacin (Cipro 400mg/200ml Dsw) 400 mg in 200 mls @ 133 mls/hr IVPB Q12H [facility]; Protocol Last Admin: 07/01/18 10:00 Dose: 133 mls/hr Metronidazole (Flagyl) 500 mg in 100 mls @ 100 mls/hr IVPB Q8H [facility]; Protocol Last Admin: 07/01/18 08:58 Dose: 100 mls/hr Sodium Chloride (Sodium Chloride 0.45%) 1,000 mls @ 100 mls/hr IV .Q10H [facility] Last Admin: 07/01/18 11:29 Dose: 100 mls/hr Insulin Aspart (Novolog) 0 unit SC ACHS [facility]; Protocol Last Admin: 07/01/18 12:32 Dose: 3 units Lorazepam (Ativan) 0.25 mg IVP Q12H PRN PRN Reason: Anxiety Ondansetron HCl (Zofran Inj) 4 mg IVP Q6H PRN PRN Reason: Nausea/Vomiting - Labs Labs: 07/01/18 06:17 07/01/18 06:17 PT 38.6 SECONDS (9.7-12.2) H D 07/01/18 06:17 INR 3.5 H* 07/01/18 06:17 APTT 43 SECONDS (21-34) H D 07/01/18 06:17 Attending/Attestation - Attestation I have personally seen and examined this patient.: Yes I have fully participated in the care of the patient.: Yes I have reviewed all pertinent clinical information, including history, physical exam and plan: Yes Notes (Text): 07/01/18 13:56 Medical attending: Patient was seen and examined by me. Agree with the above note by the resident The patient reported that overall was feeling somewhat better - however this morning still had two episodes of diarrhea - however not as severe We are still pending on the stool studies at this moment. I tried calling the patient's primary physician because the patient thinks he had a previous colonoscopy in the past however the PCP explained he will have to look and see The CT scan from yesterday suggest colitis and so abx were continued today IV Cipro and IV Flagyl Mahamed Concepcion
[2018-07-01 07:36] LABS: ALB/GLOB RATIO 1.4 (1.0-2.1); ALBUMIN 3.1 g/dL (3.5-5.0); ALT/SGPT 23 U/L (21-72); AST/SGOT 22 U/L (17-59); BLOOD UREA NITROGEN 13 mg/dL (9-20); CALCIUM 8.1 mg/dl (8.6-10.4); GFR NON-AFRICAN AMERICAN > 60
[2018-07-01 07:46] LABS: PROTHROMBIN TIME 38.6 SECONDS (9.7-12.2)
[2018-07-01 07:59] LABS: INR 3.5
--- NOTE | 2018-07-01 08:52 | CP.PCM.CON ---
<Edward Domingo - Last Filed: 07/01/18 09:12> History of Present Illness - History of Present Illness History of Present Illness: PGY5 Initial GI Consult Nilton Mojica is a 82M w/ hx of HTN, HLD, chronic DVT w/ IVC filter & on coumadin, peripheral vascular disease, ankylosing spondylitis, presents to ED for persistent diarrhea. He was seen in the ED 10 days prior and was given abx for possible gastroenteritis. Pt states that he finished his abx course without improvement in symptoms. He currently denies any abd pain and notes to have some discomfort prior to arrival in the periumbilical area. Pt states that he only has 2 BM yesterday and one overnight. He notes that they are more formed the last two days. +chills; denies any diaphoresis or fever. Pt states that he had a colonoscopy 3 years ago, but does not recall the findings. CT on the ER revealed colitis of the descending, sigmoid, and rectosigmoid. ROS: Denies headaches, chest pain, SOB, fevers; Reports intermittent dizziness after he walks for several blocks; otherwise 12 point ROS is neg PMHx: recurrent DVTs with IVC filter 2015, HTN, HLD, peripheral vascular disease/insufficiency, kyphosis, ankylosing spondylitis PSHx: cholecystectomy, IVC filter 2012, IVC filter 2015, cardiac cath (obtuse marginal 60%, LAD 40%, left circumflex 30%) Famhx: denies any hx of GI related malignancies Social history: former smoker 4 cig/day for twenty years. Patient quit "many years ago." Drinks socially, denies drug use, lives with at home. Past Patient History - Infectious Disease Hx of Infectious Diseases: None - Past Medical History & Family History Past Medical History?: Yes - Past Social History Smoking Status: Former Smoker - CARDIAC Hx Hypercholesterolemia: Yes Hx Hypertension: Yes Hx Peripheral Edema: Yes - PULMONARY Hx Respiratory Disorders: No - NEUROLOGICAL Hx Neurological Disorder: No - HEENT Hx HEENT Problems: No - ENDOCRINE/METABOLIC Hx Endocrine Disorders: No - HEMATOLOGICAL/ONCOLOGICAL Hx Blood Disorders: No - INTEGUMENTARY Hx Dermatological Problems: No - MUSCULOSKELETAL/RHEUMATOLOGICAL Hx Arthritis: Yes - GASTROINTESTINAL Hx Gall Bladder Disease: Yes - GENITOURINARY/GYNECOLOGICAL Hx Genitourinary Disorders: Yes Hx Urinary Tract Infection: Yes - PSYCHIATRIC Hx Substance Use: No - SURGICAL HISTORY Hx Cholecystectomy: Yes - ANESTHESIA Hx Anesthesia: Yes Hx Anesthesia Reactions: No Hx Malignant Hyperthermia: No Meds Allergies/Adverse Reactions: Allergies Allergy/AdvReac Type Severity Reaction Status Date / Time No Known Allergies Allergy Verified 06/30/18 12:58 - Medications Medications: Current Medications Dextrose (Dextrose 50% Inj) 0 ml IV STAT PRN; Protocol PRN Reason: Hypoglycemia Protocol Dextrose (Glutose 15) 0 gm PO ONCE PRN; Protocol PRN Reason: Hypoglycemia Protocol Glucagon (Glucagen Diagnostic Kit) 0 mg IM STAT PRN; Protocol PRN Reason: Hypoglycemia Protocol Sodium Chloride (Sodium Chloride 0.9%) 1,000 mls @ 100 mls/hr IV .Q10H [facility] Last Admin: 07/01/18 06:28 Dose: 100 mls/hr Dextrose (Dextrose 5% In Water 1000 Ml) 1,000 mls @ 0 mls/hr IV .Q0M PRN; Protocol PRN Reason: Hypoglycemia Protocol Ciprofloxacin (Cipro 400mg/200ml Dsw) 400 mg in 200 mls @ 133 mls/hr IVPB Q12H [facility]; Protocol Metronidazole (Flagyl) 500 mg in 100 mls @ 100 mls/hr IVPB Q8H [facility]; Protocol Insulin Aspart (Novolog) 0 unit SC Q6H [facility]; Protocol Last Admin: 07/01/18 06:30 Dose: Not Given Lorazepam (Ativan) 0.25 mg IVP Q12H PRN PRN Reason: Anxiety Ondansetron HCl (Zofran Inj) 4 mg IVP Q6H PRN PRN Reason: Nausea/Vomiting Physical Exam - Constitutional Appears: Non-toxic, No Acute Distress - Head Exam Head Exam: ATRAUMATIC, NORMOCEPHALIC - Eye Exam Eye Exam: Normal appearance - ENT Exam ENT Exam: Mucous Membranes Moist - Neck Exam Neck exam: Positive for: Normal Inspection - Respiratory Exam Respiratory Exam: Clear to Auscultation Bilateral, NORMAL BREATHING PATTERN. absent: Rales, Rhonchi, Wheezes, Respiratory Distress - Cardiovascular Exam Cardiovascular Exam: REGULAR RHYTHM, +S1, +S2 - GI/Abdominal Exam GI & Abdominal Exam: Normal Bowel Sounds, Soft. absent: Diminished Bowel Sounds, Distended, Firm, Guarding, Hernia, Organomegaly, Rigid, Tenderness - Extremities Exam Extremities exam: Negative for: joint swelling, pedal edema - Neurological Exam Neurological exam: Alert, Oriented x3 - Psychiatric Exam Psychiatric exam: Normal Affect, Normal Mood - Skin Skin Exam: Dry, Intact, Normal Color, Warm Results - Vital Signs Recent Vital Signs: Last Vital Signs Temp 97.4 F L 06/30/18 21:27 Pulse 55 L 06/30/18 21:27 Resp 20 06/30/18 21:27 BP 151/78 H 06/30/18 22:00 Pulse Ox 97 06/30/18 21:27 - Labs Result Diagrams: 07/01/18 06:17 07/01/18 06:17 Labs: Laboratory Results - last 24 hr 06/30/18 06/30/18 06/30/18 14:05 14:43 14:43 WBC 7.2 RBC 4.59 Hgb 13.8 Hct 40.7 MCV 88.6 MCH 30.1 MCHC 34.0 RDW 15.6 H Plt Count 179 MPV 8.2 Neut % (Auto) 71.0 Lymph % (Auto) 17.6 L [place] % (Auto) 8.8 Eos % (Auto) 2.3 Baso % (Auto) 0.3 Neut # (Auto) 5.1 Lymph # (Auto) 1.3 [place] # (Auto) 0.6 Eos # (Auto) 0.2 Baso # (Auto) 0.0 PT 47.5 H INR 4.3 H* APTT 49 H Sodium Potassium Chloride Carbon Dioxide Anion Gap BUN Creatinine Est GFR ( Amer) Est GFR (Non-Af Amer) POC Glucose (mg/dL) 115 H Random Glucose Calcium Phosphorus Magnesium Total Bilirubin AST ALT Alkaline Phosphatase Troponin I Total Protein Albumin Globulin Albumin/Globulin Ratio Urine Color Urine Clarity Urine pH Ur Specific [place] Urine Protein Urine Glucose (UA) Urine Ketones Urine Blood Urine Nitrate Urine Bilirubin Urine Urobilinogen Ur Leukocyte Esterase Urine WBC (Auto) Urine RBC (Auto) Stool Occult Blood 06/30/18 06/30/18 06/30/18 14:43 16:23 16:34 WBC RBC Hgb Hct MCV MCH MCHC RDW Plt Count MPV Neut % (Auto) Lymph % (Auto) [place] % (Auto) Eos % (Auto) Baso % (Auto) Neut # (Auto) Lymph # (Auto) [place] # (Auto) Eos # (Auto) Baso # (Auto) PT INR APTT Sodium 138 Potassium 3.8 Chloride 106 Carbon Dioxide 24 Anion Gap 12 BUN 17 Creatinine 1.2 Est GFR ( Amer) > 60 Est GFR (Non-Af Amer) 58 POC Glucose (mg/dL) Random Glucose 109 Calcium 8.8 Phosphorus Magnesium Total Bilirubin 0.4 AST 24 ALT 18 L Alkaline Phosphatase 51 Troponin I < 0.0120 Total Protein 6.3 Albumin 3.9 Globulin 2.4 Albumin/Globulin Ratio 1.6 Urine Color Yellow Urine Clarity Clear Urine pH 6.0 Ur Specific [place] >= 1.030 Urine Protein Negative Urine Glucose (UA) Negative Urine Ketones Negative Urine Blood Small Urine Nitrate Negative Urine Bilirubin Negative Urine Urobilinogen 0.2 Ur Leukocyte Esterase Negative Urine WBC (Auto) < 1 Urine RBC (Auto) 2 Stool Occult Blood 06/30/18 06/30/18 07/01/18 18:20 21:22 00:13 WBC RBC Hgb Hct MCV MCH MCHC RDW Plt Count MPV Neut % (Auto) Lymph % (Auto) [place] % (Auto) Eos % (Auto) Baso % (Auto) Neut # (Auto) Lymph # (Auto) [place] # (Auto) Eos # (Auto) Baso # (Auto) PT INR APTT Sodium Potassium Chloride Carbon Dioxide Anion Gap BUN Creatinine Est GFR ( Amer) Est GFR (Non-Af Amer) POC Glucose (mg/dL) 102 121 H 99 Random Glucose Calcium Phosphorus Magnesium Total Bilirubin AST ALT Alkaline Phosphatase Troponin I Total Protein Albumin Globulin Albumin/Globulin Ratio Urine Color Urine Clarity Urine pH Ur Specific [place] Urine Protein Urine Glucose (UA) Urine Ketones Urine Blood Urine Nitrate Urine Bilirubin Urine Urobilinogen Ur Leukocyte Esterase Urine WBC (Auto) Urine RBC (Auto) Stool Occult Blood 07/01/18 07/01/18 07/01/18 06:09 06:17 06:17 WBC 5.1 RBC 4.41 Hgb 13.2 Hct 39.2 MCV 88.8 MCH 29.9 MCHC 33.7 RDW 15.6 H Plt Count 155 MPV 8.1 Neut % (Auto) Lymph % (Auto) [place] % (Auto) Eos % (Auto) Baso % (Auto) Neut # (Auto) Lymph # (Auto) [place] # (Auto) Eos # (Auto) Baso # (Auto) PT INR APTT Sodium 138 Potassium 3.4 L Chloride 108 H Carbon Dioxide 23 Anion Gap 10 BUN 13 Creatinine 1.0 Est GFR ( Amer) > 60 Est GFR (Non-Af Amer) > 60 POC Glucose (mg/dL) 94 Random Glucose 91 Calcium 8.1 L Phosphorus 2.6 Magnesium 1.9 Total Bilirubin 0.7 AST 22 ALT 23 Alkaline Phosphatase 43 Troponin I Total Protein 5.4 L Albumin 3.1 L D Globulin 2.2 Albumin/Globulin Ratio 1.4 Urine Color Urine Clarity Urine pH Ur Specific [place] Urine Protein Urine Glucose (UA) Urine Ketones Urine Blood Urine Nitrate Urine Bilirubin Urine Urobilinogen Ur Leukocyte Esterase Urine WBC (Auto) Urine RBC (Auto) Stool Occult Blood 07/01/18 07/01/18 06:17 07:13 WBC RBC Hgb Hct MCV MCH MCHC RDW Plt Count MPV Neut % (Auto) Lymph % (Auto) [place] % (Auto) Eos % (Auto) Baso % (Auto) Neut # (Auto) Lymph # (Auto) [place] # (Auto) Eos # (Auto) Baso # (Auto) PT 38.6 H D INR 3.5 H* APTT 43 H D Sodium Potassium Chloride Carbon Dioxide Anion Gap BUN Creatinine Est GFR ( Amer) Est GFR (Non-Af Amer) POC Glucose (mg/dL) Random Glucose Calcium Phosphorus Magnesium Total Bilirubin AST ALT Alkaline Phosphatase Troponin I Total Protein Albumin Globulin Albumin/Globulin Ratio Urine Color Urine Clarity Urine pH Ur Specific [place] Urine Protein Urine Glucose (UA) Urine Ketones Urine Blood Urine Nitrate Urine Bilirubin Urine Urobilinogen Ur Leukocyte Esterase Urine WBC (Auto) Urine RBC (Auto) Stool Occult Blood Positive H Assessment & Plan - Assessment and Plan (Free Text) Assessment: 82 year old male w/ PMHx of chronic DVTs, HTN, ankylosing sponylitis, BPH, presents to ED for persistent diarrhea/loose stools/abdominal pain Left sided colitis; ddx: infectous, malignancy; IBD, polyp Diarrhea; likely 2/2 above Hx of Ankylosing sponylitis Chronic DVTs Plan: -recommend cdiff toxin and stool cultures -continue cipro and flagyl IV -continue IV fluids -can start on full liquids from GI standpoint -zofran for nausea PRN -blood cultures pending -rest of care as per primary team D/W Dr. Cope <Myles Cope Y - Last Filed: 07/01/18 12:01> Meds - Medications Medications: Current Medications Carvedilol (Coreg) 6.25 mg PO BID [facility] Last Admin: 07/01/18 10:36 Dose: Not Given Dextrose (Dextrose 50% Inj) 0 ml IV STAT PRN; Protocol PRN Reason: Hypoglycemia Protocol Dextrose (Glutose 15) 0 gm PO ONCE PRN; Protocol PRN Reason: Hypoglycemia Protocol Famotidine (Pepcid) 20 mg PO DAILY [facility] Last Admin: 07/01/18 10:33 Dose: 20 mg Glucagon (Glucagen Diagnostic Kit) 0 mg IM STAT PRN; Protocol PRN Reason: Hypoglycemia Protocol Dextrose (Dextrose 5% In Water 1000 Ml) 1,000 mls @ 0 mls/hr IV .Q0M PRN; Protocol PRN Reason: Hypoglycemia Protocol Ciprofloxacin (Cipro 400mg/200ml Dsw) 400 mg in 200 mls @ 133 mls/hr IVPB Q12H [facility]; Protocol Last Admin: 07/01/18 10:00 Dose: 133 mls/hr Metronidazole (Flagyl) 500 mg in 100 mls @ 100 mls/hr IVPB Q8H [facility]; Protocol Last Admin: 07/01/18 08:58 Dose: 100 mls/hr Sodium Chloride (Sodium Chloride 0.45%) 1,000 mls @ 100 mls/hr IV .Q10H [facility] Last Admin: 07/01/18 11:29 Dose: 100 mls/hr Insulin Aspart (Novolog) 0 unit SC ACHS [facility]; Protocol Lorazepam (Ativan) 0.25 mg IVP Q12H PRN PRN Reason: Anxiety Ondansetron HCl (Zofran Inj) 4 mg IVP Q6H PRN PRN Reason: Nausea/Vomiting Results - Vital Signs Recent Vital Signs: Last Vital Signs Temp 97.4 F L 06/30/18 21:27 Pulse 55 L 06/30/18 21:27 Resp 20 06/30/18 21:27 BP 151/78 H 06/30/18 22:00 Pulse Ox 97 06/30/18 21:27 - Labs Result Diagrams: 07/01/18 06:17 07/01/18 06:17 Labs: Laboratory Results - last 24 hr 06/30/18 06/30/18 06/30/18 14:05 14:43 14:43 WBC 7.2 RBC 4.59 Hgb 13.8 Hct 40.7 MCV 88.6 MCH 30.1 MCHC 34.0 RDW 15.6 H Plt Count 179 MPV 8.2 Neut % (Auto) 71.0 Lymph % (Auto) 17.6 L [place] % (Auto) 8.8 Eos % (Auto) 2.3 Baso % (Auto) 0.3 Neut # (Auto) 5.1 Lymph # (Auto) 1.3 [place] # (Auto) 0.6 Eos # (Auto) 0.2 Baso # (Auto) 0.0 PT 47.5 H INR 4.3 H* APTT 49 H Sodium Potassium Chloride Carbon Dioxide Anion Gap BUN Creatinine Est GFR ( Amer) Est GFR (Non-Af Amer) POC Glucose (mg/dL) 115 H Random Glucose Calcium Phosphorus Magnesium Total Bilirubin AST ALT Alkaline Phosphatase Troponin I Total Protein Albumin Globulin Albumin/Globulin Ratio Urine Color Urine Clarity Urine pH Ur Specific [place] Urine Protein Urine Glucose (UA) Urine Ketones Urine Blood Urine Nitrate Urine Bilirubin Urine Urobilinogen Ur Leukocyte Esterase Urine WBC (Auto) Urine RBC (Auto) Stool Occult Blood 06/30/18 06/30/18 06/30/18 14:43 16:23 16:34 WBC RBC Hgb Hct MCV MCH MCHC RDW Plt Count MPV Neut % (Auto) Lymph % (Auto) [place] % (Auto) Eos % (Auto) Baso % (Auto) Neut # (Auto) Lymph # (Auto) [place] # (Auto) Eos # (Auto) Baso # (Auto) PT INR APTT Sodium 138 Potassium 3.8 Chloride 106 Carbon Dioxide 24 Anion Gap 12 BUN 17 Creatinine 1.2 Est GFR ( Amer) > 60 Est GFR (Non-Af Amer) 58 POC Glucose (mg/dL) Random Glucose 109 Calcium 8.8 Phosphorus Magnesium Total Bilirubin 0.4 AST 24 ALT 18 L Alkaline Phosphatase 51 Troponin I < 0.0120 Total Protein 6.3 Albumin 3.9 Globulin 2.4 Albumin/Globulin Ratio 1.6 Urine Color Yellow Urine Clarity Clear Urine pH 6.0 Ur Specific [place] >= 1.030 Urine Protein Negative Urine Glucose (UA) Negative Urine Ketones Negative Urine Blood Small Urine Nitrate Negative Urine Bilirubin Negative Urine Urobilinogen 0.2 Ur Leukocyte Esterase Negative Urine WBC (Auto) < 1 Urine RBC (Auto) 2 Stool Occult Blood 06/30/18 06/30/18 07/01/18 18:20 21:22 00:13 WBC RBC Hgb Hct MCV MCH MCHC RDW Plt Count MPV Neut % (Auto) Lymph % (Auto) [place] % (Auto) Eos % (Auto) Baso % (Auto) Neut # (Auto) Lymph # (Auto) [place] # (Auto) Eos # (Auto) Baso # (Auto) PT INR APTT Sodium Potassium Chloride Carbon Dioxide Anion Gap BUN Creatinine Est GFR ( Amer) Est GFR (Non-Af Amer) POC Glucose (mg/dL) 102 121 H 99 Random Glucose Calcium Phosphorus Magnesium Total Bilirubin AST ALT Alkaline Phosphatase Troponin I Total Protein Albumin Globulin Albumin/Globulin Ratio Urine Color Urine Clarity Urine pH Ur Specific [place] Urine Protein Urine Glucose (UA) Urine Ketones Urine Blood Urine Nitrate Urine Bilirubin Urine Urobilinogen Ur Leukocyte Esterase Urine WBC (Auto) Urine RBC (Auto) Stool Occult Blood 07/01/18 07/01/18 07/01/18 06:09 06:17 06:17 WBC 5.1 RBC 4.41 Hgb 13.2 Hct 39.2 MCV 88.8 MCH 29.9 MCHC 33.7 RDW 15.6 H Plt Count 155 MPV 8.1 Neut % (Auto) 55.0 Lymph % (Auto) 31.0 [place] % (Auto) 13.0 H Eos % (Auto) 1.0 Baso % (Auto) 0.0 Neut # (Auto) 2.8 Lymph # (Auto) 1.6 [place] # (Auto) 0.6 Eos # (Auto) 0.1 Baso # (Auto) 0.0 PT INR APTT Sodium 138 Potassium 3.4 L Chloride 108 H Carbon Dioxide 23 Anion Gap 10 BUN 13 Creatinine 1.0 Est GFR ( Amer) > 60 Est GFR (Non-Af Amer) > 60 POC Glucose (mg/dL) 94 Random Glucose 91 Calcium 8.1 L Phosphorus 2.6 Magnesium 1.9 Total Bilirubin 0.7 AST 22 ALT 23 Alkaline Phosphatase 43 Troponin I Total Protein 5.4 L Albumin 3.1 L D Globulin 2.2 Albumin/Globulin Ratio 1.4 Urine Color Urine Clarity Urine pH Ur Specific [place] Urine Protein Urine Glucose (UA) Urine Ketones Urine Blood Urine Nitrate Urine Bilirubin Urine Urobilinogen Ur Leukocyte Esterase Urine WBC (Auto) Urine RBC (Auto) Stool Occult Blood 07/01/18 07/01/18 07/01/18 06:17 07:13 11:23 WBC RBC Hgb Hct MCV MCH MCHC RDW Plt Count MPV Neut % (Auto) Lymph % (Auto) [place] % (Auto) Eos % (Auto) Baso % (Auto) Neut # (Auto) Lymph # (Auto) [place] # (Auto) Eos # (Auto) Baso # (Auto) PT 38.6 H D INR 3.5 H* APTT 43 H D Sodium Potassium Chloride Carbon Dioxide Anion Gap BUN Creatinine Est GFR ( Amer) Est GFR (Non-Af Amer) POC Glucose (mg/dL) 257 H Random Glucose Calcium Phosphorus Magnesium Total Bilirubin AST ALT Alkaline Phosphatase Troponin I Total Protein Albumin Globulin Albumin/Globulin Ratio Urine Color Urine Clarity Urine pH Ur Specific [place] Urine Protein Urine Glucose (UA) Urine Ketones Urine Blood Urine Nitrate Urine Bilirubin Urine Urobilinogen Ur Leukocyte Esterase Urine WBC (Auto) Urine RBC (Auto) Stool Occult Blood Positive H Attending/Attestation - Attestation I have personally seen and examined this patient.: Yes I have fully participated in the care of the patient.: Yes I have reviewed all pertinent clinical information: Yes Notes (Text): 07/01/18 11:55 I have seen and examined patient with GI fellow. Agree with above documentation with the following additions. In brief, this is an 82 year old male with history of HTN, hyperlipidemia, DVT s/p IVC filter on coumadin, who presents to hospital with complaint of persistent diarrhea. He reports symptoms that began suddenly 10 days ago and went to ER, treated for suspected gastroenteritis with course of antibiotic therapy. Despite medication, he continues to report multiple (up to 4) loose, non-bloody bowel movements daily associated with mild RLQ abdominal pain. He denies nausea, vomiting, fever/chills, weight loss, rectal bleeding, sick contacts, travel, or unusual food consumption. He claims to have had a colonoscopy 3 years ago which was normal as per patient. HTN Hyperlipidemia DVT s/p IVC filter on coumadin Diarrhea CT imaging reviewed by me showing left sided colitis - Liquid diet as tolerated - Obtain stool studies (culture, c-difficile, giardia) - Continue with antibiotic therapy - Will continue to monitor patient clinical course
[2018-07-01] MEDS: metroNIDAZOLE IV 500 mg/100 ml 500 MG/100 ML BAG IVPB SCH ×3 (08:58→23:49)
[2018-07-01] MEDS ORDERED: Potassium Chloride 20 mEq ER Tab PO ONE (09:10)
[2018-07-01] MEDS: Ciprofloxacin 400mg/200ml D5W 400 MG/200 ML BAG IVPB SCH ×2 (10:00→21:39)
[2018-07-01 10:18] LABS: EOS # 0.1 K/uL (0.0-0.7); LYMPH # 1.6 K/uL (1.0-4.3); MONO # 0.6 K/uL (0.0-0.8); NEUT # 2.8 K/uL (1.8-7.0)
[2018-07-01] MEDS ORDERED: Simethicone 80 mg Chewtab PO ONE (11:05)
[2018-07-01] MEDS: Sodium Chloride 0.45% 1,000 ML IV SCH ×2 (11:29→20:11)
--- NOTE | 2018-07-01 12:20 | CT ---
Date of service: 06/30/2018 PROCEDURE: CT Abdomen and Pelvis with contrast HISTORY: ABD discomfort and diarrhea COMPARISON: 09/23/2017 TECHNIQUE: Contrast dose: Radiation dose: Total exam DLP = 1066.37 mGy-cm. This CT exam was performed using one or more of the following dose reduction techniques: Automated exposure control, adjustment of the mA and/or kV according to patient size, and/or use of iterative reconstruction technique. FINDINGS: LOWER THORAX: Unremarkable. LIVER: Unremarkable. No gross lesion or ductal dilatation. GALLBLADDER AND BILE DUCTS: Cholecystectomy. PANCREAS: Unremarkable. No gross lesion or ductal dilatation. SPLEEN: Unremarkable. ADRENALS: Unremarkable. No mass. KIDNEYS AND URETERS: Unremarkable. No hydronephrosis. No solid mass. VASCULATURE: Unremarkable. No aortic aneurysm. No aortic atherosclerotic calcification or mural plaque present. BOWEL: Unremarkable. No obstruction. No gross mural thickening. APPENDIX: Normal appendix. PERITONEUM: Unremarkable. No free fluid. No free air. LYMPH NODES: Unremarkable. No enlarged lymph nodes. BLADDER: Unremarkable. REPRODUCTIVE: Prostate enlargement. BONES: No acute fracture. OTHER FINDINGS: IVC filter. IMPRESSION: No significant interval change. No acute pathology.
--- NOTE | 2018-07-01 20:28 | CARD ---
APPROVED REPORT Date of service: 06/30/2018 EKG Measurement Heart [id number] <Conclusion> Sinus bradycardia Left axis deviation Right bundle branch block Inferior infarct, age undetermined Abnormal ECG
[2018-07-02] MEDS: Sodium Chloride 0.45% 1,000 ML IV SCH ×2 (01:46→06:41)
--- NOTE | 2018-07-02 07:14 | CP.PCM.PN ---
<Edward Domingo - Last Filed: 07/02/18 09:22> Subjective - Date & Time of Evaluation Date of Evaluation: 07/02/18 Time of Evaluation: 07:00 - Subjective Subjective: PGY5 GI Follow-up Pt seen and examined bedside Denies any abd pain +Bloating, and gassy Tolerating diet reports x3 BM formed soft, no blood ROS: 12 point ROS conducted, neg other than above Objective - Vital Signs/Intake and Output Vital Signs (last 24 hours): Temp Pulse Resp BP Pulse Ox 97.3 F L 50 L 20 173/68 H 98 07/01/18 23:38 07/01/18 23:38 07/01/18 23:38 07/01/18 23:38 07/01/18 23:38 Intake and Output: 07/02/18 07/02/18 06:59 18:59 Intake Total 2120 Balance 2120 - Medications Medications: Current Medications Carvedilol (Coreg) 6.25 mg PO BID [facility] Last Admin: 07/01/18 10:36 Dose: Not Given Dextrose (Dextrose 50% Inj) 0 ml IV STAT PRN; Protocol PRN Reason: Hypoglycemia Protocol Dextrose (Glutose 15) 0 gm PO ONCE PRN; Protocol PRN Reason: Hypoglycemia Protocol Famotidine (Pepcid) 20 mg PO DAILY [facility] Last Admin: 07/01/18 10:33 Dose: 20 mg Glucagon (Glucagen Diagnostic Kit) 0 mg IM STAT PRN; Protocol PRN Reason: Hypoglycemia Protocol Dextrose (Dextrose 5% In Water 1000 Ml) 1,000 mls @ 0 mls/hr IV .Q0M PRN; Protocol PRN Reason: Hypoglycemia Protocol Ciprofloxacin (Cipro 400mg/200ml Dsw) 400 mg in 200 mls @ 133 mls/hr IVPB Q12H [facility]; Protocol Last Admin: 07/01/18 21:39 Dose: 133 mls/hr Metronidazole (Flagyl) 500 mg in 100 mls @ 100 mls/hr IVPB Q8H [facility]; Protocol Last Admin: 07/01/18 23:49 Dose: 100 mls/hr Sodium Chloride (Sodium Chloride 0.45%) 1,000 mls @ 100 mls/hr IV .Q10H [facility] Last Admin: 07/02/18 06:41 Dose: Not Given Insulin Aspart (Novolog) 0 unit SC ACHS [facility]; Protocol Last Admin: 07/01/18 21:25 Dose: Not Given Lorazepam (Ativan) 0.25 mg IVP Q12H PRN PRN Reason: Anxiety Ondansetron HCl (Zofran Inj) 4 mg IVP Q6H PRN PRN Reason: Nausea/Vomiting - Labs Labs: 07/01/18 06:17 07/01/18 06:17 PT 38.6 SECONDS (9.7-12.2) H D 07/01/18 06:17 INR 3.5 H* 07/01/18 06:17 APTT 43 SECONDS (21-34) H D 07/01/18 06:17 - Constitutional Appears: Non-toxic, No Acute Distress - Head Exam Head Exam: ATRAUMATIC, NORMOCEPHALIC - Eye Exam Eye Exam: Normal appearance - ENT Exam ENT Exam: Mucous Membranes Moist, Normal Exam - Neck Exam Neck Exam: Normal Inspection - Respiratory Exam Respiratory Exam: Clear to Ausculation Bilateral, NORMAL BREATHING PATTERN. absent: Rales, Rhonchi, Wheezes, Respiratory Distress - Cardiovascular Exam Cardiovascular Exam: REGULAR RHYTHM, +S1, +S2 - GI/Abdominal Exam GI & Abdominal Exam: Distended, Soft, Normal Bowel Sounds. absent: Firm, Guarding, Rigid, Tenderness, Mass, Organomegaly Additional comments: tympanic, distended - Extremities Exam Extremities Exam: absent: Joint Swelling, Pedal Edema - Neurological Exam Neurological Exam: Alert, Awake, Oriented x3 - Psychiatric Exam Psychiatric exam: Normal Affect, Normal Mood - Skin Skin Exam: Dry, Intact, Normal Color, Warm Assessment and Plan - Assessment and Plan (Free Text) Assessment: 82 year old male w/ PMHx of chronic DVTs, HTN, ankylosing sponylitis, BPH, presents to ED for persistent diarrhea/loose stools/abdominal pain Left sided colitis; ddx: infectous, malignancy; IBD, polyp Diarrhea; likely 2/2 above Hx of Ankylosing sponylitis Chronic DVTs Plan: -c.iff neg; cx, O&V, giarda pending -continue cipro and flagyl IV -continue IV fluids -continue diet as tolerated -zofran for nausea PRN -rest of care as per primary team -recommend f/u colonoscopy as an oupt, 6-8 weeks post inflammation D/W Dr. Cope <Myles Cope - Last Filed: 07/02/18 10:02> Objective - Vital Signs/Intake and Output Vital Signs (last 24 hours): Temp Pulse Resp BP Pulse Ox 98.1 F 60 20 170/73 H 96 07/02/18 07:54 07/02/18 07:54 07/02/18 07:54 07/02/18 07:54 07/02/18 07:54 Intake and Output: 07/02/18 07/02/18 06:59 18:59 Intake Total 0 Balance 2120 - Medications Medications: Current Medications Carvedilol (Coreg) 6.25 mg PO BID [facility] Last Admin: 07/01/18 10:36 Dose: Not Given Dextrose (Dextrose 50% Inj) 0 ml IV STAT PRN; Protocol PRN Reason: Hypoglycemia Protocol Dextrose (Glutose 15) 0 gm PO ONCE PRN; Protocol PRN Reason: Hypoglycemia Protocol Famotidine (Pepcid) 20 mg PO DAILY [facility] Last Admin: 07/01/18 10:33 Dose: 20 mg Glucagon (Glucagen Diagnostic Kit) 0 mg IM STAT PRN; Protocol PRN Reason: Hypoglycemia Protocol Dextrose (Dextrose 5% In Water 1000 Ml) 1,000 mls @ 0 mls/hr IV .Q0M PRN; Protocol PRN Reason: Hypoglycemia Protocol Ciprofloxacin (Cipro 400mg/200ml Dsw) 400 mg in 200 mls @ 133 mls/hr IVPB Q12H [facility]; Protocol Last Admin: 07/01/18 21:39 Dose: 133 mls/hr Metronidazole (Flagyl) 500 mg in 100 mls @ 100 mls/hr IVPB Q8H [facility]; Protocol Last Admin: 07/02/18 08:10 Dose: 100 mls/hr Sodium Chloride (Sodium Chloride 0.45%) 1,000 mls @ 100 mls/hr IV .Q10H [facility] Last Admin: 07/02/18 06:41 Dose: Not Given Insulin Aspart (Novolog) 0 unit SC ACHS [facility]; Protocol Last Admin: 07/02/18 07:58 Dose: Not Given Lisinopril (Zestril) 5 mg PO DAILY [facility] Lorazepam (Ativan) 0.25 mg IVP Q12H PRN PRN Reason: Anxiety Ondansetron HCl (Zofran Inj) 4 mg IVP Q6H PRN PRN Reason: Nausea/Vomiting Simethicone (Mylicon Chew Tab) 80 mg PO Q12H PRN PRN Reason: GI distress - Labs Labs: 07/02/18 07:04 07/02/18 07:04 PT 34.1 SECONDS (9.7-12.2) H 07/02/18 07:04 INR 3.1 H* 07/02/18 07:04 APTT 40 SECONDS (21-34) H 07/02/18 07:04 Attending/Attestation - Attestation I have personally seen and examined this patient.: Yes I have fully participated in the care of the patient.: Yes I have reviewed all pertinent clinical information, including history, physical exam and plan: Yes Notes (Text): 07/02/18 09:59 I have seen and examined patient with GI fellow. No acute events overnight, he is seen resting in bed comfortably eating breakfast. He reports increased belching and flatulence but otherwise denies abdominal pain, nausea, vomiting, fever/chills. He had two soft bowel movements yesterday. DVT on coumadin HTN BPH Colitis, presumed infectious etiology - Advance diet as tolerated - Continue with antibiotic therapy to complete 10 day course - Follow up stool studies - From GI standpoint if patient tolerating PO diet, ok to discharge home with subsequent outpatient follow up. Patient would benefit from outpatient elective colonoscopy 6-8 weeks following resolution of symptoms. Will sign off case, please reconsult as necessary, thank you.
[2018-07-02 07:16] LABS: BASO % 0.3 % (0.0-2.0); EOS # 0.3 K/uL (0.0-0.7); EOS % 5.5 % (0.0-4.0); HEMOGLOBIN 13.6 g/dL (12.0-18.0); LYMPH # 1.2 K/uL (1.0-4.3); LYMPH % 18.9 % (20.0-40.0); MEAN CELL VOLUME 88.8 fL (80.0-94.0); MEAN CORPUSCULAR HEMOGLOBIN 30.3 pg (27.0-31.0); MEAN CORPUSCULAR HGB CONC 34.1 g/dL (33.0-37.0); MEAN PLATELET VOLUME 8.2 fL (7.2-11.7); MONO # 0.7 K/uL (0.0-0.8); NEUT % 64.3 % (50.0-75.0); RBC 4.47 Mil/uL (4.40-5.90); RED CELL DISTRIBUTION WIDTH 15.1 % (11.5-14.5); WHITE BLOOD COUNT 6.2 K/uL (4.8-10.8)
[2018-07-02 07:53] LABS: ALB/GLOB RATIO 1.4 (1.0-2.1); ALBUMIN 3.3 g/dL (3.5-5.0); ALT/SGPT 22 U/L (21-72); AST/SGOT 23 U/L (17-59); BLOOD UREA NITROGEN 10 mg/dL (9-20); CALCIUM 8.6 mg/dl (8.6-10.4); GFR NON-AFRICAN AMERICAN > 60
[2018-07-02] MEDS: (Novolog) Insulin Aspart, Recombinant 100 u/ml 10 ml vial SC SCH ×4 (07:58→21:19)
[2018-07-02 08:03] LABS: PROTHROMBIN TIME 34.1 SECONDS (9.7-12.2)
[2018-07-02 08:04] LABS: INR 3.1
[2018-07-02] MEDS: metroNIDAZOLE IV 500 mg/100 ml 500 MG/100 ML BAG IVPB SCH ×2 (08:10→16:01)
--- NOTE | 2018-07-02 09:00 | CP.PCM.PN ---
<Mahesh Murphy M - Last Filed: 07/02/18 14:20> Subjective - Date & Time of Evaluation Date of Evaluation: 07/02/18 Time of Evaluation: 07:35 - Subjective Subjective: Medicine progress note for hospitalist Dr. Concepcion. Patient seen and examined at bedside. Patient reports having no diarrhea/ loose bowel movements today. Patient reports feeling much better, only having small amounts of pain in the subxypoid area. Denies chest pain, SOB, headaches, vision changes. Objective - Vital Signs/Intake and Output Vital Signs (last 24 hours): Temp Pulse Resp BP Pulse Ox 98.1 F 60 20 170/73 H 96 07/02/18 07:54 07/02/18 07:54 07/02/18 07:54 07/02/18 07:54 07/02/18 07:54 Intake and Output: 07/02/18 07/02/18 06:59 18:59 Intake Total 2120 Balance 2120 - Medications Medications: Current Medications Carvedilol (Coreg) 6.25 mg PO BID [facility] Last Admin: 07/01/18 10:36 Dose: Not Given Dextrose (Dextrose 50% Inj) 0 ml IV STAT PRN; Protocol PRN Reason: Hypoglycemia Protocol Dextrose (Glutose 15) 0 gm PO ONCE PRN; Protocol PRN Reason: Hypoglycemia Protocol Famotidine (Pepcid) 20 mg PO DAILY [facility] Last Admin: 07/01/18 10:33 Dose: 20 mg Glucagon (Glucagen Diagnostic Kit) 0 mg IM STAT PRN; Protocol PRN Reason: Hypoglycemia Protocol Dextrose (Dextrose 5% In Water 1000 Ml) 1,000 mls @ 0 mls/hr IV .Q0M PRN; Protocol PRN Reason: Hypoglycemia Protocol Ciprofloxacin (Cipro 400mg/200ml Dsw) 400 mg in 200 mls @ 133 mls/hr IVPB Q12H [facility]; Protocol Last Admin: 07/01/18 21:39 Dose: 133 mls/hr Metronidazole (Flagyl) 500 mg in 100 mls @ 100 mls/hr IVPB Q8H [facility]; Protocol Last Admin: 07/02/18 08:10 Dose: 100 mls/hr Sodium Chloride (Sodium Chloride 0.45%) 1,000 mls @ 100 mls/hr IV .Q10H [facility] Last Admin: 07/02/18 06:41 Dose: Not Given Insulin Aspart (Novolog) 0 unit SC ACHS [facility]; Protocol Last Admin: 07/02/18 07:58 Dose: Not Given Lisinopril (Zestril) 10 mg PO DAILY [facility] Last Admin: 07/02/18 08:10 Dose: 10 mg Lorazepam (Ativan) 0.25 mg IVP Q12H PRN PRN Reason: Anxiety Ondansetron HCl (Zofran Inj) 4 mg IVP Q6H PRN PRN Reason: Nausea/Vomiting - Labs Labs: 07/02/18 07:04 07/02/18 07:04 PT 34.1 SECONDS (9.7-12.2) H 07/02/18 07:04 INR 3.1 H* 07/02/18 07:04 APTT 40 SECONDS (21-34) H 07/02/18 07:04 - Constitutional Appears: Non-toxic, No Acute Distress - Head Exam Head Exam: NORMAL INSPECTION - Eye Exam Eye Exam: EOMI, Normal appearance - ENT Exam ENT Exam: Mucous Membranes Moist - Respiratory Exam Respiratory Exam: Clear to Ausculation Bilateral, NORMAL BREATHING PATTERN. absent: Rhonchi, Wheezes - Cardiovascular Exam Cardiovascular Exam: +S1, +S2 - GI/Abdominal Exam GI & Abdominal Exam: Soft, Normal Bowel Sounds - Extremities Exam Extremities Exam: Full ROM, Pedal Edema Additional comments: trace pedal edema hyperpigmentation of lower extremities b/l consistent with PVD denies calf tenderness - Back Exam Back Exam: absent: CVA tenderness (L), CVA tenderness (R) - Neurological Exam Neurological Exam: Alert, Awake, Oriented x3 - Psychiatric Exam Psychiatric exam: Normal Affect, Normal Mood - Skin Skin Exam: Dry, Intact, Normal Color, Warm Assessment and Plan - Assessment and Plan (Free Text) Assessment: 82 year old male w/ PMHx of chronic DVTs, HTN, ankylosing sponylitis, BPH, presents to ED for persistent diarrhea/loose stools/abdominal pain Plan: Abdominal pain Loose stools/diarrhea Colitis - WBC wnl, no left shift, afebrile - CT abd/pelvis read: colitis of descending, sigmoid, rectosigmoid - CT abd/pelvis official read: no acute changes - stool occult positive - H/H stable wnl - F/u stool, ova studies - F/u GI consult, Dr. Anatoliy WHITESIDE - f/u outpatient 6-8 weeks for colonoscopy - Zofran 4mg Q6H - ciprofloxacin 400 mg IVPB Q12, flaggyl 500 mg IVPB Q8H Supratheraputic INR History of DVTs - initial INR 4.3; repeat 3.1 - has IVC filter in place - Dopplers: chronic deep vein thrombosis of right vein & popiteal veins - hold coumadin for now due to INR - will repeat INR in AM Hypertension - BP persistently elevated - home medication co-reg held 2/2 to HR in 60s - lisinopril 10 mg given today due to initial fluids - fluids d/c'ed today 07/02 - lisinopril 5 mg starting tomorrow 07/03 - d/c'ed fluids 07/02 History of BPH - per prelim CT abd/pelvsis, enlarged prostate, no distended bladder - pt reports no issues urinating, will continue to monitor - taken flomax in May History of diabetes - Hold home medication metformin 500 ER i evenimg, januvia 100 mg daily - ISS ACHS - Accuchecks ACHS - Hypoglycemia protocol History of ankylosing spondylitis - chronic History of hyperlipidia - continue home crestor 5 mg daily History of anxiety - uses ativan 1mg at night time - will monitor, give 0.25 mg IVP Q12H PRN - through course, patient has not required ativan at home Dizziness - Resolved - orthostatics BP stable sitting/standing, increase HR by 20 from sitting to standing - troponin x 1 negative - denies chest pain - etiologies include, but not limited to Dehydration, PE, intracranial lesion - due to denial of recent trauma, and surpratheraputic PE, likely dehydration - 1/2 NS @ 100 cc/hr - will monitor for improvement Ppx - DVT: Heparin contraindicated 2/2 supratheraputic INR - GI: not indicated - PT recs: home w/ services Disp: Will require GI follow up in 6-8 weeks for colonoscopy. Will need 10 day course of flaggyl and cipro. Will need follow up with primary for INR/coumadin dosing & HTN. Will d/c with 5 mg lisinopril along with antibiotics/probiotics. <Mahamed Concepcion - Last Filed: 07/02/18 15:50> Objective - Vital Signs/Intake and Output Vital Signs (last 24 hours): Temp Pulse Resp BP Pulse Ox 97.5 F L 56 L 20 148/63 96 07/02/18 15:00 07/02/18 15:00 07/02/18 15:00 07/02/18 15:00 07/02/18 15:00 Intake and Output: 07/02/18 07/02/18 06:59 18:59 Intake Total 2120 880 Balance 2120 880 - Medications Medications: Current Medications Carvedilol (Coreg) 6.25 mg PO BID [facility] Last Admin: 07/01/18 10:36 Dose: Not Given Dextrose (Dextrose 50% Inj) 0 ml IV STAT PRN; Protocol PRN Reason: Hypoglycemia Protocol Dextrose (Glutose 15) 0 gm PO ONCE PRN; Protocol PRN Reason: Hypoglycemia Protocol Famotidine (Pepcid) 20 mg PO DAILY [facility] Last Admin: 07/02/18 10:23 Dose: 20 mg Glucagon (Glucagen Diagnostic Kit) 0 mg IM STAT PRN; Protocol PRN Reason: Hypoglycemia Protocol Dextrose (Dextrose 5% In Water 1000 Ml) 1,000 mls @ 0 mls/hr IV .Q0M PRN; Protocol PRN Reason: Hypoglycemia Protocol Ciprofloxacin (Cipro 400mg/200ml Dsw) 400 mg in 200 mls @ 133 mls/hr IVPB Q12H [facility]; Protocol Last Admin: 07/02/18 10:00 Dose: 133 mls/hr Metronidazole (Flagyl) 500 mg in 100 mls @ 100 mls/hr IVPB Q8H [facility]; Protocol Last Admin: 07/02/18 08:10 Dose: 100 mls/hr Insulin Aspart (Novolog) 0 unit SC ACHS [facility]; Protocol Last Admin: 07/02/18 12:32 Dose: 2 units Lisinopril (Zestril) 5 mg PO DAILY [facility] Lorazepam (Ativan) 0.25 mg IVP Q12H PRN PRN Reason: Anxiety Ondansetron HCl (Zofran Inj) 4 mg IVP Q6H PRN PRN Reason: Nausea/Vomiting Rosuvastatin Calcium (Crestor) 5 mg PO HS [facility] Saccharomyces Boulardii (Florastor) 250 mg PO BID [facility] Simethicone (Mylicon Chew Tab) 80 mg PO Q12H PRN PRN Reason: GI distress - Labs Labs: 07/02/18 07:04 07/02/18 07:04 PT 34.1 SECONDS (9.7-12.2) H 07/02/18 07:04 INR 3.1 H* 07/02/18 07:04 APTT 40 SECONDS (21-34) H 07/02/18 07:04 Attending/Attestation - Attestation I have personally seen and examined this patient.: Yes I have fully participated in the care of the patient.: Yes I have reviewed all pertinent clinical information, including history, physical exam and plan: Yes Notes (Text): 07/02/18 15:47 Medical attending: Patient was seen and examined by me. Agree with the above note by the resident Patient explained he felt much better now. He has been on the Cipro and Flagyl IV He also tolerated his diet as well. The patient CBC is stable and he explains that the diarrhea has resolved as well. We explained to the patient that if he does ok overnight then we will consider discharging the patient with PO abx Mahamed Concepcion
[2018-07-02] MEDS ORDERED: Simethicone 80 mg Chewtab PO PRN (09:58)
[2018-07-02] MEDS: Ciprofloxacin 400mg/200ml D5W 400 MG/200 ML BAG IVPB SCH ×2 (10:00→21:23)
--- NOTE | 2018-07-02 13:49 | VASCLAB ---
Date of service: 06/30/2018 PROCEDURE: Right Lower Extremity Venous Duplex Exam. HISTORY: RLE pain, hx of DVT PRIORS: Prior exam on 11/13/2017. TECHNIQUE: Right common femoral, femoral, popliteal and posterior tibial, peroneal and great saphenous veins were evaluated. Flow was assessed with color Doppler, compressibility, assessment of phasic flow and augmentation response. Report prepared by MANUELA Castro FINDINGS: RIGHT: 1. Common Femoral Vein: 1.1. Compressibility - Fully compressible: Thrombus - None: Flow - Phasic: Augmentation -Normal: Reflux - None. 2. Femoral Vein: 2.1. Compressibility - Partial: Thrombus - Chronic: Flow - Reduced 3. Popliteal Vein: 3.1. Compressibility - Incompressible: Thrombus - Chronic: Flow - Phasic: Reflux - Severe 3.62s 4. Posterior Tibial Vein: 4.1. Compressibility - Fully compressible: Thrombus - None: Flow - Phasic: Augmentation -Normal: Reflux - None. 5. Peroneal Vein: 5.1. Unable to image due to swelling. 6. Great Saphenous Vein: 6.1. Compressibility - Fully compressible: Thrombus -None: Flow - Phasic: Augmentation - Normal: Reflux - None. OTHER FINDINGS: Normal venous flow noted in the LEFT common femoral vein. IMPRESSION: Partial chronic deep vein thrombosis of the right femoral and popliteal veins. 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
[2018-07-02] MEDS: Saccharomyces Boulardi 250 mg Cap PO SCH (17:02)
[2018-07-03] MEDS: metroNIDAZOLE IV 500 mg/100 ml 500 MG/100 ML BAG IVPB SCH (00:14)
[2018-07-03 07:38] VITALS: BP 152/65; PULSE 55; TEMP 97.6; O2SAT 94
[2018-07-03 07:46] LABS: BASO % 0.4 % (0.0-2.0); EOS # 0.4 K/uL (0.0-0.7); EOS % 6.4 % (0.0-4.0); HEMOGLOBIN 12.9 g/dL (12.0-18.0); LYMPH # 1.2 K/uL (1.0-4.3); LYMPH % 19.8 % (20.0-40.0); MEAN CELL VOLUME 88.8 fL (80.0-94.0); MEAN CORPUSCULAR HEMOGLOBIN 30.4 pg (27.0-31.0); MEAN CORPUSCULAR HGB CONC 34.3 g/dL (33.0-37.0); MEAN PLATELET VOLUME 8.2 fL (7.2-11.7); MONO # 0.7 K/uL (0.0-0.8); MONO % 10.8 % (0.0-10.0); NEUT # 3.9 K/uL (1.8-7.0); NEUT % 62.6 % (50.0-75.0); RBC 4.23 Mil/uL (4.40-5.90); RED CELL DISTRIBUTION WIDTH 15.3 % (11.5-14.5); WHITE BLOOD COUNT 6.2 K/uL (4.8-10.8)
[2018-07-03 08:05] LABS: ALB/GLOB RATIO 1.4 (1.0-2.1); ALBUMIN 3.1 g/dL (3.5-5.0); ALT/SGPT 13 U/L (21-72); AST/SGOT 17 U/L (17-59); BLOOD UREA NITROGEN 17 mg/dL (9-20); CALCIUM 8.4 mg/dl (8.6-10.4); GFR NON-AFRICAN AMERICAN > 60; INR 2.4; PROTHROMBIN TIME 26.2 SECONDS (9.7-12.2)
[2018-07-03] MEDS: (Novolog) Insulin Aspart, Recombinant 100 u/ml 10 ml vial SC SCH ×2 (11:19→12:17)
[2018-07-03] MEDS: Saccharomyces Boulardi 250 mg Cap PO SCH (11:26)
--- NOTE | 2018-07-03 11:32 | CP.PCM.DIS ---
<Adan Glaser - Last Filed: 07/03/18 20:01> Provider - Provider Date of Admission: 06/30/18 15:53 Attending physician: Mahamed Concepcion DO Time Spent in preparation of Discharge (in minutes): 180 Diagnosis - Discharge Diagnosis (1) Colitis Status: Acute (2) BPH (benign prostatic hyperplasia) Status: Chronic (3) History of DVT (deep vein thrombosis) Status: Chronic (4) History of hyperlipidemia Status: Chronic (5) Hypertension Status: Chronic Hospital Course - Lab Results Lab Results: Micro Results 07/01/18 07:13 Stool Stool Culture - Final NO SALMONELLA, SHIGELLA OR CAMPYLOBACTER ISOLATED. 07/01/18 07:13 Stool Ova and Parasite Concentrate Exam - Final Most Recent Lab Values WBC 6.2 K/uL (4.8-10.8) 07/03/18 07:30 RBC 4.23 Mil/uL (4.40-5.90) L 07/03/18 07:30 Hgb 12.9 g/dL (12.0-18.0) 07/03/18 07:30 Hct 37.6 % (35.0-51.0) 07/03/18 07:30 MCV 88.8 fL (80.0-94.0) 07/03/18 07:30 MCH 30.4 pg (27.0-31.0) 07/03/18 07:30 MCHC 34.3 g/dL (33.0-37.0) 07/03/18 07:30 RDW 15.3 % (11.5-14.5) H 07/03/18 07:30 Plt Count 171 K/uL (130-400) 07/03/18 07:30 MPV 8.2 fL (7.2-11.7) 07/03/18 07:30 Neut % (Auto) 62.6 % (50.0-75.0) 07/03/18 07:30 Lymph % (Auto) 19.8 % (20.0-40.0) L 07/03/18 07:30 [place] % (Auto) 10.8 % (0.0-10.0) H 07/03/18 07:30 Eos % (Auto) 6.4 % (0.0-4.0) H 07/03/18 07:30 Baso % (Auto) 0.4 % (0.0-2.0) 07/03/18 07:30 Neut # (Auto) 3.9 K/uL (1.8-7.0) 07/03/18 07:30 Lymph # (Auto) 1.2 K/uL (1.0-4.3) 07/03/18 07:30 [place] # (Auto) 0.7 K/uL (0.0-0.8) 07/03/18 07:30 Eos # (Auto) 0.4 K/uL (0.0-0.7) 07/03/18 07:30 Baso # (Auto) 0.0 K/uL (0.0-0.2) 07/03/18 07:30 PT 26.2 SECONDS (9.7-12.2) H D 07/03/18 07:30 INR 2.4 D 07/03/18 07:30 APTT 38 SECONDS (21-34) H 07/03/18 07:30 Sodium 137 mmol/L (132-148) 07/03/18 07:30 Potassium 4.1 mmol/L (3.6-5.2) 07/03/18 07:30 Chloride 104 mmol/L (98-107) 07/03/18 07:30 Carbon Dioxide 27 mmol/L (22-30) 07/03/18 07:30 Anion Gap 10 (10-20) 07/03/18 07:30 BUN 17 mg/dL (9-20) 07/03/18 07:30 Creatinine 1.1 mg/dL (0.8-1.5) 07/03/18 07:30 Est GFR ( Amer) > 60 07/03/18 07:30 Est GFR (Non-Af Amer) > 60 07/03/18 07:30 POC Glucose (mg/dL) 107 mg/dL (65-110) 07/03/18 07:55 Random Glucose 111 mg/dL (75-110) H 07/03/18 07:30 Calcium 8.4 mg/dl (8.6-10.4) L 07/03/18 07:30 Phosphorus 3.1 mg/dL (2.5-4.5) 07/03/18 07:30 Magnesium 2.1 mg/dL (1.6-2.3) 07/03/18 07:30 Total Bilirubin 0.5 mg/dL (0.2-1.3) 07/03/18 07:30 AST 17 U/L (17-59) D 07/03/18 07:30 ALT 13 U/L (21-72) L D 07/03/18 07:30 Alkaline Phosphatase 42 U/L (38-126) 07/03/18 07:30 Troponin I < 0.0120 ng/mL (0.00-0.120) 06/30/18 16:23 Total Protein 5.3 g/dL (6.3-8.3) L 07/03/18 07:30 Albumin 3.1 g/dL (3.5-5.0) L 07/03/18 07:30 Globulin 2.2 gm/dL (2.2-3.9) 07/03/18 07:30 Albumin/Globulin Ratio 1.4 (1.0-2.1) 07/03/18 07:30 Urine Color Yellow (YELLOW) 06/30/18 16:34 Urine Clarity Clear (Clear) 06/30/18 16:34 Urine pH 6.0 (5.0-8.0) 06/30/18 16:34 Ur Specific Elizabeth >= 1.030 (1.003-1.030) 06/30/18 16:34 Urine Protein Negative mg/dL (NEGATIVE) 06/30/18 16:34 Urine Glucose (UA) Negative mg/dL (Normal) 06/30/18 16:34 Urine Ketones Negative mg/dL (NEGATIVE) 06/30/18 16:34 Urine Blood Small (NEGATIVE) 06/30/18 16:34 Urine Nitrate Negative (NEGATIVE) 06/30/18 16:34 Urine Bilirubin Negative (NEGATIVE) 06/30/18 16:34 Urine Urobilinogen 0.2 mg/dL (0.2-1.0) 06/30/18 16:34 Ur Leukocyte Esterase Negative Bruce/uL (Negative) 06/30/18 16:34 Urine WBC (Auto) < 1 /hpf (0-5) 06/30/18 16:34 Urine RBC (Auto) 2 /hpf (0-3) 06/30/18 16:34 Stool Occult Blood Positive (NEGATIVE) H 07/01/18 07:13 C. 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 Patient was seen in in ED approximately 9 days prior and was given abx for possible gastroenteritis. Patient states he took the antibiotics but has persistently had loose stools/ diarrhea (approximately 3-4 per day). Additionally patient reports abdominal pain over the umbilical area that is non radiating, 5/10, intermittent pain, described as crampy. Patient has associated chills and nausea, but no fevers, vomiting blood in stool. Patient also reports having b/l LE edema & back pain for several years. Denies recent travel and sick contacts. On hospitalization: Patient admitted for evaluation of persistent diarrhea/loose stools/abdominal pain. CT abd/pelvis shows colitis of descending, sigmoid, rectosigmoid, stool occult positive, no leukocytosis, no left shift, vitals within normal limits on admission. H/H stable. Abx treatment provided with cipro and flagyl. Dr Anatoliy MANZANO consulted, ordered stool studies, negative stool and ova and parasite, negatice c.diff, diet as tolerated. INR noticed to be in supratherapeutic levels on admission, coumadin held, LE b/l dopplers show chronic deep vein thrombosis of right vein & popiteal veins. BP elevated, low HRs, home med coreg held, lisinopril added. hx of hyperlipidemia managed with crestor. On discharge: the following instruction were given to patient at discharge Patient is stable for discharge per Dr Concepcion Please start lisinopril 5 mg, 1 tablet, per mouth, daily for blood pressure control. Please start taking flagyl 500 mg, 1 tablet, per mouth, 3 times daily for diarrhea for 2 days. Please start taking ciprofloxacin 250mg, 1 tablet, per mouth, 2 times daily for diarrhea for 2 days. Please start taking florastor, 1 tablet, per mouth, 2 times daily for 30 days. Please start taking warfarin 2.5mg, 1 tablet per mouth daily. Stop taking previo us dose warfarin 5mg. Please stop taking co-reg 6.25 mg, 1 tablet, per mouth twice daily as previously prescribed. Please stop taking ativan 1mg, 1 tablet, per mouth twice daily as previously prescribed. Please continue taking your pepcid 20 mg, 1 tablet, per mouth, daily, as prescribed. Please continue taking your crestor 5 mg, 1 tablet, per mouth, daily, as prescribed. Please follow up within 3 days upon discharge with primary doctor, Dr. Lovett. As per physicial therapy, continue use walker and/or cane for mobility. Please follow up with GI, Dr. Cope in approximately 1 month. You will likely need a colonoscopy in 6-8 weeks per GI. If any of the symptoms return, please return to nearest medical facility. This is a short summary of patient hospitalization course. For more info, please refer to patient's EMR. - Date & Time of H&P Date of H&P: 06/30/18 Time of H&P: 16:56 Discharge Exam - Head Exam Head Exam: ATRAUMATIC, NORMOCEPHALIC - Eye Exam Eye Exam: EOMI, Normal appearance - ENT Exam ENT Exam: Mucous Membranes Moist - Neck Exam Neck exam: Full Rom - Respiratory Exam Respiratory Exam: Clear to PA & Lateral, UNREMARKABLE. absent: Rhonchi, Wheezes, Respiratory Distress - Cardiovascular Exam Cardiovascular Exam: REGULAR RHYTHM, +S1, +S2 - GI/Abdominal Exam GI & Abdominal Exam: Normal Bowel Sounds, Soft - Extremities Exam Extremities exam: full ROM, normal inspection - Neurological Exam Neurological exam: Alert, Oriented x3 - Psychiatric Exam Psychiatric exam: Normal Affect, Normal Mood - Skin Skin Exam: Dry, Intact, Normal Color, Warm Discharge Plan - Discharge Medications Prescriptions: Ciprofloxacin HCl [Cipro] 250 mg PO BID 2 Days #4 tablet Famotidine [Pepcid] 20 mg PO DAILY #30 tab Lisinopril [Zestril] 5 mg PO DAILY #30 tab Metronidazole [Flagyl] 500 mg PO TID 2 Days #6 tablet Saccharomyces Boulardi [Florastor] 250 mg PO BID 30 Days #60 cap Warfarin [Coumadin] 2.5 mg PO DAILY 14 Days #14 tab - Follow Up Plan Condition: STABLE Disposition: HOME/ ROUTINE Instructions: Ciprofloxacin (Systemic), High Blood Pressure (DC), Metronidazole (Systemic), Vitamin K Diet, Deep Vein Thrombosis (Blood Clots in the Legs) (DC), Warfarin, Gastroenteritis (DC) Additional Instructions: El paciente es estable para el dora por Dr Concepcion Por favor, comience a anabela lisinopril 5 mg, 1 tableta, por boca, diariamente para controlar la presin arterial. Comience a anabela flagyl 500 mg, 1 tableta, por boca, 3 veces al da para la diarrea farzaneh 2 sanchez. Comience a anabela ciprofloxacina 250 mg, 1 tableta, por boca, 2 veces al da por diarrea farzaneh 2 sanchez. Comience a anabela florastor, 1 tableta, por boca, 2 veces al da farzaneh 30 sanchez. Por favor comience a anabela warfarina 2.5 mg, 1 tableta por boca por da. Dejar de anabela la dosis anterior de 5 mg de warfarina. Deje de anabela Co-reg 6.25 mg, 1 tableta, por boca, dos veces al da, segn lo prescrito anteriormente. Por favor, deje de anabela 1 mg de ativan, 1 tableta, por boca dos veces al da segn lo prescrito anteriormente. Contine tomando doe pepcid 20 mg, 1 tableta, por boca, diariamente, segn lo prescrito. Contine tomando doe crestor 5 mg, 1 tableta, por boca, diariamente, segn lo prescrito. Realice un seguimiento dentro de los 3 sanchez posteriores al dora con el mdico johnston, el Dr. Lovett. la recomendacion de terapista fisico es que continue usando el andador o un baston para moverse. Por favor elpidio un seguimiento con GI, Dr. Cope en aproximadamente 1 mes. Es probable que necesite kamar colonoscopia en 6-8 semanas por GI. Si alguno de los sntomas regresa, por favor regrese al centro mdico ms paredes. Patient is stable for discharge per Dr Concepcion Please start lisinopril 5 mg, 1 tablet, per mouth, daily for blood pressure control. Please start taking flagyl 500 mg, 1 tablet, per mouth, 3 times daily for diarrhea for 2 days. Please start taking ciprofloxacin 250mg, 1 tablet, per mouth, 2 times daily for diarrhea for 2 days. Please start taking florastor, 1 tablet, per mouth, 2 times daily for 30 days. Please start taking warfarin 2.5mg, 1 tablet per mouth daily. Stop taking previous dose warfarin 5mg. Please stop taking co-reg 6.25 mg, 1 tablet, per mouth twice daily as previously prescribed. Please stop taking ativan 1mg, 1 tablet, per mouth twice daily as previously prescribed. Please continue taking your pepcid 20 mg, 1 tablet, per mouth, daily, as prescribed. Please continue taking your crestor 5 mg, 1 tablet, per mouth, daily, as prescribed. Please follow up within 3 days upon discharge with primary doctor, Dr. Lovett. As per physicial therapy, continue use walker and/or cane for mobility. Please follow up with GI, Dr. Cope in approximately 1 month. You will likely need a colonoscopy in 6-8 weeks per GI. If any of the symptoms return, please return to nearest medical facility. Referrals: Myles Cope MD [Staff Provider] - Maximino Fitzpatrick MD [Staff Provider] - <Mahamed Concepcion - Last Filed: 07/04/18 07:28> Provider - Provider Date of Admission: 06/30/18 15:53 Attending physician: Mahamed Concepcion, Hospital Course - Lab Results Lab Results: Micro Results 07/01/18 07:13 Stool Stool Culture - Final NO SALMONELLA, SHIGELLA OR CAMPYLOBACTER ISOLATED. 07/01/18 07:13 Stool Ova and Parasite Concentrate Exam - Final Most Recent Lab Values WBC 6.2 K/uL (4.8-10.8) 07/03/18 07:30 RBC 4.23 Mil/uL (4.40-5.90) L 07/03/18 07:30 Hgb 12.9 g/dL (12.0-18.0) 07/03/18 07:30 Hct 37.6 % (35.0-51.0) 07/03/18 07:30 MCV 88.8 fL (80.0-94.0) 07/03/18 07:30 MCH 30.4 pg (27.0-31.0) 07/03/18 07:30 MCHC 34.3 g/dL (33.0-37.0) 07/03/18 07:30 RDW 15.3 % (11.5-14.5) H 07/03/18 07:30 Plt Count 171 K/uL (130-400) 07/03/18 07:30 MPV 8.2 fL (7.2-11.7) 07/03/18 07:30 Neut % (Auto) 62.6 % (50.0-75.0) 07/03/18 07:30 Lymph % (Auto) 19.8 % (20.0-40.0) L 07/03/18 07:30 [place] % (Auto) 10.8 % (0.0-10.0) H 07/03/18 07:30 Eos % (Auto) 6.4 % (0.0-4.0) H 07/03/18 07:30 Baso % (Auto) 0.4 % (0.0-2.0) 07/03/18 07:30 Neut # (Auto) 3.9 K/uL (1.8-7.0) 07/03/18 07:30 Lymph # (Auto) 1.2 K/uL (1.0-4.3) 07/03/18 07:30 [place] # (Auto) 0.7 K/uL (0.0-0.8) 07/03/18 07:30 Eos # (Auto) 0.4 K/uL (0.0-0.7) 07/03/18 07:30 Baso # (Auto) 0.0 K/uL (0.0-0.2) 07/03/18 07:30 PT 26.2 SECONDS (9.7-12.2) H D 07/03/18 07:30 INR 2.4 D 07/03/18 07:30 APTT 38 SECONDS (21-34) H 07/03/18 07:30 Sodium 137 mmol/L (132-148) 07/03/18 07:30 Potassium 4.1 mmol/L (3.6-5.2) 07/03/18 07:30 Chloride 104 mmol/L (98-107) 07/03/18 07:30 Carbon Dioxide 27 mmol/L (22-30) 07/03/18 07:30 Anion Gap 10 (10-20) 07/03/18 07:30 BUN 17 mg/dL (9-20) 07/03/18 07:30 Creatinine 1.1 mg/dL (0.8-1.5) 07/03/18 07:30 Est GFR ( Amer) > 60 07/03/18 07:30 Est GFR (Non-Af Amer) > 60 07/03/18 07:30 POC Glucose (mg/dL) 123 mg/dL (65-110) H 07/03/18 11:59 Random Glucose 111 mg/dL (75-110) H 07/03/18 07:30 Calcium 8.4 mg/dl (8.6-10.4) L 07/03/18 07:30 Phosphorus 3.1 mg/dL (2.5-4.5) 07/03/18 07:30 Magnesium 2.1 mg/dL (1.6-2.3) 07/03/18 07:30 Total Bilirubin 0.5 mg/dL (0.2-1.3) 07/03/18 07:30 AST 17 U/L (17-59) D 07/03/18 07:30 ALT 13 U/L (21-72) L D 07/03/18 07:30 Alkaline Phosphatase 42 U/L (38-126) 07/03/18 07:30 Troponin I < 0.0120 ng/mL (0.00-0.120) 06/30/18 16:23 Total Protein 5.3 g/dL (6.3-8.3) L 07/03/18 07:30 Albumin 3.1 g/dL (3.5-5.0) L 07/03/18 07:30 Globulin 2.2 gm/dL (2.2-3.9) 07/03/18 07:30 Albumin/Globulin Ratio 1.4 (1.0-2.1) 07/03/18 07:30 Urine Color Yellow (YELLOW) 06/30/18 16:34 Urine Clarity Clear (Clear) 06/30/18 16:34 Urine pH 6.0 (5.0-8.0) 06/30/18 16:34 Ur Specific Elizabeth >= 1.030 (1.003-1.030) 06/30/18 16:34 Urine Protein Negative mg/dL (NEGATIVE) 06/30/18 16:34 Urine Glucose (UA) Negative mg/dL (Normal) 06/30/18 16:34 Urine Ketones Negative mg/dL (NEGATIVE) 06/30/18 16:34 Urine Blood Small (NEGATIVE) 06/30/18 16:34 Urine Nitrate Negative (NEGATIVE) 06/30/18 16:34 Urine Bilirubin Negative (NEGATIVE) 06/30/18 16:34 Urine Urobilinogen 0.2 mg/dL (0.2-1.0) 06/30/18 16:34 Ur Leukocyte Esterase Negative Bruce/uL (Negative) 06/30/18 16:34 Urine WBC (Auto) < 1 /hpf (0-5) 06/30/18 16:34 Urine RBC (Auto) 2 /hpf (0-3) 06/30/18 16:34 Stool Occult Blood Positive (NEGATIVE) H 07/01/18 07:13 C. difficile Ag & Toxin Negative (NEGATIVE) 07/01/18 07:13 Attending/Attestation - Attestation I have personally seen and examined this patient.: Yes I have fully participated in the care of the patient.: Yes I have reviewed all pertinent clinical information, including history, physical exam and plan: Yes Notes (Text): 07/04/18 07:24 Medical attending: Patient was seen and examined by me. Agree with the above note by the resident The patient is no longer having diarrhea. The patient is tolerating his diet as well For the time being he should continue taking the PO Cipro and the PO flagyl. Mahamed Concepcion
== END 2018-07-03 16:42 | disposition home or self-care (01) ==
LOC: C.ER 12:39 → C.3T 15:53 → C.9E 16:28 → C.3T 20:22
PROVIDERS: ADMIT Hospitalist; ATTEND Hospitalist
DX: A09 Infectious gastroenteritis and colitis, unspecified (principal); E11.51 Type 2 diabetes mellitus with diabetic peripheral angiopathy without gangrene; E78.00 Pure hypercholesterolemia, unspecified; I10 Essential (primary) hypertension; I82.511 Chronic embolism and thrombosis of right femoral vein; Z79.01 Long term (current) use of anticoagulants; N40.0 Benign prostatic hyperplasia without lower urinary tract symptoms; Z87.891 Personal history of nicotine dependence; M45.9 Ankylosing spondylitis of unspecified sites in spine; E86.0 Dehydration
CPT/HCPCS: 36415; 74177; 80053; 81001; 82948; 83735; 84100; 84484; 85025; 85610; 85730; 87045; 87177; 87209; 87230; 93005; 93971; 97110; 97116; 97162; 97530; 99285; G0328; G0378; G8978; G8979; J0744; J7030; Q9966; Q9967